=== PATIENT | female | born 1945 | race Caucasian/White ===

== ENCOUNTER → 2018-10-15 | Outpatient (CLI) | payer MEDICARE, OTHER ==
[~2018-10-15] MED LIST: ALBIPROI INH; ALBU90OI61 INH; ALLERGY RELIEF180 MG PO; ASPI81EC PO; BUDE10.22 INH; Bactrim Ds Tab1 EACH PO; FLUT44OIA IH; FURO20 PO; HYDR1TAB94 PO; IBUP800 PO; IMIP25 PO; Micro-K10 MEQ; POTASSIUM; POTCHL20ER PO; PRAM.5 PO; Percocet 5-3251 EACH PO; TORSE20 PO; VALSARTAN-HCTZ1 EAC4 PO; VERAPAMIL ER120 MG PO; Valium5 MG PO; Zithromax250 MG PO; [UNRECOGNIZED DRUG - OTHER]; [UNRECOGNIZED DRUG - REMARK] PO
== END | disposition home or self-care (01) ==
LOC: LAB SHORT 16:15 → LAB 16:15
DX: L08.9 Local infection of the skin and subcutaneous tissue, unspecified (principal)
CPT/HCPCS: 87070; 87075; 87147; 87205

== ENCOUNTER 2019-01-22 14:28 | Emergency (ER) | payer MEDICARE, OTHER ==
[~2019-01-22] VITALS: Ht 152.4 cm; Wt 133.8 kg
[2019-01-22 14:57] LABS: BASOPHILS ABSOLUTE AUTO 0.03 K/mm3 (0.00-0.23); BASOPHILS PERCENT AUTO 0 % (0-2); EOSINOPHILS ABSOLUTE AUTO 0.04 K/mm3 (0.00-0.68); EOSINOPHILS PERCENT AUTO 1 % (0-6); Hematocrit 42.3 % (33.0-51.0); Hemoglobin 12.1 g/dL (11.5-16.0); IMMATURE GRAN ABSOLUTE AUTO 0.02 K/mm3 (0.00-0.10); IMMATURE GRAN PERCENT AUTO 0 % (0-1); LYMPHOCYTES ABSOLUTE AUTO 0.81 K/mm3 (0.84-5.20); LYMPHOCYTES PERCENT AUTO 10 % (21-46); MONOCYTES ABSOLUTE AUTO 0.65 K/mm3 (0.16-1.47); MONOCYTES PERCENT AUTO 8 % (4-13); Mean Corpuscular HGB Conc 28.6 g/dL (31.5-36.5); Mean Corpuscular Volume 98 fL (80-100); Mean Platelet Volume 9.8 fL (9.1-12.4); NEUTROPHILS PERCENT AUTO 81 % (41-73); Platelet Count 207 K/mm3 (150-400); RDW Coefficient Variation 14.8 % (11.7-14.2); RDW Standard Deviation 53.4 fL (35.1-46.3); Red Blood Cell Count 4.32 M/mm3 (3.80-5.20); White Blood Cell Count 8.05 K/mm3 (4.00-11.30)
[2019-01-22 15:13] LABS: Albumin, Blood 2.9 g/dL (3.4-5.0); Albumin/Globulin Ratio 0.5 (0.8-1.8); Bilirubin, Total 0.3 mg/dL (0.1-1.0); Bun/Creatinine Ratio 32.7 (12.0-20.0); Calcium, Blood 8.9 mg/dL (8.5-10.1); Creatinine, Blood 1.13 mg/dL (0.40-1.00); Globulin, Blood 5.3 g/dL (2.2-4.0); Potassium, Blood 4.5 mmol/L (3.5-5.5); Total Protein, Blood 8.2 g/dL (6.4-8.2)
[2019-01-22 17:42] LABS: Source, Urine Catheter
[2019-01-22] MEDS ORDERED: CARV6.25 PO (17:44)
[2019-01-22] MEDS ORDERED: LOSARTAN-HCTZ1 EAC2 PO (17:45)
[2019-01-22 18:22] LABS: Bilirubin, Urine Neg (Neg); Blood, Urine 1+ (Neg); Glucose Qualitative, Urine Neg (Neg); Ketones, Urine 1+ (Neg); Leukocyte Esterase, Urine 1+ (Neg); Nitrite, Urine Neg (Neg); Protein, Urine 2+ (Neg); Urobilinogen, Urine 1+ (Normal)
[2019-01-22 18:32] LABS: Appearance, Urine Clear (Clear); Color, Urine Yellow (P-Yellow)
[2019-01-22 18:43] LABS: Amorphous Light (0-Heavy); Bacteria Mod /hpf; Red Blood Cells, Urine 0-2 /hpf (0-2)
[2019-01-22 18:44] LABS: Squamous Epithelial Cells Mod /hpf (Few)
[2019-01-22 18:59] LABS: Free Thyroxine 0.98 ng/dL (0.70-1.60)
[2019-01-22 19:01] LABS: Triiodothyronine, Free 2.09 pg/mL (2.18-3.98)
== END 2019-01-22 20:26 | disposition home or self-care (01) ==
LOC: ER 14:28
PROVIDERS: Emergency Medicine; Physician Assistant
DX: R53.1 Weakness (principal); J44.9 Chronic obstructive pulmonary disease, unspecified; I10 Essential (primary) hypertension; E66.01 Morbid (severe) obesity due to excess calories; Z79.899 Other long term (current) drug therapy; Z79.82 Long term (current) use of aspirin; Z68.43 Body mass index [BMI] 50.0-59.9, adult
CPT/HCPCS: 36415; 70450; 71046; 80053; 81001; 83880; 84439; 84443; 84481; 84484; 85025; 87086; 93005; 93010; 99284-25; P9612

== ENCOUNTER 2019-01-26 16:19 | Inpatient (IN) | payer MEDICARE, OTHER ==
[~2019-01-26] VITALS: Ht 180.3 cm; Wt 133.8 kg
[~2019-01-26 16:19] MED LIST changes: +CARV6.25 PO; +LOSARTAN-HCTZ1 EAC2 PO
[2019-01-26 17:30] LABS: BASOPHILS ABSOLUTE AUTO 0.03 K/mm3 (0.00-0.23); BASOPHILS PERCENT AUTO 0 % (0-2); EOSINOPHILS ABSOLUTE AUTO 0.04 K/mm3 (0.00-0.68); EOSINOPHILS PERCENT AUTO 0 % (0-6); IMMATURE GRAN ABSOLUTE AUTO 0.03 K/mm3 (0.00-0.10); IMMATURE GRAN PERCENT AUTO 0 % (0-1); LYMPHOCYTES ABSOLUTE AUTO 0.76 K/mm3 (0.84-5.20); LYMPHOCYTES PERCENT AUTO 8 % (21-46); MONOCYTES ABSOLUTE AUTO 0.65 K/mm3 (0.16-1.47); MONOCYTES PERCENT AUTO 7 % (4-13); Mean Corpuscular HGB 27.5 pg (26.0-34.0); Mean Corpuscular HGB Conc 28.6 g/dL (31.5-36.5); Mean Corpuscular Volume 96 fL (80-100); Mean Platelet Volume 9.7 fL (9.1-12.4); NEUTROPHILS PERCENT AUTO 84 % (41-73); Platelet Count 194 K/mm3 (150-400); RDW Coefficient Variation 14.9 % (11.7-14.2); RDW Standard Deviation 52.5 fL (35.1-46.3); Red Blood Cell Count 4.37 M/mm3 (3.80-5.20); White Blood Cell Count 9.11 K/mm3 (4.00-11.30)
[2019-01-26 17:50] LABS: Alanine Aminotransfer (ALT/SGP 18 U/L (12-78); Albumin, Blood 2.9 g/dL (3.4-5.0); Albumin/Globulin Ratio 0.5 (0.8-1.8); Alk Phos 107 U/L (50-136); Anion Gap 1 mmol/L (6-16); Aspartate Aminotrans (AST/SGOT 14 U/L (12-37); Bilirubin, Total 0.4 mg/dL (0.1-1.0); Blood Urea Nitrogen 22 mg/dL (8-24); Bun/Creatinine Ratio 30.9 (12.0-20.0); CO2, Blood 39 mmol/L (21-32); Calcium, Blood 9.3 mg/dL (8.5-10.1); Chloride, Blood 96 mmol/L (98-108); Creatinine, Blood 0.71 mg/dL (0.40-1.00); Globulin, Blood 5.5 g/dL (2.2-4.0); Glomerular Filtration Rate >60 (60-); Glucose, Blood 145 mg/dL (70-99); Potassium, Blood 4.4 mmol/L (3.5-5.5); Sodium, Blood 136 mmol/L (136-145); Total Protein, Blood 8.4 g/dL (6.4-8.2); Troponin I <0.015 ng/mL (0.000-0.040)
[2019-01-26] MEDS ORDERED: FURO40 PO (19:01)
[2019-01-26] MEDS ORDERED: PRAM.5 PO (19:04)
[2019-01-27 01:03] LABS: Adenovirus Not Detected (NOT DETECT); Coronavirus 229E Not Detected (NOT DETECT); Coronavirus HKU1 Not Detected (NOT DETECT); Coronavirus NL63 Not Detected (NOT DETECT); Coronavirus OC43 Not Detected (NOT DETECT); Human Metapneumovirus Not Detected (NOT DETECT); Human Rhinovirus/Enterovirus Not Detected (NOT DETECT); Influenza A Not Detected (NOT DETECT); Influenza A/H1 Not Detected (NOT DETECT); Influenza A/H3 Not Detected (NOT DETECT)
[2019-01-27 01:04] LABS: Bordetella pertussis Not Detected (NOT DETECT); Chlamydophila pneumoniae Not Detected (NOT DETECT); Influenza A/2009-H1 Not Detected (NOT DETECT); Influenza B Not Detected (NOT DETECT); Mycoplasma pneumoniae Not Detected (NOT DETECT); Parainfluenza Virus 1 Not Detected (NOT DETECT); Parainfluenza Virus 2 Not Detected (NOT DETECT); Parainfluenza Virus 3 Not Detected (NOT DETECT); Parainfluenza Virus 4 Not Detected (NOT DETECT); Respiratory Syncytial Virus Not Detected (NOT DETECT)
[2019-01-27 05:31] LABS: BASOPHILS ABSOLUTE AUTO 0.03 K/mm3 (0.00-0.23); BASOPHILS PERCENT AUTO 0 % (0-2); EOSINOPHILS ABSOLUTE AUTO 0.04 K/mm3 (0.00-0.68); EOSINOPHILS PERCENT AUTO 1 % (0-6); Hematocrit 39.3 % (33.0-51.0); Hemoglobin 11.1 g/dL (11.5-16.0); IMMATURE GRAN ABSOLUTE AUTO 0.02 K/mm3 (0.00-0.10); IMMATURE GRAN PERCENT AUTO 0 % (0-1); LYMPHOCYTES ABSOLUTE AUTO 0.74 K/mm3 (0.84-5.20); LYMPHOCYTES PERCENT AUTO 11 % (21-46); MONOCYTES ABSOLUTE AUTO 0.59 K/mm3 (0.16-1.47); MONOCYTES PERCENT AUTO 9 % (4-13); Mean Corpuscular HGB 27.5 pg (26.0-34.0); Mean Corpuscular HGB Conc 28.2 g/dL (31.5-36.5); Mean Corpuscular Volume 98 fL (80-100); Mean Platelet Volume 10.2 fL (9.1-12.4); NEUTROPHILS ABSOLUTE AUTO 5.41 K/mm3 (1.96-9.15); NEUTROPHILS PERCENT AUTO 79 % (41-73); Platelet Count 199 K/mm3 (150-400); RDW Coefficient Variation 15.2 % (11.7-14.2); RDW Standard Deviation 54.3 fL (35.1-46.3); Red Blood Cell Count 4.03 M/mm3 (3.80-5.20); White Blood Cell Count 6.83 K/mm3 (4.00-11.30)
--- NOTE | 2019-01-27 05:57 | NUR ---
SHIFT SUMMARY PT NEW ED ADMIT THIS EVENING. PT SOB, LUNG SOUNDS DIM THROUGHOUT WITH CRACKLES IN THE BASES. PT EDEMATOUS IN BLE'S WITH 3+ EDEMA. REDNESS IN PANNUS FOLDS. NYSTATIN POWDER ORDERED AND PLACED ON PT. PT HAS NOT VOIDED THIS EVENING, FAMILY SAYS THIS IS NOT UNUSUAL FOR HER TO GO STRETCHES WITHOUT VOIDING. PT VERY TIRED THIS EVENING. PT GETS WORKED UP EASILY REQUIRING 4-5 L O2 NC TO KEEP O2 SATS GREATER THAN 90%. PT ALSO WORE CPAP AT NIGHT WITH 4-5 L O2 BLEED IN. FAMILY TO BRING IN HOME CPAP TODAY. VERY SUPPORTIVE FAMILY. PT BECOMES SOB VERY EASILY WITH LITTLE TO NO EXERTION. CANNOT BE LAID DOWN FLAT. PT HAS POOR APPETITE AT THIS. DENIES PAIN WHILE IN BED. DOES REPORT SHE HAS PAIN IN HER KNEES WHEN SHE AMBULATES. PT HAS NOT BEEN OUT OF BED SINCE ADMISSION. GRANDDAUGHTER AT BEDSIDE THROUGHOUT THE NIGHT. PT CONTINUES TO BE VERY SLEEPY. RESTING AT THIS TIME. BLOOD PRESSURE ELEVATED THIS EVENING, [facility] OCCUPATIONAL THERAPIST NOTIFIED. NEW ORDER FOR PO APRESOLINE 25 MG X 1 AND APRESOLINE 10 MG IV Q 4 PRN. BLOOD PRESSURE IMPROVED BUT REMAINS SLIGHTLY ELEVATED. OTHERWISE VSS AND PT RESTING AT THIS TIME. WILL CONTINUE TO MONITOR AND REPORT TO DAY RN.
[2019-01-27 06:26] LABS: Anion Gap 0 mmol/L (6-16); Blood Urea Nitrogen 21 mg/dL (8-24); CO2, Blood 40 mmol/L (21-32); Calcium, Blood 8.9 mg/dL (8.5-10.1); Chloride, Blood 99 mmol/L (98-108); Creatinine, Blood 0.81 mg/dL (0.40-1.00); Glomerular Filtration Rate >60 (60-); Glucose, Blood 111 mg/dL (70-99); Potassium, Blood 4.8 mmol/L (3.5-5.5); Sodium, Blood 139 mmol/L (136-145)
--- NOTE | 2019-01-27 16:38 | NUR ---
SHIFT SUMMARY PATIENT A&O X4, 2PA TO BSC. DENIES ANY PAIN OR NAUSEA THIS SHIFT. SOB WITH ANY ACTIVITY. O2 @ 4L NC. PATIENT WEARS CPAP WHILE SLEEPING. VSS. SATS >90%. REPOSITIONED PATIENT NEEDED. FAMILY AT THE BEDSIDE. NO ACUTE CHANGES. BED IN LOWEST POSITION, CALL LIGHT WITHIN REACH. RN WILL CONTINUE TO MONITOR.
[2019-01-28 05:43] LABS: Albumin, Blood 2.7 g/dL (3.4-5.0); Anion Gap 1 mmol/L (6-16); Blood Urea Nitrogen 24 mg/dL (8-24); Bun/Creatinine Ratio 26.9 (12.0-20.0); CO2, Blood 39 mmol/L (21-32); Calcium, Blood 8.9 mg/dL (8.5-10.1); Chloride, Blood 98 mmol/L (98-108); Creatinine, Blood 0.89 mg/dL (0.40-1.00); Glomerular Filtration Rate >60 (60-); Glucose, Blood 128 mg/dL (70-99); Phosphorus, Blood 3.1 mg/dL (2.5-4.9); Potassium, Blood 4.7 mmol/L (3.5-5.5); Sodium, Blood 138 mmol/L (136-145)
--- NOTE | 2019-01-28 17:17 | NUR ---
SHIFT SUMMARY THE PATIENT PRESENTED THIS SHIFT WITH VITALS WNL, A&O X4 AND LUNG SOUNDS THAT WERE DIMINISHED AND COARSE IN THE BASES. THE PATIENT GOT TO HER CHAIR AT 1400 AND HAS BEEN THERE SINCE, VISITING WITH HER FAMILY. ALSO UP TO THE BEDSIDE COMMODE TWIVE. THE PATIENT'S FAMILY HAS BEEN WITH THE PATIENT ALL SHIFT. THE PATIENT IS VISITING WITH HER FAMILY, WILL CONTINUE TO MONITOR.
--- NOTE | 2019-01-29 02:28 | NUR ---
PT UNCOMFORTABLE PT REPORTING 10/10 DISCOMFORT DUE TO RESTLESS LEGS BOTHERING HER STATES IT IS A TINGLING SHARP PAIN THAT KEEPS COMING AND GOING. PT WAS MEDICATED W/MIRAPEX, TOFRANIL & TYLENOL PER ORDERS, NONE OF THESE MEDICATIONS SEEMED TO HELP DISCOMFORT. HEAT & ICE WERE BOTH ALSO TRIED WHICH SHOWED NO IMPROVEMENTS. PT STILL MOANING SITTING ON SIDE OF BED W/SPO2 DROPPING DUE TO DISCOMFORT, ENCOURAGED DEEP BREATHING THROUGH NOSE WHICH INCREASED SPO2. DR ESCOBEDO NOTIFIED OF PTS DISCOMFORT & 2.5 MG/10MG SYRINGE VALIUM GIVEN PER ORDERS, WASTED REST OF MEDICATION W/RUBY REBOLLEDO RN. PT NOW STATES DISCOMFORT IS 5/10 IN BILATERAL LEGS. WILL CONTINUE TO MONITOR PT.
[2019-01-29 06:00] LABS: Albumin, Blood 2.6 g/dL (3.4-5.0); Anion Gap 0 mmol/L (6-16); Blood Urea Nitrogen 19 mg/dL (8-24); Bun/Creatinine Ratio 25.9 (12.0-20.0); CO2, Blood 38 mmol/L (21-32); Calcium, Blood 8.9 mg/dL (8.5-10.1); Chloride, Blood 101 mmol/L (98-108); Creatinine, Blood 0.73 mg/dL (0.40-1.00); Glomerular Filtration Rate >60 (60-); Glucose, Blood 110 mg/dL (70-99); Phosphorus, Blood 3.2 mg/dL (2.5-4.9); Potassium, Blood 5.3 mmol/L (3.5-5.5); Sodium, Blood 139 mmol/L (136-145)
--- NOTE | 2019-01-29 06:21 | NUR ---
SHIFT SUMMARY PT AWAKE MOST OF NIGHT DUE TO BILATERAL LEG DISCOMFORT FROM RESTLESS LEGS, READ PREVIOUS NOTE. PT WAS MEDICATED PER ORDERS AFTER NOTIFYING HOSPITALIST THAN PT WAS ABLE TO GET A COUPLE HOURS OF SLEEP W/DISCOMFORT DROPPING TO A 3/10. DENIES NAUSEA, HAS SOB W/ANY EXERTION OR ACTIVITY. HAS DIFFICULTY BREATHING WHEN LAID FLAT, SPO2 DROPS W/ACTIVITY OR DISCOMFORT & PT IS REMINDED TO TAKE DEEP BREATHS IN THROUGH NASAL CANNULA WHICH THAN SLOWLY RAISES SPO2 >90%, ON 4L NC & WORE CPAP WHILE ASLEEP. 2 PERSON ASSIST W/GAITBELT & FWW TO BS. MARTA @BEDSIDE T/O NIGHT, CALL LIGHT IN REACH & I WILL CONTINUE TO MONITOR.
[2019-01-29 06:40] LABS: BASOPHILS ABSOLUTE AUTO 0.04 K/mm3 (0.00-0.23); BASOPHILS PERCENT AUTO 1 % (0-2); EOSINOPHILS ABSOLUTE AUTO 0.06 K/mm3 (0.00-0.68); EOSINOPHILS PERCENT AUTO 1 % (0-6); Hematocrit 39.4 % (33.0-51.0); Hemoglobin 11.1 g/dL (11.5-16.0); IMMATURE GRAN ABSOLUTE AUTO 0.02 K/mm3 (0.00-0.10); IMMATURE GRAN PERCENT AUTO 0 % (0-1); LYMPHOCYTES ABSOLUTE AUTO 0.96 K/mm3 (0.84-5.20); LYMPHOCYTES PERCENT AUTO 13 % (21-46); MONOCYTES ABSOLUTE AUTO 0.67 K/mm3 (0.16-1.47); MONOCYTES PERCENT AUTO 9 % (4-13); Mean Corpuscular HGB 27.4 pg (26.0-34.0); Mean Corpuscular HGB Conc 28.2 g/dL (31.5-36.5); Mean Corpuscular Volume 97 fL (80-100); Mean Platelet Volume 9.7 fL (9.1-12.4); NEUTROPHILS ABSOLUTE AUTO 5.53 K/mm3 (1.96-9.15); NEUTROPHILS PERCENT AUTO 76 % (41-73); Platelet Count 178 K/mm3 (150-400); RDW Standard Deviation 53.3 fL (35.1-46.3); Red Blood Cell Count 4.05 M/mm3 (3.80-5.20); White Blood Cell Count 7.28 K/mm3 (4.00-11.30)
--- NOTE | 2019-01-29 18:37 | NUR ---
SHIFT SUMMARY ANALILIA STRUGGLED WITH HTN TODAY. PRN HYDRALAZINE GIVEN. DR RAINES INFORMED. 3-4L OXYGEN NC WORKED WELL FOR HER. WORKED WITH PT. 1PA TO BSC/BATHROOM. R UPPER ABD SHOWED SM SKIN SORE, CHRONIC PER PT. RED RASH IN GROIN, NYSTATIN IN EMAR. WCTM
--- NOTE | 2019-01-29 22:35 | NUR ---
RESTLESS LEG SYNDROME REMAINS UNRESOLVED. PT AND FAMILY AT THE BEDSIDE ARE C/O SEVERE RESTLESS LEG SYNDROME. THEY REPORT THAT PT RECEIVED A ONE TIME ORDER OF VALIUM IN THE EARLY HOURS THIS MORNING. THEY ARE REQUESTING ANOTHER DOSE SO THAT THE PT CAN SLEEP. HOSPITALIST WAS CALLED AND A NICOLE WARNING ABOUT RESPIRATORY DEPRESSION WAS ADVISED. PT AND FAMILY WERE GENTLY EDUCATED ABOUT THE RISKS FOR RESPIRATORY DEPRESSION ASSOCIATED WITH THE USE OF VALIUM. PT WAS MADE AWARE THAT ANOTHER ONE TIME ORDER OF VALIUM WAS AVAILABLE BUT BOTH FAMILY AND PT REFUSED AT THIS TIME. PT REMAINS CHRISTIANSON, AND SOB IN BED. PT HAS RESOLVED TO "JUST GET THRU IT FOR TONIGHT" WILL CONTINUE TO MONITOR.
--- NOTE | 2019-01-30 05:22 | NUR ---
VSS, AFEBRILE, A/O, OBESE, CHRISTIANSON, LUNGS ARE WHEEZY/TIGHT, PT DESATS EASILY, CPAP AT HS, FAMILY AT THE BEDSIDE, PT HAS A ONE TIME ORDER FOR VALIUM BUT IS WORRIED ABOUT GOING TO THE ICU ON A VENT IF SHE TAKES TOO MUCH OF THAT. RESTLESS LEG SYNDROME WOKE HER OFTEN DURING THE NOC. WILL REPORT TO ON-COMING SHIFT
--- NOTE | 2019-01-30 07:14 | NUR ---
PATIENT PERMISSION PATIENT GAVE THIS STUDENT NURSE PERMISSION TO PROVIDE CARE ON 01/30/19 FROM [phone].
--- NOTE | 2019-01-30 18:35 | NUR ---
PATIENT ALERT AND ORIENTED. GETS WINDED WITH SMALL MOVEMENTS; SUCH , DANGLING. IS ONE PERSON ASSIST TO BSC OR BATHROOM, BUT NEEDS HELP IN CLEANING. NO REDNESS BACK OR BUTTOCK OBSERVED. SLIGHT REDNESS TO PANUS WITH NYSTATIN USED. COOPERATIVE. PLEASANT. RELATIVES VERY ATTENTIVE. WILL CONTINUE TO MONITOR.
--- NOTE | 2019-01-31 05:05 | NUR ---
VSS, AFEBRILE, A/O. PT SLEPT WELL OVERNOC WITH CPAP IN PLACE. NO COMPLAINTS OF RESTLESS LEGS OR DISCOMFORT NOTED. PT IS HOLDING HER 02 SATURATION BETTER TODAY THAN SHE HAS OVER THE PAST FEW DAYS. WILL REPORT TO ON-COMING SHIFT.
[2019-01-31 06:10] LABS: Albumin, Blood 2.7 g/dL (3.4-5.0); Anion Gap 1 mmol/L (6-16); Blood Urea Nitrogen 22 mg/dL (8-24); CO2, Blood 41 mmol/L (21-32); Chloride, Blood 96 mmol/L (98-108); Creatinine, Blood 0.79 mg/dL (0.40-1.00); Glomerular Filtration Rate >60 (60-); Glucose, Blood 95 mg/dL (70-99); Phosphorus, Blood 3.4 mg/dL (2.5-4.9); Potassium, Blood 5.2 mmol/L (3.5-5.5); Sodium, Blood 138 mmol/L (136-145)
--- NOTE | 2019-01-31 08:04 | NUR ---
Patient gave nursing aide permission to provide care [id number].
[2019-01-31] MEDS ORDERED: ACETAMINOPHEN500 MG PO (12:49)
[2019-01-31] MEDS ORDERED: ALBU2.5V5 NEB (12:50)
[2019-01-31] MEDS ORDERED: AZIT500 PO (12:51)
[2019-01-31] MEDS ORDERED: CEFU500T30 PO (12:51)
[2019-01-31] MEDS ORDERED: Senna Plus Tab1 EACH PO (12:53)
[2019-01-31] MEDS ORDERED: GUAI600T33 PO (12:53)
[2019-01-31] MEDS ORDERED: Nystop60 GM TOP (12:56)
--- NOTE | 2019-01-31 15:23 | NUR ---
PATIENT D/C'D TO [facility] VIA W/C VAN. PACKET GIVEN TO PALS NURSE. REPORT CALLED TO AMADOR RIVERA. PATIENT DENIES ANY QUESTIONS OR CONCERNS.IV D/C'D PRIOR TO D/C.
== END 2019-01-31 15:06 | DRG 193 ==
LOC: ER 16:19 → MEDS 18:26 → ENPENDDIS 01-31 11:00 → MEDS 01-31 15:06
PROVIDERS: Internal Medicine; Physician Assistant; ADMIT Internal Medicine
PROC: 5A09357 Assistance with Respiratory Ventilation, Less than 24 Consecutive Hours, Continuous Positive Airway Pressure (ICD-10-PCS; principal; 2019-01-26)
DX: J18.1 Lobar pneumonia, unspecified organism (principal); J96.21 Acute and chronic respiratory failure with hypoxia; J44.0 Chronic obstructive pulmonary disease with (acute) lower respiratory infection; Z68.41 Body mass index [BMI] 40.0-44.9, adult; E66.2 Morbid (severe) obesity with alveolar hypoventilation; Z79.82 Long term (current) use of aspirin; G25.81 Restless legs syndrome; I12.9 Hypertensive chronic kidney disease with stage 1 through stage 4 chronic kidney disease, or unspecified chronic kidney disease; N18.3 Chronic kidney disease, stage 3 (moderate); Z99.81 Dependence on supplemental oxygen
CPT/HCPCS: 36415; 71260; 80048; 80053; 80069; 83605; 83880; 84145; 84484; 85025; 87040; 87486; 87581; 87633; 87798; 90686; 94640; 94660; 94762; 96365-59; 97110; 97116; 97162; 97530; 99285-25; J0360; J0456; J0696; J1650; J3360; J7050; Q9967

== ENCOUNTER 2019-02-01 23:13 | Inpatient (IN) | payer MEDICARE, OTHER ==
[~2019-02-01] VITALS: Ht 152.4 cm; Wt 144.2 kg
[~2019-02-01 23:13] MED LIST changes: +ACETAMINOPHEN500 MG PO; +ALBU2.5V5 NEB; +AZIT500 PO; +CEFU500T30 PO; +FURO40 PO; +GUAI600T33 PO; +Nystop60 GM TOP; +Senna Plus Tab1 EACH PO
[2019-02-01 23:31] LABS: BASOPHILS ABSOLUTE AUTO 0.02 K/mm3 (0.00-0.23); BASOPHILS PERCENT AUTO 0 % (0-2); EOSINOPHILS ABSOLUTE AUTO 0.05 K/mm3 (0.00-0.68); EOSINOPHILS PERCENT AUTO 1 % (0-6); Hematocrit 39.3 % (33.0-51.0); Hemoglobin 10.9 g/dL (11.5-16.0); IMMATURE GRAN ABSOLUTE AUTO 0.02 K/mm3 (0.00-0.10); IMMATURE GRAN PERCENT AUTO 0 % (0-1); LYMPHOCYTES PERCENT AUTO 11 % (21-46); MONOCYTES ABSOLUTE AUTO 0.58 K/mm3 (0.16-1.47); MONOCYTES PERCENT AUTO 9 % (4-13); Mean Corpuscular HGB 28.2 pg (26.0-34.0); Mean Corpuscular HGB Conc 27.7 g/dL (31.5-36.5); Mean Corpuscular Volume 102 fL (80-100); NEUTROPHILS PERCENT AUTO 79 % (41-73); Platelet Count 170 K/mm3 (150-400); RDW Coefficient Variation 14.9 % (11.7-14.2); RDW Standard Deviation 56.3 fL (35.1-46.3); Red Blood Cell Count 3.86 M/mm3 (3.80-5.20); White Blood Cell Count 6.37 K/mm3 (4.00-11.30)
[2019-02-01 23:47] LABS: Alanine Aminotransfer (ALT/SGP 17 U/L (12-78); Albumin, Blood 2.6 g/dL (3.4-5.0); Albumin/Globulin Ratio 0.5 (0.8-1.8); Alk Phos 89 U/L (50-136); Anion Gap 0 mmol/L (6-16); Aspartate Aminotrans (AST/SGOT 17 U/L (12-37); Bilirubin, Total 0.2 mg/dL (0.1-1.0); Blood Urea Nitrogen 28 mg/dL (8-24); CO2, Blood 43 mmol/L (21-32); Calcium, Blood 8.9 mg/dL (8.5-10.1); Chloride, Blood 95 mmol/L (98-108); Globulin, Blood 5.1 g/dL (2.2-4.0); Glomerular Filtration Rate 58 (60-); Glucose, Blood 168 mg/dL (70-99); Potassium, Blood 5.5 mmol/L (3.5-5.5); Sodium, Blood 138 mmol/L (136-145); Total Protein, Blood 7.7 g/dL (6.4-8.2); Troponin I <0.015 ng/mL (0.000-0.040)
[2019-02-01 23:49] LABS: PO2 Arterial 79.4 mmHg (80-100); pH Blood Arterial 7.29 (7.35-7.45)
[2019-02-01 23:50] LABS: PCO2 Arterial 98 mmHg (35-45)
[2019-02-02 00:16] LABS: Source, Urine Catheter
[2019-02-02 00:19] LABS: Bilirubin, Urine Neg (Neg); Blood, Urine Neg (Neg); Glucose Qualitative, Urine Neg (Neg); Ketones, Urine 1+ (Neg); Leukocyte Esterase, Urine Neg (Neg); Nitrite, Urine Neg (Neg); Protein, Urine 1+ (Neg); Specific Gravity, Urine 1.025 (1.003-1.022); Urobilinogen, Urine NORM (Normal)
[2019-02-02 00:21] LABS: Appearance, Urine Clear (Clear); Color, Urine Yellow (P-Yellow)
--- NOTE | 2019-02-02 03:45 | NUR ---
Admission: Patient arrived to unit at 0330hr via stretcher, accompanied by ED nurse. ON 3L/NC, O2-94%, denies dyspnea/SOB with HOB elevated, c/o slight dyspnea lying flat. Placed back on BiPAP mask at 22/8/35%, until repeat ABG is drawn, tolerating mask without difficulty. Denies pain/discomfort. VSS, hearth rhythm shows NSR to sinus fercho, 50's-60's, with occasional PAC's. Periphearl IV to LAC patent and intact. Benitez cath patent and intact, draining yellow/blood tinged urine. Will continue to monitor urine consistency, appears only to be small amount of blood at this time, catheter newly placed in ED before admission. Several family members to room, at bedside. Will continue to monitor for pain, safety, comfort.
[2019-02-02 04:51] LABS: PCO2 Arterial 81.5 mmHg (35-45); PO2 Arterial 58.6 mmHg (80-100); pH Blood Arterial 7.37 (7.35-7.45)
--- NOTE | 2019-02-02 06:19 | NUR ---
Shift Summary: Patient slept well throughout remainder of shift. Continued on BiPAP mask at 22/8/35% without difficulty. ABD at 0500 showed improvement, but CO2 remained elevated (81.5), no changes made to BiPAP settings. Continues to deny pain/discomfort. Benitez cath remains patent and intact, amount of blood in urine decreasing, now only very scant amount, light pink tinged. New peripheral IV placed to rt forearm, both IV's remain patent and intact. VSS, O2-92-96%. Several family members remain in room, calm and cooperative with staff. Will continue to monitor until report to day shift RN.
[2019-02-02 06:21] LABS: BASOPHILS ABSOLUTE AUTO 0.02 K/mm3 (0.00-0.23); BASOPHILS PERCENT AUTO 0 % (0-2); EOSINOPHILS ABSOLUTE AUTO 0.03 K/mm3 (0.00-0.68); EOSINOPHILS PERCENT AUTO 0 % (0-6); Hematocrit 38.5 % (33.0-51.0); Hemoglobin 10.7 g/dL (11.5-16.0); IMMATURE GRAN ABSOLUTE AUTO 0.01 K/mm3 (0.00-0.10); IMMATURE GRAN PERCENT AUTO 0 % (0-1); LYMPHOCYTES PERCENT AUTO 7 % (21-46); MONOCYTES ABSOLUTE AUTO 0.26 K/mm3 (0.16-1.47); MONOCYTES PERCENT AUTO 4 % (4-13); Mean Corpuscular HGB Conc 27.8 g/dL (31.5-36.5); Mean Corpuscular Volume 101 fL (80-100); Mean Platelet Volume 9.9 fL (9.1-12.4); NEUTROPHILS ABSOLUTE AUTO 6.02 K/mm3 (1.96-9.15); NEUTROPHILS PERCENT AUTO 88 % (41-73); Platelet Count 165 K/mm3 (150-400); RDW Standard Deviation 56.1 fL (35.1-46.3); Red Blood Cell Count 3.82 M/mm3 (3.80-5.20); White Blood Cell Count 6.84 K/mm3 (4.00-11.30)
[2019-02-02 07:20] LABS: CO2, Blood 43 mmol/L (21-32)
[2019-02-02 07:21] LABS: Albumin, Blood 2.8 g/dL (3.4-5.0); Anion Gap Unable to Calculate mmol/L (6-16); Blood Urea Nitrogen 29 mg/dL (8-24); Bun/Creatinine Ratio 31.1 (12.0-20.0); Calcium, Blood 9.2 mg/dL (8.5-10.1); Chloride, Blood 96 mmol/L (98-108); Creatinine, Blood 0.93 mg/dL (0.40-1.00); Glomerular Filtration Rate >60 (60-); Glucose, Blood 102 mg/dL (70-99); Phosphorus, Blood 2.8 mg/dL (2.5-4.9); Potassium, Blood 5.9 mmol/L (3.5-5.5); Sodium, Blood 138 mmol/L (136-145)
--- NOTE | 2019-02-02 13:18 | NUR ---
REASSESSMENT: PT TOLERATED AN HOUR BREAK OFF THE BIPAP THIS MORNING AND THEN WAS ABLE TO EAT LUNCH AT NOON AND IS STILL ON A BREAK FROM THE BIPAP. LUNGS ARE DIM, FEW SCATTERED WHEEZES. SR, BP STABLE. PANG WITH BLOOD TINGED URINE. LOTS OF FAMILY IN THE ROOM AND HAVE BEEN FULLY UPDATED.
--- NOTE | 2019-02-02 14:00 | NUR ---
RECEIVED REPORT FROM AMADOR Hardy WILL ASSUME CARE WHEN PATIENT ARRIVES TO PCU.
--- NOTE | 2019-02-02 14:16 | NUR ---
TRANSFER: PT TRANSFERRED TO PCU 16. REPORT GIVEN TO AMADOR CHANG. PT TRANSPORTED VIA BED WITH RN. BIPAP MOVED TO ROOM AND RT IN ROOM TO SET IT UP TO PUT PT BACK ON IT. PT'S FAMILY WITH HER AT TIME OF TRANSFER AND ALL BELONGINGS TRANSFERRED WITH PT.
--- NOTE | 2019-02-02 17:53 | NUR ---
DR GREEN IN TO SEE PATIENT TO EDUCATE FAMILY AND HELP THEM TO UNDERSTAND PATIENT STATUS AND CONDITION AT THIS TIME. WILL CONTINUE TO BE AVALIABLE TO FAMILY AND MONITOR PATIENT.
--- NOTE | 2019-02-02 19:55 | NUR ---
PT RESTED THROUGHOUT THE AFTERNOON, FAMILY AT BEDSIDE FOR SUPPORT AND ENCOURAGEMENT. A LOT OF EDUCATION GIVEN TO FAMILY R/T CONDITION AND CURRENT ILLNESS. WILL CONTINUE TO MONITOR AND GIVE REPORT TO NOC RN.
[2019-02-03 04:06] LABS: BASOPHILS ABSOLUTE AUTO 0.03 K/mm3 (0.00-0.23); BASOPHILS PERCENT AUTO 0 % (0-2); EOSINOPHILS ABSOLUTE AUTO 0.05 K/mm3 (0.00-0.68); EOSINOPHILS PERCENT AUTO 1 % (0-6); Hematocrit 36.9 % (33.0-51.0); Hemoglobin 10.6 g/dL (11.5-16.0); IMMATURE GRAN ABSOLUTE AUTO 0.03 K/mm3 (0.00-0.10); IMMATURE GRAN PERCENT AUTO 0 % (0-1); LYMPHOCYTES ABSOLUTE AUTO 1.08 K/mm3 (0.84-5.20); LYMPHOCYTES PERCENT AUTO 13 % (21-46); MONOCYTES ABSOLUTE AUTO 0.68 K/mm3 (0.16-1.47); MONOCYTES PERCENT AUTO 8 % (4-13); Mean Corpuscular HGB Conc 28.7 g/dL (31.5-36.5); Mean Platelet Volume 10.4 fL (9.1-12.4); NEUTROPHILS ABSOLUTE AUTO 6.52 K/mm3 (1.96-9.15); NEUTROPHILS PERCENT AUTO 78 % (41-73); Platelet Count 179 K/mm3 (150-400); RDW Coefficient Variation 15.1 % (11.7-14.2); RDW Standard Deviation 54.2 fL (35.1-46.3); Red Blood Cell Count 3.79 M/mm3 (3.80-5.20); White Blood Cell Count 8.39 K/mm3 (4.00-11.30)
[2019-02-03 04:07] LABS: Mean Corpuscular Volume 97 fL (80-100)
[2019-02-03 04:23] LABS: Anion Gap -1 mmol/L (6-16); Blood Urea Nitrogen 31 mg/dL (8-24); Bun/Creatinine Ratio 34.4 (12.0-20.0); CO2, Blood 44 mmol/L (21-32); Calcium, Blood 9.3 mg/dL (8.5-10.1); Chloride, Blood 95 mmol/L (98-108); Glomerular Filtration Rate >60 (60-); Glucose, Blood 101 mg/dL (70-99); Potassium, Blood 5.1 mmol/L (3.5-5.5); Sodium, Blood 138 mmol/L (136-145)
[2019-02-03 05:24] LABS: PO2 Arterial 61.1 mmHg (80-100); pH Blood Arterial 7.38 (7.35-7.45)
[2019-02-03 05:25] LABS: PCO2 Arterial 84 mmHg (35-45)
--- NOTE | 2019-02-03 06:33 | NUR ---
SHIFT SUMMARY PATIENT PLEASENT AND COOPERATIVE THROUGHOUT THE NIGHT. PATIENT ALERT AND ORIENTED. PATIENT COMPLIENT WITH BIPAP USE THROUGHOUT MOST OF THE NIGHT WITH SHORT OCCATIONAL BREAKS. PATIENT HAD BEEN OFF BIPAP FOR APPROX 30 MINUTES WHEN ABG WAS DRAWN THIS AM PER RESPIRTORY THERAPY REPORT. DR STANLEY AWARE OF CRITICAL CO2 LEVELS THIS AM. PATIENT CURRENTLY ON THE BIPAP AND APPEARS TO BE RESTING WELL IN BED. CONTINUOUS BIOX IN PLACE. RON SPENT THE NIGHT AT THE BEDSIDE. WILL CONTINUE TO MONITOR PATIENT AND REPORT TO ON COMING RN.
--- NOTE | 2019-02-03 08:17 | NUR ---
PT SLEEPING WAKES TO VERBAL STIMULI ONCE AWAKE PT ORIENTED NC PLACED BIOX 93-94% PT STATED SHE IS BREATHING OK BUT HAS SOME SOB AT REST NO COUGH FAMILY AT BEDSIDE PT WANTING TO EAT WASHCLOTH GIVEN TO WASH HER FACE WANTING TO A BATH LATER
--- NOTE | 2019-02-03 11:22 | NUR ---
PT HAVING ECHO AT BEDSIDE
--- NOTE | 2019-02-03 11:49 | NUR ---
echocardiogram complete
--- NOTE | 2019-02-03 14:00 | NUR ---
FAMILY REQ TO SPEAK WITH DR GREEN WHEN HE MAKES ROUNDS IF THEY ARE NOT HERE WHEN HE COMES IF HE CAN CALL THEM NUMBER LEFT
--- NOTE | 2019-02-03 20:17 | NUR ---
shift summary: Pt has done well this shift. Resting with bipap on at 30% FIO2 with family at bedside. Pt has tolerated the Bipap well this shift with 1-1 1/2 hour breaks for meals and breaks. Pt has been A/O throughout shift. Benitez cath in place and draining. VSS this shift. Report given to night nurse and care transfered.
--- NOTE | 2019-02-03 23:35 | NUR ---
CONVERTED TO AFIB AT APPROX 2258 PATIENT CONVERTED INTO AFIB. PATIENT REPORTED TO RN THAT SHE FELT, "A LITTLE FUNNY." DR STANLEY NOTIFIED AND AN ORDER FOR A ONE TIME PUSH OF 10 MG OF IV CARDIZEM WAS ORERED. DR STANLEY WAS ALSO ASKED FOR AN ABG IN THE AM. DR STANLEY STATED SHE DID NOT FEEL IT WAS NEEDED AT THIS TIME.
--- NOTE | 2019-02-04 01:15 | NUR ---
UPDATE IV PUSH OF CARDIZEM BROUGHT PATIENT DOWN INTO THE 80'S-100'S. HOWEVER, PATIENT HAS BEEN TRENDING BACK UP AND IS NOW BACK IN THE 120'S-130'S. DR STANLEY NOTIFIED AND SHE ORDERED A CARDIZEM GTT.
--- NOTE | 2019-02-04 06:43 | NUR ---
SHIFT SUMMARY PATIENT PLEASENT AND COOPERATIVE THROUGHOUT THE NIGHT. PATIENT APPEARED TO SLEEP WELL ON AND OFF LAST NIGHT WITH NO COMPLAINTS OF PAIN OR DISCOMFORT. PATIENT OFF CARDIZEM GTT AT THIS TIME PATIENT JUST CONVERTED BACK TO NSR WITH A RATE IN THE 70'S PER FEED ADVISER. PATIENT USED HER BIPAP THROUGHOUT MOST OF THE NIGHT. CONTINUOUS BIOX IN PLACE. PATIENT'S GRANDDAUGHTER STAYED THE NIGHT IN THE ROOM. WILL CONTINUE TO MONITOR PATIENT AND REPORT TO ONCOMING RN.
[2019-02-04 07:48] LABS: Blood Urea Nitrogen 34 mg/dL (8-24); Bun/Creatinine Ratio 34.5 (12.0-20.0); Calcium, Blood 9.1 mg/dL (8.5-10.1); Chloride, Blood 94 mmol/L (98-108); Creatinine, Blood 0.99 mg/dL (0.40-1.00); Glomerular Filtration Rate 59 (60-); Glucose, Blood 118 mg/dL (70-99); Potassium, Blood 4.6 mmol/L (3.5-5.5); Sodium, Blood 139 mmol/L (136-145)
[2019-02-04 07:54] LABS: Anion Gap Unable to Calculate mmol/L (6-16)
[2019-02-04 07:56] LABS: CO2, Blood >45 mmol/L (21-32)
--- NOTE | 2019-02-04 08:16 | NUR ---
RECEIVED REPORT AND ASSUMED CARE OF PATIENT. SHE IS ALERT AND PLEASANT THIS MORNING.
[2019-02-04 14:16] LABS: International Normalized Ratio 1.05; Prothrombin Time Results 11.1 Sec (9.7-11.5)
--- NOTE | 2019-02-04 19:46 | NUR ---
PT HAD A GOOD DAY TODAY, SHE HAS HAD PLEASANT AFFECT AND ABLE TO EXPRESS HER NEEDS APPROPRIATELY THIS SHIFT. FAMILY HAS BEEN AT BEDSIDE MOST OF THE DAY. DR GREEN SAW THE PATIENT TODAY AND DISCUSSED THE AFIB EVENT DURING THE PRIOR SHIFT, HE STARTED THE PATIENT ON BLOOD THINNER AND GAVE A LOT OF EDUCATION TO THE FAMILY ABOUT THE REASONS AND RATIONALE FOR USING THE BLOOD THINNER TO PREVENT A STROKE. PT HAS BEEN OFF AND ON THE BIPAP, HER O2 SAT HAVE BEEN BETWEEN 95-100%, TURNED O2 DOWN TO 2 LPM AND WILL CONTINUE TO MONITOR CLOSELY. PANG REMOVED AND PT VOIDED WITHOUT INCIDENT. WILL CONTINUE TO MONITOR AND GIVE REPORT TO NOC RN.
[2019-02-05 04:01] LABS: BASOPHILS ABSOLUTE AUTO 0.02 K/mm3 (0.00-0.23); BASOPHILS PERCENT AUTO 0 % (0-2); EOSINOPHILS ABSOLUTE AUTO 0.06 K/mm3 (0.00-0.68); EOSINOPHILS PERCENT AUTO 1 % (0-6); Hematocrit 35.2 % (33.0-51.0); IMMATURE GRAN ABSOLUTE AUTO 0.01 K/mm3 (0.00-0.10); IMMATURE GRAN PERCENT AUTO 0 % (0-1); LYMPHOCYTES ABSOLUTE AUTO 1.06 K/mm3 (0.84-5.20); LYMPHOCYTES PERCENT AUTO 18 % (21-46); MONOCYTES ABSOLUTE AUTO 0.66 K/mm3 (0.16-1.47); MONOCYTES PERCENT AUTO 11 % (4-13); Mean Corpuscular HGB 27.7 pg (26.0-34.0); Mean Corpuscular HGB Conc 28.4 g/dL (31.5-36.5); Mean Corpuscular Volume 98 fL (80-100); Mean Platelet Volume 10.4 fL (9.1-12.4); NEUTROPHILS PERCENT AUTO 70 % (41-73); Platelet Count 144 K/mm3 (150-400); RDW Coefficient Variation 15.4 % (11.7-14.2); RDW Standard Deviation 54.9 fL (35.1-46.3); Red Blood Cell Count 3.61 M/mm3 (3.80-5.20); White Blood Cell Count 6.01 K/mm3 (4.00-11.30)
[2019-02-05 04:28] LABS: Albumin, Blood 2.6 g/dL (3.4-5.0); Blood Urea Nitrogen 34 mg/dL (8-24); Bun/Creatinine Ratio 34.1 (12.0-20.0); Chloride, Blood 95 mmol/L (98-108); Glomerular Filtration Rate 58 (60-); Glucose, Blood 105 mg/dL (70-99); Phosphorus, Blood 3.6 mg/dL (2.5-4.9); Potassium, Blood 4.5 mmol/L (3.5-5.5); Sodium, Blood 140 mmol/L (136-145)
[2019-02-05 04:43] LABS: Anion Gap Unable to Calculate mmol/L (6-16); CO2, Blood >45 mmol/L (21-32)
--- NOTE | 2019-02-05 07:35 | NUR ---
SHIFT SUMMARY PATIENT PLEASENT AND COOPERATIVE THROUGHOUT THE NIGHT. PATIENT APPEARED TO SLEEP WELL THROUGHOUT THE NIGHT WITH NO COMPLAINTS OF PAIN OR DISCOMFORT. PATIENT USED BIPAP FOR MOST OF THE NIGHT WHILE SHE WAS ASLEEP. PATIENT CURRENTL AWAKE IN ROOM AND ON BIPAP. GRANDSON STAYED THE NIGHT AT THE BEDSIDE. PATIENT UP TO THE BSC WITH ONE ASSIST SEVERAL TIMES THROUGHOUT THE NIGHT. VITAL SIGNS CHARTED. REPORT GIVEN TO ONCOMING RN.
--- NOTE | 2019-02-05 07:48 | NUR ---
RECEIVED REPORT AND ASSUMED CARE OF PATIENT. SHE IS RESTING AND USING BIPAP AT THIS TIME. THE MASK IS LEAKING, REQUESTED FULL FACE MASK FROM RT, LEAK IS GREATLY IMPROVED AND PATIENT EXPRESSED CONTENTMENT. O2 SAT >92%, FIO2 30%, RR 20. WILL CONTINUE TO MONITOR. BED IN LOW POSITION, CALL LIGHT WITHIN EASY REACH.
--- NOTE | 2019-02-05 13:35 | NUR ---
PERMISSION FOR CARE Patient gave student permission to provide care on 02/06/19 from [phone].
--- NOTE | 2019-02-05 17:29 | NUR ---
PT HAD EPISODE OF HYPOGLYCEMIA, CBG AT 58, GAVE 8 OZ ORANGE JUICE AND A PIECE OF CHEESE. WILL RECHECK BLOOD SUGAR AT 1800.
--- NOTE | 2019-02-05 19:14 | NUR ---
PT HAD A GOOD DAY, SHE WAS UP WITH PT AND OT DURING THIS SHIFT. SHE WAS ABLE TO AMBULATE WITH THE WALKER AND GAIT BELT. PT ENCOURAGED HER TO WALK ACROSS THE ROOM TO USE THE BSC AND GET UP TO THE CHAIR MUCH POSSIBLE. PT IS HAVING EPISODES OF BRADYCARDIA DURING THIS SHIFT; ADDITIONALLY, PT CBG WAS LOW THIS EVENING. DECREASE URINE OUTPUT DURING SHIFT. PT UP TO BSC ONE TIME DURING THIS SHIFT WITH PT. PT CONTINUES TO USE 3 LPM NC WHEN OFF BIPAP, USING BIPAP WHEN SLEEPING AT FIO2 OF 30%. WILL GIVE REPORT TO ROLANDO ENGLISH.
[2019-02-06 04:28] LABS: BASOPHILS ABSOLUTE AUTO 0.02 K/mm3 (0.00-0.23); BASOPHILS PERCENT AUTO 0 % (0-2); EOSINOPHILS ABSOLUTE AUTO 0.09 K/mm3 (0.00-0.68); EOSINOPHILS PERCENT AUTO 1 % (0-6); Hematocrit 36.2 % (33.0-51.0); IMMATURE GRAN ABSOLUTE AUTO 0.02 K/mm3 (0.00-0.10); IMMATURE GRAN PERCENT AUTO 0 % (0-1); LYMPHOCYTES ABSOLUTE AUTO 0.92 K/mm3 (0.84-5.20); LYMPHOCYTES PERCENT AUTO 15 % (21-46); MONOCYTES ABSOLUTE AUTO 0.59 K/mm3 (0.16-1.47); MONOCYTES PERCENT AUTO 9 % (4-13); Mean Corpuscular HGB 27.8 pg (26.0-34.0); Mean Corpuscular HGB Conc 27.6 g/dL (31.5-36.5); Mean Platelet Volume 10.4 fL (9.1-12.4); NEUTROPHILS ABSOLUTE AUTO 4.63 K/mm3 (1.96-9.15); NEUTROPHILS PERCENT AUTO 74 % (41-73); Platelet Count 137 K/mm3 (150-400); RDW Coefficient Variation 15.1 % (11.7-14.2); RDW Standard Deviation 55.5 fL (35.1-46.3); White Blood Cell Count 6.27 K/mm3 (4.00-11.30)
[2019-02-06 04:30] LABS: Mean Corpuscular Volume 101 fL (80-100)
[2019-02-06 04:48] LABS: Albumin, Blood 2.6 g/dL (3.4-5.0); Blood Urea Nitrogen 37 mg/dL (8-24); Bun/Creatinine Ratio 34.6 (12.0-20.0); Calcium, Blood 8.9 mg/dL (8.5-10.1); Chloride, Blood 94 mmol/L (98-108); Creatinine, Blood 1.07 mg/dL (0.40-1.00); Glomerular Filtration Rate 54 (60-); Glucose, Blood 113 mg/dL (70-99); Phosphorus, Blood 3.7 mg/dL (2.5-4.9); Potassium, Blood 4.6 mmol/L (3.5-5.5); Sodium, Blood 137 mmol/L (136-145)
[2019-02-06 04:50] LABS: Anion Gap Unable to Calculate mmol/L (6-16); CO2, Blood >45 mmol/L (21-32)
--- NOTE | 2019-02-06 06:47 | NUR ---
PCU NOC SHIFT SUMMARY PATIENT ALERT AND ORIENTED X4. PATIENT ON BIPAP WITH FIO2 35% OR 2 LPM NC T/O SHIFT - PATIENT CO2 RETAINER DUE TO MORBID OBSESIDY. L/S WHEEZE TO COARSE, SHALLOW BREATHS WITH DECREASED AIR MOVEMENT. HR NSR IN THE 80'S. ABD HAS LARGE HERNIA NOTED THAT PATIENT STATES SHE HAS HAD FOR YEARS WITH REPAIR ATTEMPTS. DIFFUSE YEAST T/O GROIN AND ABD FOLDS - NYSTATIN PER EMAR. PATIENT DIABETIC WITH CBGS. CO2 REMAIN ELEVATED. PATIENT RESTFUL AND ON BIPAP FOR THE MAJORITY OF THE NIGHT. NO ACUTE CHANGES NOTED. WILL CONTINUE TO MONITOR AND GIVE REPORT TO DAYSHIFT RN.
--- NOTE | 2019-02-06 07:30 | NUR ---
AM Assessment: Pt resting in bed, just removed from bipap and placed on 2L NC. Tolerating well. VSS. Pt denies pain at this time. BT positive. Pulses palp. HR braydicardic in the 50's. Pt has BLE edema at 3+. LS diminished, coarse in the bases. Pt denies other needs at this time. WIll continue to monitor.
[2019-02-06 08:05] LABS: PCO2 Arterial 87 mmHg (35-45); PO2 Arterial 74.7 mmHg (80-100); pH Blood Arterial 7.35 (7.35-7.45)
--- NOTE | 2019-02-06 11:10 | NUR ---
update: Pt States that physician was in room and that she was going to be discharged on a bipap back to [facility], and that she needed a trilogy machine. Pt upset and calling her family, primarily her son-in-law, to figure out what was going on. Pt states "He is going to be pissed". Assured Pt she would not be discharged on something that was not effective, and that we would look into what was going on.
--- NOTE | 2019-02-06 14:25 | NUR ---
trilogy vs bipap on discharge: Pt Son in law states that he spoke with [facility] yesterday and that they agreed to accept a trilogy machine. [facility] states they need to get approval from "corporate" prior to accepting the trilogy machine. Explained to family that Pt is doing ok on the bipap and that she would be ok to be discharged on a bipap with the settings she has, per pulmonology and Primary care. Pt family feel that she is not doing better since her CO2 is slightly higher, and has been going up about 3-4 points a day over the last 2 days. PH is still WNL. Again assured them physicians would not discharge on a machine that was not working. Son in law also concerned about Coreg medication side effects and Pt not voiding as much as she was the past few days. Told family I would talk to physician about these concerns and call was made to physicain. Pt denies other needs at this time. WIll monitor.
[2019-02-06] MEDS ORDERED: LO-DOSE ASPIRIN81 MG PO (15:07)
[2019-02-06] MEDS ORDERED: HYDCHL12.5 PO (15:08)
[2019-02-06] MEDS ORDERED: LEVSOD50 PO (15:10)
[2019-02-06] MEDS ORDERED: XARELTO20 MG PO (15:11)
--- NOTE | 2019-02-06 16:30 | NUR ---
Update: Pt resting in recliner chair after working with PT/OT. Pt back on Bipap at this time. FIO2 at 30%. Delta update from [facility] center, and they are unable to accept trilagy machine. Pt and Pt family discouraged and trying to decide if they want her to go home with homehealth on trilogy, or back to [facility] with Bipap. Pt and family denie other needs at this time. Will monitor.
--- NOTE | 2019-02-06 18:03 | NUR ---
SHIFT SUMMARY: Pt sitting up in chair finishing dinner at this time with multiple family members in room with her. They are very frusterated and concerned that [facility] is not going to accept her with a trilogy machine and are asking why. Informed them I was not sure. PCU Clinical coordinator Roxanna in room talking with Pt and family. Pt has been in the bed for most of the day on 2L NC. This was the case because the mask (bipap) was not fitting comfortably, and she had multiple visitors. She has been on the Bipap for only about 2 hours this afternoon. Will encourage Bipap tonight. Pt is tolerating it much better since mask was changed. Biox has remained between 90-94% on bipap and on 2l nc. The plan was for Pt to be discharged to [facility] center today with bipap, but after concerns from family and some confusion with the type of Machine she should have, discharge has been delayed and will hopefully occur tomorrow. HR has remained 50-60's, Sinus Rhythm. Medicaion adjustment to Coreg was made per orders. Pt has voided a small amount of urine. Will bladder scan post void once in bed. Will report to night RN. Stable at this time.
[2019-02-07 03:36] LABS: BASOPHILS ABSOLUTE AUTO 0.02 K/mm3 (0.00-0.23); BASOPHILS PERCENT AUTO 0 % (0-2); EOSINOPHILS ABSOLUTE AUTO 0.07 K/mm3 (0.00-0.68); EOSINOPHILS PERCENT AUTO 1 % (0-6); Hematocrit 36.1 % (33.0-51.0); Hemoglobin 10.6 g/dL (11.5-16.0); IMMATURE GRAN ABSOLUTE AUTO 0.02 K/mm3 (0.00-0.10); IMMATURE GRAN PERCENT AUTO 0 % (0-1); LYMPHOCYTES ABSOLUTE AUTO 0.93 K/mm3 (0.84-5.20); LYMPHOCYTES PERCENT AUTO 16 % (21-46); MONOCYTES ABSOLUTE AUTO 0.47 K/mm3 (0.16-1.47); MONOCYTES PERCENT AUTO 8 % (4-13); Mean Corpuscular HGB 28.4 pg (26.0-34.0); Mean Corpuscular HGB Conc 29.4 g/dL (31.5-36.5); Mean Platelet Volume 10.5 fL (9.1-12.4); NEUTROPHILS ABSOLUTE AUTO 4.33 K/mm3 (1.96-9.15); NEUTROPHILS PERCENT AUTO 74 % (41-73); Platelet Count 115 K/mm3 (150-400); RDW Coefficient Variation 14.9 % (11.7-14.2); Red Blood Cell Count 3.73 M/mm3 (3.80-5.20); White Blood Cell Count 5.84 K/mm3 (4.00-11.30)
[2019-02-07 03:39] LABS: Mean Corpuscular Volume 97 fL (80-100)
[2019-02-07 03:50] LABS: Albumin, Blood 2.6 g/dL (3.4-5.0); Anion Gap 2 mmol/L (6-16); Blood Urea Nitrogen 40 mg/dL (8-24); Bun/Creatinine Ratio 37.4 (12.0-20.0); CO2, Blood 40 mmol/L (21-32); Calcium, Blood 8.8 mg/dL (8.5-10.1); Chloride, Blood 95 mmol/L (98-108); Creatinine, Blood 1.07 mg/dL (0.40-1.00); Glomerular Filtration Rate 54 (60-); Glucose, Blood 108 mg/dL (70-99); Sodium, Blood 137 mmol/L (136-145)
--- NOTE | 2019-02-07 06:52 | NUR ---
SHIFT SUMMARY PT SLEPT WELL DURING THE NIGHT, SHE WAS PLEASANT AND COOPERATIVE WITH VITALS AND ASSESSMENTS. PT DENIED ANY COMPLAINTS OF PAIN, WAS ABLE TO MAKE NEEDS KNOWN AND DENIED ANY UNMET NEEDS. PT VITALS WERE STABLE T/O SHIFT AND SHE HAD NO ACUTE CHANGES TO LOC OR MENTATION. PT USED HER CALL LIGHT APPROPRIATELY AND IT WAS LEFT WITHIN EASY REACH. SHE HAS 2X SIDE RAILS IN PLACE, BED IN LOW POSITION AND BED ALARM ACTIVE. SHE WILL CONTINUE TO BE MONITORED UNTIL HANDOFF TO DAYSHIFT RN.
--- NOTE | 2019-02-07 08:20 | NUR ---
ASSESSMENT: Pt resting in bed on bipap. VSS. LS diminished with some wheezing and some coarsness. Pt was take off bipap and placed on 2l nc. States that she slept well and is feeling pretty good. Up to [facility] then Chair for breakfast with 1 person assist. HR reg/bradycardic. BT positive. PUlses faint but palp. Edema to BLE. Pt has call light in reach. Denies other needs.
--- NOTE | 2019-02-07 11:05 | NUR ---
update: Dr. Guaman in room talking to Pt and son in law. States that he would really like Pt to be discharged on Trilogy machine and that she sould go wherever that is accepted (either home or facility). Pt and son voice appriciation and understanding. Pt denies needs at this time. Will monitor.
--- NOTE | 2019-02-07 18:18 | NUR ---
shift summary: Pt sitting up at edge of bed at this time visiting with family in room. Pt has done well this shift. She sat up in recliner chair until after lunch then went back to bed and napped on bipap for a little bit. Was able to work with both PT and OT. Tolerated therapy well. When she went back on the BIpap at about 1530 RT changed the setting to AVAPS settings per order. Pt tolerated these settings well. Pt VSS throughout shift. She has remained A/O throughout the shift. Plan for discharge to SNF on Tuesday in [place]. Their is a facility there that accepts Trilogy. No other changes at this time. Stable at end of shift. Will report to night RN.
--- NOTE | 2019-02-07 19:48 | NUR ---
PM NOTE. ASSUMED CARE OF PT APROX 1900, PT IS A&Ox4 AND SBA W/FWW IN THE ROOM, PT WAS ADMITTED DUE TO AMS AND HYPERCAPNIA, THIS HAS RESOLVED, PT IS WAITING ON SNF THAT WILL ACCECPT HER NEED FOR TRILOGY BIPAP FOR D/C. TELE INTACT, NSR/SB 40'S-60'S PER PRODUCE INSPECTOR, PT'S HR DROPS TO THE HIGH 40'S-50'S DURING SLEEP. PT'S BP 135/66, 3+ PITTING EDEMA NOTED TO THE PT'S BLLE UP TO HER THIGHS. PEDAL PULSES ARE PRESENT BUT FAINT AND THREADY. L/S COARSE T/O W/WHEEZES IN THE UPPER LOBES AND DIM IN THE BASES, PT IS ON 2L NC WITH SATS AT 94%. PT IS ABLE TO AMBULATE TO THE BATHROOM TO VOID W/FWW AND SBA. PT HAS YEASTY RASH UNDER HER SKIN FOLDS THAT IS BEING TREATED WITH NYSTATIN POWDER PER EMAR. PT IS C/O SEVERE LEFT WRIST PAIN THAT STARTED SUDDENTLY, PT STATES THAT SHE HAS NOT HAD THIS BEFORE BUT IT IS 8/10 SHARP ACHE. WILL MONITOR. CALL LIGHT IN REACH, BED IS LOCKED AND LOW WILL CONTINUE TO MONITOR.
--- NOTE | 2019-02-08 06:30 | NUR ---
SHIFT SUMMARY. NO ACUTE CHANGES NOTED THIS SHIFT, PT'S VS HAVE BEEN STABLE, NO EVENTS ON TELE. PT HAS USED THE BIPAP MOST OF THIS SHIFT. PT HAS BEEN UP W/FWW TO THE BATHROOM x2. PT C/O OF SEVERE LEFT WRIST PAIN THAT RADIATED FROM HER WRIST TO HER UPPER LEFT ARM, ASSESSMENT OF THE PT'S LEFT ARM SHOWED NO NEW FINDINGS FROM PREVIOUS ASSESSMENT, CAP REFILL WAS <3 SECONDS, NO REDNESS OR SWELLING WAS NOTED. PROVIDER WAS CALLED AND ORDERS OBTAINED FOR 1 TIME DOSE OF NAPROXEN, PT RESPONDED WELL TO THIS. CALL LIGHT IN REACH, BED IS LOCKED AND LOW WILL CONTINUE TO MONITOR UNTIL REPORT IS GIVEN TO ONCOMING RN.
--- NOTE | 2019-02-08 08:48 | NUR ---
Assumed Care: Assumed care of pt at approx 0700. VSS. In no apparent sign of distress. Pt is A&Ox4. Calls appropriately. Assists with repositioning. Pt states that she is overall feeling much better and is looking forward to DC to SNF on this Tuesday. Pt currently on 2L O2 NC. See shift assessment for detailed assessment. Currently resting in bed eating breakfast. Denies any further questions, complaints or requests at this time. Will continue to montior.
--- NOTE | 2019-02-08 16:25 | NUR ---
Shift Summary No acute changes since initial shift assessment. VSS. In no apparent sign of distress. Pt did have episode where she dipped down to the 30's on her HR while she was sleeping which lasted for approx 10sec and then resumed a HR in the 50's-60's. Asymptomatic of bradycardia at this time. Pt did well working with PT/OT today. Showered and tolerated that activity well. Pt has remained on 2L O2 NC t/o the shift while awake and has been placed on BiPAP w/ AVAP while sleeping. Pt denies any acute complaints or events t/o the shift. Plan is to wait for home trelogy machine to be delivered tomorrow, and then pt can transfer to medical floor while pending placement to SNF in [facility]. Pt currently resting in bed with call light within reach. Denies any further questions, complaints or requests at this time. Report given to Erin ENGLISH.
--- NOTE | 2019-02-08 18:17 | NUR ---
SHIFT SUMMARY ASSUMED CARE OF PT AT APPROX 1700 FROM NICOLE BERMAN RN. PT VSS, RESTING COMFORTABLY IN BED. PT DENIES SOB, CHEST PAIN, CHEST PRESSURE. PT IN NO APPARENT SIGNS OF DISTRESS. ON 2 L NC WITH O2 SAT 91%. FAMILY AT BEDSIDE AT THIS TIME. WILL CONTINUE TO MONITOR
--- NOTE | 2019-02-08 19:48 | NUR ---
PM NOTE. ASSUMED CARE OF PT APROX 1900, PT IS A&Ox4, NO NEW CHANGES PER BEDSIDE REPORT FROM RN OR PT. PT IS WAITING FOR NEW TRILOGY BIPAP SO SHE CAN STATUS CHANGE TO MEDICAL FLOOR OR TRANSFER TO SNF IN [place] ON Tuesday, WHICH EVER HAPPENS FIRST. TELE INTACT, NSR IN THE 60 W/PACS PER BRIM MOLDER, PT'S BP 145/93, 3+ EDEMA NOTED TO THE PT'S BLLE. PT'S L/S HAVE GREATLY IMPROVED FROM PREVIOUS ASSESSMENT, L/S CLEAR T/O BUT DIM IN THE BASES, NO WHEEZES OR COARSENESS NOTED THIS SHIFT, PT IS ON 2L NC AT 94%, RR 18 EVEN AND UNLABORED. BT PRESENT AND HYPOACTIVE, ABD IS SOFT AND NONTENDER TO PALP, LARGE UMBILLICAL HERNIA PRESENT, PT STATES THIS BECOMES TENDER AT TIMES BUT IS OKAY NOW. CALL LIGHT IN REACH, BED IS LOCKED AND LOW WILL CONTINUE TO MONITOR.
--- NOTE | 2019-02-08 22:08 | NUR ---
PT UPDATE... FAMILY AT PT'S BEDSIDE THIS EVENING, PT AND FAMILY HAD SEVERAL QUESTIONS AND ABOUT PT'S UPCOMING D/C TO SNF IN [place]. PT'S FAMILY WANTED TO BE INVOLVED IN PT'S D/C ESPECIALLY THE MEDICATIONS PT WAS GOING TO D/C ON. PT AND FAMILY WERE ALSO WANTING TO KNOW ABOUT PT'S APPOINTMENTS THAT WERE ALREADY MADE FOR NEXT THURSDAY 02/15. PT'S FAMILY STATED THEY WERE TOLD THAT THESE APPOINTMENTS HAD BEEN MADE BY ENGINEERING DRAWINGS CHECKER/CARE MANAGMENT FOR THE PT.
[2019-02-09 04:33] LABS: PO2 Arterial 87.3 mmHg (80-100); pH Blood Arterial 7.35 (7.35-7.45)
--- NOTE | 2019-02-09 05:56 | NUR ---
SHIFT SUMMARY. NO ACUTE CHANGES NOTED THIS SHIFT. PT'S VS HAVE BEEN STABLE, PT DENIES ANY CHEST PAIN/PRESSURE, N/V OR ABNORMAL SOB. PT'S LEFT WRIST/ARM DID NOT HURT TONIGHT LIKE IT DID LAST NOC SHIFT. PT HAS SLEPT WELL MOST OF THIS SHIFT AND HAS USED THE BIPAP ALL NIGHT. CALL LIGHT IN REACH, BED IS LOCKED AND LOW WILL CONTINUE TO MONITOR UNTIL REPORT IS GIVEN TO ONCOMING RN.
--- NOTE | 2019-02-09 11:10 | NUR ---
SHIFT NOTE ASSUMED CARE OF PT AT APPROX 0700. PT VSS WITH NO SIGN OF APPARENT DISTRESS. PT BREATHING EASY AND UNLABORED AT 1.5 L NC. SON, MARY, WITH PT AT BEDSIDE THIS AM. BOTH DON AND PT REPORT FEELING VERY HAPPY WITH THE PROGRESS THAN PT HAS MADE. PT BASELINE O2 IS 3L AND PT AND SON VERY HAPPY THAT PT IS TOLERATING O2 AT 1.5 L. PT SITTING AT THE EDGE OF BED WITH NO SIGNS OF DIZZYNESS OR FATIGUE. PT ENCOURAGED TO PARTICIPATE MUCH POSSIBLE WITH MOVEMENT/TRANSFER/AMBULATION SO NOT TO DECONDITION WHILE AT THE HOSPITAL. PT CALLS APPROPRIATELY AND VERBALIZES UNDERSTANDING AND COMPLIANCE WITH FALL PREVENTION PROTOCOL. RT IN THIS AM AND PT CURRENTLY ON BIPAP. AWAITING TRILIGY TO ARRIVE TO ROOM THIS AFTERNOON. PLAN PER DR KWAN IS TO DC TUESDAY TO SNF IN [place]. PLEASE SEE SHIFT ASSESSMENT FOR DETAILED ASSESSMENT. WILL CONTINUE TO MONITOR.
--- NOTE | 2019-02-09 16:48 | NUR ---
SHIFT SUMMARY NO ACUTE CHANGES THIS SHIFT. PT RESTING COMFORTABLY WITH LOTS OF FAMILY AT BEDSIDE. VSS. PT DENIES SOB, CP, CHEST PRESSURE, CALF TENDERNESS. PT ON 1.5L NC AND MAINTING SATURATIONS ABOVE 90%. STILL AWAITING TRILIGY APPROVAL THROUGH [facility]. PT STABLE WITH NO COMPLAINTS OR CONCERNS AT THIS TIME. THIS RN RECEIVED A CALL FROM SON-IN-LAW, MARY, WHO EXPRESSED FRUSTRATION REGARDING [facility]. DON STATED TO THIS RN "WHO'S CAGE DO I NEED TO RATTLE TO GET ANYTHING DONE HERE". THIS RN EXPRESSED COMPASSION AND UNDERSTANDING OF FRUSTRATION TO DON. THIS RN EXPRESSED THERAPEUTIC COMMUNICATION TO DON AND DON EXPRESSED APPRECIATION TO THIS RN. MARY ALSO WANTED TO SPEAK WITH CHARGE NURSE, CARLINE, ABOUT HIS FRUSTRATIONS. THIS RN PASSED THE CALL ALONG TO CHARGE NURSE, CARLINE. THIS RN WILL CONTINUE TO MONITOR AND UPDATE APPROPRIATE
--- NOTE | 2019-02-10 03:10 | NUR ---
ASSUMED CARE OF PATIENT AT APPROXIMATELY 1900 FROM DALTON Dowling RN. PATIENT ALERT AND ORIENTED X4; PATIENT VISITING WITH MULTIPLE FAMILY MEMBERS DURING SHIFT CHANGE; SITTING IN RECLINER. PATIENT IS ONE ASSIST WITH FWW TO BATHROOM. TRILOGY BREATHING MACHINE ARRIVED BEFORE SHIFT CHANGE; RT SET UP. SR ON TELE; OXYGEN SATURATION ABOVE 90% ON 1.5LPM VIA NC OR TRILOGY W/ 2LPM BLEED IN. PATIENT'S OXYGEN SATURATION DROPS TO 85% WHEN SHE FALLS ASLEEP OCCASIONALLY; QUICKLY RECOVERS. PATIENT WEAK; REPORTS N/T IN FEET CHRONIC. PATIENT DENIES PAIN, DIZZINESS AND NAUSEA. PIV S/L. APPLIANCE SERVICE TECHNICIAN DEXTER ASSISTING IN CARE. ATTENDS IN PLACE FOR INCONTINENCE. PATIENT CURRENTLY SLEEPING IN BED; CALL LIGHT IN REACH; BED IN LOWEST POSISITION; BED ALARM ON; WILL CONTINUE TO MONITOR AND ASSESS UNTIL END OF SHIFT.
[2019-02-10 04:07] LABS: BASOPHILS ABSOLUTE AUTO 0.02 K/mm3 (0.00-0.23); BASOPHILS PERCENT AUTO 0 % (0-2); EOSINOPHILS ABSOLUTE AUTO 0.03 K/mm3 (0.00-0.68); EOSINOPHILS PERCENT AUTO 0 % (0-6); Hemoglobin 10.2 g/dL (11.5-16.0); IMMATURE GRAN ABSOLUTE AUTO 0.03 K/mm3 (0.00-0.10); IMMATURE GRAN PERCENT AUTO 0 % (0-1); LYMPHOCYTES ABSOLUTE AUTO 1.02 K/mm3 (0.84-5.20); LYMPHOCYTES PERCENT AUTO 15 % (21-46); MONOCYTES ABSOLUTE AUTO 0.58 K/mm3 (0.16-1.47); MONOCYTES PERCENT AUTO 9 % (4-13); Mean Corpuscular HGB 27.8 pg (26.0-34.0); Mean Corpuscular HGB Conc 29.1 g/dL (31.5-36.5); Mean Corpuscular Volume 95 fL (80-100); Mean Platelet Volume 11.1 fL (9.1-12.4); NEUTROPHILS ABSOLUTE AUTO 5.15 K/mm3 (1.96-9.15); NEUTROPHILS PERCENT AUTO 76 % (41-73); Platelet Count 152 K/mm3 (150-400); RDW Coefficient Variation 15.4 % (11.7-14.2); RDW Standard Deviation 53.8 fL (35.1-46.3); Red Blood Cell Count 3.67 M/mm3 (3.80-5.20); White Blood Cell Count 6.83 K/mm3 (4.00-11.30)
[2019-02-10 04:26] LABS: Albumin, Blood 2.8 g/dL (3.4-5.0); Albumin/Globulin Ratio 0.6 (0.8-1.8); Bilirubin, Total 0.3 mg/dL (0.1-1.0); Bun/Creatinine Ratio 35.5 (12.0-20.0); Calcium, Blood 9.1 mg/dL (8.5-10.1); Creatinine, Blood 1.1 mg/dL (0.40-1.00); Globulin, Blood 4.7 g/dL (2.2-4.0); Potassium, Blood 4.3 mmol/L (3.5-5.5); Total Protein, Blood 7.5 g/dL (6.4-8.2)
--- NOTE | 2019-02-10 06:43 | NUR ---
PATIENT WORE TRILOGY MASK ABOUT FIVE HOURS LAST NIGHT; PATIENT REPORT "NEEDS GETTING USED TO". PATIENT SLEPT ABOUT FIVE HOURS LAST NIHGT. WILL CONTINUE TO MONITOR AND ASSESS UNTIL END OF SHIFT.
--- NOTE | 2019-02-10 12:09 | NUR ---
SHIFT NOTE ASSUMED CARE OF PT AT APPROX 0700. PT VSS AND IN NO APPARENT SIGN OF DISTRESS. PT REPORT LITTLE SLEEP LAST NIGHT. PT REPORT COMPLIANCE ON TRILOGY LAST NIGHT. PT OXYGEN STABLE IN THE 90S WITH 1.5L NC. PT DENIES SOB, CHEST PAIN, CHEST PRESSURE, OR CHANGES IN MENTATION. PT DENIES PAIN AT THIS TIME. PT SHOWERED THIS AM AND IS NOW RESTING COMFORTABLY IN RECLINER. UNABLE TO OBTAIN PT BARCODE FOR MORNING MEDICATIONS. COMPLETED ALL MEDICATION VERIFICATION METHODS AND FOLLOWED POLICY AND PROTOCOL FOR MANUAL BARCODE ENTRY. EDUCATED PT ON MEDICATIONS, SPECIFICALLY ANSWERED QUESTIONS REGARDING PREDNISONE PT STATES SHE DOES NOT TAKE THIS MEDICATION AT HOME. LUNGS CLEAR THROUGHOUT. CONDUCTED SKIN ASSESSMENT AND NOTED IRRITATION UNDER SKIN FOLDS ON ABDOMEN AND UNDER R ARMPIT. NYSTATIN AND CREAM APPLIED AND PT VERBALIZED RELIEF. FAMILY TO BE IN AGAIN TODAY. WILL CONTINUE TO MONITOR AND UPDATE APPROPRIATE. SEE SHIFT ASSESSMENT FOR DETAILED ASSESSMENT.
--- NOTE | 2019-02-10 17:11 | NUR ---
SHIFT SUMMARY NO ACUTE CHANGES THIS SHIFT. VSS AND PT WITH COMPLAINTS OR CONCERNS AT THIS TIME. PT BREATHING EASY AND UNLABORED WO C/O SOB, CHEST PAIN, CHEST PRESSURE. PT STATES THAT SHE FEELS LESS CHRISTIANSON. PT WITH FAMILY ON AND OFF AT BEDSIDE VISITING THROUGHOUT THE DAY. PT RELAXED AND PLAN IS TO CONTINUE TO KEEP HER IN PCU UNTIL PROBABLE DISCHARGE ON 02/12/19 TO SNF IN [place] WITH TRILOGY FROM [facility]. CBG AND INSULIN DC D/T PT GLUCOSE STABLE AND BASELINE IS DM MANAGED BY DIET. PT COMPLIANT WITH ADA DIET AT HOME AND MANAGES DM WELL. PT NAPPED ON AN OFF THROUGHOUT THIS SHIFT. WILL CONTINUE TO MONITOR AND UPDATE APPROPRIATE.
--- NOTE | 2019-02-10 22:14 | NUR ---
ASSUMED CARE OF PATIENT AT APPROXIMATELY 1910 FROM DALTON Dowling RN. PATIENT ALERT AND ORIENTED X4; PATIENT VISITING WITH MULTIPLE FAMILY MEMBERS DURING SHIFT CHANGE; PATIENT SITTING IN RECLINER. PATIENT IS ONE ASSIST WITH FWW TO BATHROOM. SB ON TELE; OXYGEN SATURATION ABOVE 90% ON 1.5-2 LPM VIA NC (INCREASE W/ AMBULATION) OR TRILOGY W/ 2LPM BLEED IN. PATIENT WEAK; REPORTS N/T IN FEET CHRONIC. PATIENT DENIES PAIN, DIZZINESS AND NAUSEA. PIV S/L. QUALITY ASSURANCE MANAGER DEXTER ASSISTING IN CARE. ATTENDS IN PLACE FOR INCONTINENCE. PATIENT CURRENTLY RESTING IN RECLINER; CALL LIGHT IN REACH; BED IN LOWEST POSISITION; BED ALARM ON; WILL CONTINUE TO MONITOR AND ASSESS UNTIL END OF SHIFT.
--- NOTE | 2019-02-11 04:25 | NUR ---
PATIENT SLEPT ABOUT SEVEN HOURS LAST NIGHT; REPORTS SLEPT BETTER TONIGHT COMPARED TO LAST NIGHT; WORE TRILOGY ABOUT SIX HOURS LAST NIGHT. NO OTHER ACUTE CHANGES TO REPORT. WILL CONTINUE TO MONITOR AND ASSESS UNTIL END OF SHIFT.
[2019-02-11 04:30] LABS: Albumin, Blood 2.8 g/dL (3.4-5.0); Anion Gap 2 mmol/L (6-16); Blood Urea Nitrogen 37 mg/dL (8-24); Bun/Creatinine Ratio 37.5 (12.0-20.0); CO2, Blood 39 mmol/L (21-32); Chloride, Blood 96 mmol/L (98-108); Creatinine, Blood 0.99 mg/dL (0.40-1.00); Glomerular Filtration Rate 59 (60-); Glucose, Blood 121 mg/dL (70-99); Potassium, Blood 4.3 mmol/L (3.5-5.5); Sodium, Blood 137 mmol/L (136-145)
--- NOTE | 2019-02-11 07:36 | NUR ---
Assumed Care: Assumed care of pt at approx 0700. VSS. In no apparent sign of distress. Pt is A&Ox4 and denies any pain at this time. See shift assessment for detailed assessment. Switched from Trilogy to 2L O2 NC this AM. Denies any SOB at rest. Pt states that she is just excited to hold a small birthday libertarian today for her daughter in her room and is excited for potential DC tomorrow. Denies any acute complaints or events this AM. Currently resting in bed with call light within reach. Denies any further questions, complaints or requests at this time. Will continue to monitor.
--- NOTE | 2019-02-11 08:15 | NUR ---
Update: Dr. Panda at bedside this AM. Requesting that pt is set up with IS and flutter valve - done. Provided pt with both and educated on use. Pt currently demostrating proper use of both.
--- NOTE | 2019-02-11 16:14 | NUR ---
Shift Summary No acute changes since initial shift assessment. VSS. In no apparent sign of distress. Pt is A&Ox4. Pt has remained on 1.5-3L O2 NC t/o most of the shift and is currently on trilogy bipap while resting/sleeping. Pt denies any SOB t/o the shift. While pt was taking a nap recently, HR dropped to the mid 40's, but increased to the 60's once woken up. SBA. Repositions self. Denies any pain t/o the shift. Plan is to DC to SNF in [place] tomorrow. Pt denies any acute complaints/events t/o the shift. Pt has overall had an uneventful/unremarkable day. Currently resting in bed with call light within reach. Denies any further questions, complaints or requests at this time. Will continue to montior until report is given to immanuel ENGLISH.
--- NOTE | 2019-02-11 23:49 | NUR ---
ASSUMED CARE OF PATIENT AT APPROXIMATELY 1910 FROM NICOLE Cabrera RN. PATIENT ALERT AND ORIENTED X4; PATIENT VISITING WITH MULTIPLE FAMILY MEMBERS DURING SHIFT CHANGE; PATIENT SITTING AT BEDSIDE FINISHING DINNER. PATIENT REPORTED TO SEEDLING SORTER DEXTER Rollins THAT FAMILY MEMBERS WERE ARGUING ABOUT HER BEING DISCHARGED TOMORROW HOME W/ HOME HEALTH. PATIENT REPORTED SHE IS NO LONGER GOING TO THE SNF IN [place]; ONE OF THE FAMILY MEMBERS REPORTED THAT HE PERSONALLY NOTIFIED DISHCARGE PLANNERS. PATIENT IS ONE ASSIST WITH FWW TO BATHROOM. SB ON TELE; OXYGEN SATURATION ABOVE 90% ON 1.5-2 LPM VIA NC (INCREASE W/ AMBULATION) OR TRILOGY W/ 2LPM BLEED IN. PATIENT WEAK; REPORTS N/T IN FEET CHRONIC. PATIENT DENIES PAIN, DIZZINESS AND NAUSEA. PIV S/L. SEEDLING SORTER DEXTER ASSISTING IN CARE. ATTENDS IN PLACE FOR INCONTINENCE. PATIENT CURRENTLY RESTING IN RECLINER; CALL LIGHT IN REACH; BED IN LOWEST POSISITION; BED ALARM ON; WILL CONTINUE TO MONITOR AND ASSESS UNTIL END OF SHIFT.
--- NOTE | 2019-02-12 00:12 | NUR ---
WHILE GETTING MIDNIGHT VITALS PT STATED SHE WAS NOT SURPRISED HER BP WAS ELEVATED BECAUSE FAMILY WAS ARGUING ABOUT DISCHARGE DECISIONS; HOME HEALTH VS SNF. PT STATES SHE WANTS TO BE HOME AND FEELS SHE CAN MAKE THE NECESSARY ADJUSTMENTS TO IMPROVE. WHEN MAKING ADJUSTMENTS IN ROOM PT EXPRESSED FURTHER FEELINGS AND STATED SHE FELT BETTER ABOUT HER DECISION AND WAS READY TO GO TO SLEEP.
--- NOTE | 2019-02-12 06:45 | NUR ---
PATIENT SLEPT ABOUT SIX HOURS WITH TRILOGY; NO COMPLAINTS; PATIENT IS READY TO GO HOME. WILL CONTINUE TO MONITOR AND ASSESS UNTIL END OF SHIFT.
--- NOTE | 2019-02-12 08:15 | NUR ---
ASSUMED CARE OF PT AT 0700. PT SITTING IN BED. ALERT AND ORIENTED. SEEN BY PMD ABOUT DISCHARGE LATER TODAY. PT HAD NO FURTHER QUESTIONS BUT STATED FAMILY WOULD. PT REPORTED GOING HOME WITH FAMILY. PT NEEDS A NEBULIZER. PT HAD DIMINISHED BASES. ON TELE NORMAL SINUS RHYTHM RATE 83. REDNESS UNDER R BREAST. NYASTATIN POWDER APPLIED. PT DENIES ANY PAIN OR SOB. WILL CONTINUE TO MONITOR. CALL LIGHT WITHIN REACH.
--- NOTE | 2019-02-12 11:39 | NUR ---
DISCHARGE NOTE CALLED PMD TO CONFIRM DISCHARGE D/O. MEDICATIONS CALLED INTO [facility]. PT AND FAMILY WERE EDUCATED ON MEDICATION LIST AND GIVEN FOLLOW UP APPT DATES. HOME O2 ELAVUATION COMPLETE. D/C RIGHT PERIPHERAL IV. WILL MONITOR UNTIL DISCHARGE.
--- NOTE | 2019-02-12 13:54 | NUR ---
Pt son asking for assitance with advance care planning. Review of AD, ramirez and POA and plan. [id number] him with AD and copy of will from [facility] website. AND check sheet from [facility]
== END 2019-02-12 13:43 | disposition home or self-care (01) | DRG 205 ==
LOC: ER 23:13 → ICUW 02-02 00:45 → PCU 02-02 14:04
PROVIDERS: Emergency Medicine; Family Medicine; Hospitalist; Internal Medicine Critical Care Medicine; Internal Medicine Pulmonary Disease; ADMIT Family Medicine
PROC: 5A09557 Assistance with Respiratory Ventilation, Greater than 96 Consecutive Hours, Continuous Positive Airway Pressure (ICD-10-PCS; principal; 2019-02-02)
DX: E66.2 Morbid (severe) obesity with alveolar hypoventilation (principal); J96.21 Acute and chronic respiratory failure with hypoxia; I63.9 Cerebral infarction, unspecified; J96.22 Acute and chronic respiratory failure with hypercapnia; G93.40 Encephalopathy, unspecified; Z68.44 Body mass index [BMI] 60.0-69.9, adult; I48.0 Paroxysmal atrial fibrillation; Z79.01 Long term (current) use of anticoagulants; E03.9 Hypothyroidism, unspecified; G47.33 Obstructive sleep apnea (adult) (pediatric); E11.9 Type 2 diabetes mellitus without complications; Z79.4 Long term (current) use of insulin; Z99.81 Dependence on supplemental oxygen; I12.9 Hypertensive chronic kidney disease with stage 1 through stage 4 chronic kidney disease, or unspecified chronic kidney disease; E11.22 Type 2 diabetes mellitus with diabetic chronic kidney disease; N18.3 Chronic kidney disease, stage 3 (moderate); G25.81 Restless legs syndrome; F41.9 Anxiety disorder, unspecified; R00.1 Bradycardia, unspecified; I27.81 Cor pulmonale (chronic); J98.6 Disorders of diaphragm; I11.0 Hypertensive heart disease with heart failure; I50.9 Heart failure, unspecified; M10.9 Gout, unspecified
CPT/HCPCS: 36415; 36600; 51702; 70450; 71045; 80048; 80053; 80069; 82803; 82947; 83605; 83880; 84145; 84443; 84484; 84550; 85025; 85610; 87040; 93005; 93010; 93306; 94640; 94660; 94667; 94761; 94762; 96365-59; 96366-59; 97110; 97116; 97162; 97167; 97530; 97535; 98960; 99285-25; J0692; J1650; J1815; J1940; J2543; J2930; J3370; J7030; J7050; J7512

== ENCOUNTER 2019-03-13 17:18 | Inpatient (IN) | payer MEDICARE, OTHER ==
[~2019-03-13] VITALS: Ht 152.4 cm; Wt 149.6 kg
[~2019-03-13 17:18] MED LIST changes: +ALBU2.5V5 INH; -ALBU2.5V5 NEB; +HYDCHL12.5 PO; +LEVSOD50 PO; +LO-DOSE ASPIRIN81 MG PO; +Mirapex1 MG PO; +XARELTO20 MG PO
[2019-03-13 18:21] LABS: BASOPHILS ABSOLUTE AUTO 0.02 K/mm3 (0.00-0.23); BASOPHILS PERCENT AUTO 0 % (0-2); EOSINOPHILS ABSOLUTE AUTO 0.04 K/mm3 (0.00-0.68); EOSINOPHILS PERCENT AUTO 1 % (0-6); Hematocrit 36.2 % (33.0-51.0); Hemoglobin 10.4 g/dL (11.5-16.0); IMMATURE GRAN ABSOLUTE AUTO 0.03 K/mm3 (0.00-0.10); IMMATURE GRAN PERCENT AUTO 0 % (0-1); LYMPHOCYTES ABSOLUTE AUTO 0.85 K/mm3 (0.84-5.20); LYMPHOCYTES PERCENT AUTO 12 % (21-46); MONOCYTES ABSOLUTE AUTO 0.53 K/mm3 (0.16-1.47); MONOCYTES PERCENT AUTO 8 % (4-13); Mean Corpuscular HGB 28.7 pg (26.0-34.0); Mean Corpuscular HGB Conc 28.7 g/dL (31.5-36.5); Mean Corpuscular Volume 100 fL (80-100); Mean Platelet Volume 10.1 fL (9.1-12.4); NEUTROPHILS ABSOLUTE AUTO 5.54 K/mm3 (1.96-9.15); NEUTROPHILS PERCENT AUTO 79 % (41-73); Platelet Count 197 K/mm3 (150-400); RDW Standard Deviation 55.7 fL (35.1-46.3); Red Blood Cell Count 3.63 M/mm3 (3.80-5.20); White Blood Cell Count 7.01 K/mm3 (4.00-11.30)
[2019-03-13 18:51] LABS: Albumin, Blood 3.3 g/dL (3.4-5.0); Albumin/Globulin Ratio 0.7 (0.8-1.8); Bilirubin, Total 0.3 mg/dL (0.1-1.0); Bun/Creatinine Ratio 40.6 (12.0-20.0); Calcium, Blood 9.2 mg/dL (8.5-10.1); Creatinine, Blood 1.01 mg/dL (0.40-1.00); Globulin, Blood 4.8 g/dL (2.2-4.0); Potassium, Blood 4.8 mmol/L (3.5-5.5); Total Protein, Blood 8.1 g/dL (6.4-8.2)
[2019-03-13 18:57] LABS: PO2 Arterial 69.5 mmHg (80-100)
[2019-03-13 18:58] LABS: PCO2 Arterial 72.7 mmHg (35-45); pH Blood Arterial 7.28 (7.35-7.45)
[2019-03-13] MEDS ORDERED: XARELTO15 MG PO (20:36)
[2019-03-14 04:05] LABS: Adenovirus Not Detected (NOT DETECT); Bordetella pertussis Not Detected (NOT DETECT); Chlamydophila pneumoniae Not Detected (NOT DETECT); Coronavirus 229E Not Detected (NOT DETECT); Coronavirus HKU1 Not Detected (NOT DETECT); Coronavirus NL63 Not Detected (NOT DETECT); Coronavirus OC43 Not Detected (NOT DETECT); Human Metapneumovirus Not Detected (NOT DETECT); Human Rhinovirus/Enterovirus Not Detected (NOT DETECT); Influenza A Not Detected (NOT DETECT); Influenza A/2009-H1 Not Detected (NOT DETECT); Influenza A/H1 Not Detected (NOT DETECT); Influenza A/H3 Not Detected (NOT DETECT); Influenza B Not Detected (NOT DETECT); Mycoplasma pneumoniae Not Detected (NOT DETECT); Parainfluenza Virus 1 Not Detected (NOT DETECT); Parainfluenza Virus 2 Not Detected (NOT DETECT); Parainfluenza Virus 3 Not Detected (NOT DETECT); Parainfluenza Virus 4 Not Detected (NOT DETECT); Respiratory Syncytial Virus Not Detected (NOT DETECT)
[2019-03-14 04:31] LABS: Hematocrit 34.8 % (33.0-51.0); Hemoglobin 10.1 g/dL (11.5-16.0); Mean Corpuscular HGB 28.1 pg (26.0-34.0); Mean Platelet Volume 9.9 fL (9.1-12.4); Platelet Count 174 K/mm3 (150-400); RDW Standard Deviation 53.1 fL (35.1-46.3); White Blood Cell Count 5.88 K/mm3 (4.00-11.30)
[2019-03-14 04:33] LABS: Mean Corpuscular Volume 97 fL (80-100)
[2019-03-14 04:49] LABS: Albumin, Blood 2.9 g/dL (3.4-5.0); Albumin/Globulin Ratio 0.6 (0.8-1.8); Bilirubin, Total 0.2 mg/dL (0.1-1.0); Bun/Creatinine Ratio 39.9 (12.0-20.0); Calcium, Blood 9.1 mg/dL (8.5-10.1); Creatinine, Blood 0.98 mg/dL (0.40-1.00); Globulin, Blood 4.7 g/dL (2.2-4.0); Potassium, Blood 5.3 mmol/L (3.5-5.5); Total Protein, Blood 7.6 g/dL (6.4-8.2)
[2019-03-14 05:13] LABS: PO2 Arterial 79.1 mmHg (80-100); pH Blood Arterial 7.33 (7.35-7.45)
--- NOTE | 2019-03-14 05:31 | NUR ---
SHIFT SUMMARY PATIENT ADMITTED TO PCU AT 0045, ALERT AND ORIENTED. PATIENT REMAINED STABLE THROUGHOUT THE SHIFT, NSR WITH PAC HEART RATE AT 60'S, BIPAP 22/8 WITH FI02 AT 35%. BED LOCK, ON LOW POSITION, AND CALL LIF WITHIN REACH.
--- NOTE | 2019-03-14 07:55 | NUR ---
AM ASSESSMENT: Pt resting in bed. SOB with any activity. LS diminished. HR reg. BT positive. Pt denies pain. States that she does get SOB with any activity. Pt just removed from bipap, now on 4L N/C and is tolerating well. VSS. Call light in reach. Denies other needs at this time. Will continue to monitor.
--- NOTE | 2019-03-14 19:40 | NUR ---
shift summary: Pt has done well this shift. Was able to get up to recliner chair this am and has remained in the recliner throughout shift. States that she is very comfortable here. Pt was able to take a nap between breakfast and lunch with BIPAP in place and tolerated well. States that this helped her feel alittle better. Pt states that she does not think that she is back to baseline but feels better then she did when she came in. VSS throughout shift. BIox has remained at about 92%-94% on 4L NC when off of bipap. Pt has been off since about lunch time. No other changes. Pt stable at the end of shift. Report given to night RN and care transfered.
--- NOTE | 2019-03-15 05:05 | NUR ---
SHIFT SUMMARY: PATEINT USED BIPAP MOST OF SHIFT, NO ISSUES NOTED, CALL LIGHT WITHIN REACH, VSS, BED LOW AND LOCKED
--- NOTE | 2019-03-15 08:43 | NUR ---
INITIAL ASSESSMENT: PT SITTING UP ON THE EDGE OF THE BED, SHE JUST GOT DONE EATING BREAKFAST. PT IS ALERT AND OXE. PT DENIES PAIN. HRR. LS DIM IN THE BASES, BIOX WNL ON 4L VIA NC. OXYGEN TITRATED DOWN TO 3L VIA NC, WILL REASSESS. BT+. PT IS MORBIDLY OBESE, HAS LARGE HERNIA ON HER RIGHT ABD, PT STATES IS CHRONIC. PT DENIES TENDERNESS TO LIGHT ABD PALPATION. PPP. PT HAS CHRONIC LYMPH EDEMA TO BLE, EDEMA 3+ PITTING. PT ASSISTED TO [facility] WITH FWW. PT WAS ABLE TO VOID AND HAVE BM. PT IS BACK TO BED. AM MEDS GIVEN WHOLE WITH WATER WITHOUT DIFFICULTY. VSS. PT DENIES OTHER NEEDS AT THIS TIME. CALL LIGHT IN REACH, WILL CONTINUE TO MONITOR.
--- NOTE | 2019-03-15 09:30 | NUR ---
REPORT GIVEN TO JULIA ENGLISH TO ASSUME CARE.
--- NOTE | 2019-03-15 18:38 | NUR ---
NO ACUTE CHANGES NOTED. PATIENT DOING WELL. PATIENT TO WEAR HOME CPAP TONIGHT. NO COMPLAINTS OF PAIN OR DISCOMFORT NOTED. WILL CONTINUE TO MONITOR FOR CHANGES.
--- NOTE | 2019-03-15 20:33 | NUR ---
CONVERTED FROM NSR TO AFIB NOTIFIED CLIPPER MACHINE SARI AND PROVIDER SINPU - MEDICATION ORDERS GIVEN X2. ALSO RECIEVE ORDER FOR PATIENTS YEAST IN FOLDS. PATIENT STABLE AT THIS TIME AND DENIESA ANY NEEDS OR CONCERNS. FAMILY UPDATE PER PATIENT.
[2019-03-16 04:07] LABS: Hematocrit 34.8 % (33.0-51.0); Hemoglobin 10.1 g/dL (11.5-16.0); Mean Corpuscular HGB 27.5 pg (26.0-34.0); Mean Corpuscular Volume 95 fL (80-100); Mean Platelet Volume 9.9 fL (9.1-12.4); Platelet Count 227 K/mm3 (150-400); RDW Coefficient Variation 15.3 % (11.7-14.2); RDW Standard Deviation 53.5 fL (35.1-46.3); Red Blood Cell Count 3.67 M/mm3 (3.80-5.20); White Blood Cell Count 10.71 K/mm3 (4.00-11.30)
[2019-03-16 04:19] LABS: PO2 Arterial 60.9 mmHg (80-100); pH Blood Arterial 7.38 (7.35-7.45)
[2019-03-16 04:28] LABS: Bun/Creatinine Ratio 49.5 (12.0-20.0); Calcium, Blood 9.2 mg/dL (8.5-10.1); Creatinine, Blood 1.09 mg/dL (0.40-1.00); Potassium, Blood 4.7 mmol/L (3.5-5.5)
--- NOTE | 2019-03-16 05:59 | NUR ---
CONVERTED TO SINUS PILAR/NORMAL SINUS FROM AFIB CARDIEZEM STOPPED
--- NOTE | 2019-03-16 06:01 | NUR ---
PCU NOC SHIFT SUMMARY PATIENT ALERT AND ORIENTED X4 T/O SHIFT. PATIENT HAS CHRONIC COPD WITH HX OF RESPIRORY FAILURE AND FLUID OVERLOAD. PATIENT IS NONCOMPLINAT WITH DIET AND FLUID BALANCE. - PATIENT EDUCATED ON LIFESTYLE CHANGES TO REDUCE HER SOB AND OBESIDY. PATIENT HAS YEAST IN ABD AND BREAST FOLDS - NYSTATIN GIVEN PER EMAR. PATIENT USES CALL LIGHT APPROPRIATELY. PATIENT GIVEN BED BATH LAST NIGHT. NO ACUTE CHANGES T/O SHIFT. WILL CONTINUE TO MONITOR AND GIVE REPORT TO DAYSHIFT RN. CALL LIGHT W/I REACH.
--- NOTE | 2019-03-16 08:00 | NUR ---
PT SITTING UP ON SIDE OF BED EATING BREAKFAST, A/OX3, PLEASANT AND COOPERATIVE WITH CARE, FOLLOWS COMMANDS WELL, DENIES ANY PAIN, JUST ALWAYS SOB. SHE IS A HOME O2 DEPENDENT ON 2 LITERS, LUNGS ARE DIM IN BASES, OCC WHEEZING T/O, SATS IN THE LOW 90'S ON 3 LITERS, RESP EVEN AND UNLABORED, NO COUGH NOTED, HRR, TELE IN PLACE RUNNING SR PER MONITOR, SEE STRIP, 3+ EDEMA NOTED TO B/L LE, PPP FAINT, SHE REPORTS THAT THE EDEMA IS CHRONIC, IV SITE IS CLEAR AND PATENT, S.L, BTX4, REPORTS VOIDING AND MOVING HER BOWELS WITHOUT DIFF, HAS A YEAST RASH, AND A SMALL SORE TO ABDSTEFANIE, LUIS ALFREDO, UP TO BR WITHOUT DIFF, LUIS ALFREDO, CALL LIGHT IN REACH.
[2019-03-16] MEDS ORDERED: SPIR25 PO (11:31)
--- NOTE | 2019-03-16 12:40 | NUR ---
PT DECIDED SHE WOULD LIKE TO GO HOME TODAY, DR. PETTIT WROTE DISCHARGE ORDERS. STUDENT RN WENT OVER HER INSTRUCTIONS AND CALLED IN NEW MEDS FOR HER, SHE VERBALIZED UNDERSTANDING, IV REMOVED INTACT, HAS ALL HER PERSONAL BELONGINGS, LEFT VIA WHEELCHAIR WITH ARTIFICIAL BREEDING DISTRIBUTOR IN ATTENDENCE.
== END 2019-03-16 12:47 | disposition home or self-care (01) | DRG 189 ==
LOC: ER 17:18 → ERHOLD 17:19 → PCU 17:19
PROVIDERS: Emergency Medicine; Internal Medicine; Internal Medicine Critical Care Medicine; ADMIT Internal Medicine
PROC: 5A09457 Assistance with Respiratory Ventilation, 24-96 Consecutive Hours, Continuous Positive Airway Pressure (ICD-10-PCS; principal; 2019-03-14)
DX: J96.21 Acute and chronic respiratory failure with hypoxia (principal); E66.2 Morbid (severe) obesity with alveolar hypoventilation; J44.1 Chronic obstructive pulmonary disease with (acute) exacerbation; I13.0 Hypertensive heart and chronic kidney disease with heart failure and stage 1 through stage 4 chronic kidney disease, or unspecified chronic kidney disease; I50.32 Chronic diastolic (congestive) heart failure; Z68.43 Body mass index [BMI] 50.0-59.9, adult; E87.2 Acidosis; J96.22 Acute and chronic respiratory failure with hypercapnia; G47.33 Obstructive sleep apnea (adult) (pediatric); I27.81 Cor pulmonale (chronic); N18.3 Chronic kidney disease, stage 3 (moderate); E11.22 Type 2 diabetes mellitus with diabetic chronic kidney disease; G25.81 Restless legs syndrome; Z86.73 Personal history of transient ischemic attack (TIA), and cerebral infarction without residual deficits; I27.20 Pulmonary hypertension, unspecified; J98.6 Disorders of diaphragm; Z99.81 Dependence on supplemental oxygen; K46.9 Unspecified abdominal hernia without obstruction or gangrene; F41.9 Anxiety disorder, unspecified
CPT/HCPCS: 36415; 36600; 71046; 80048; 80053; 82803; 83880; 84484; 85025; 85027; 87486; 87581; 87633; 87798; 93005; 93010; 94640; 94660; 94762; 96374; 96375; 96376; 99285-25; G0378; J0360; J1940; J2930

== ENCOUNTER 2019-03-20 17:22 | Inpatient (IN) | payer MEDICARE, OTHER ==
[~2019-03-20] VITALS: Ht 157.5 cm; Wt 137.9 kg
[~2019-03-20 17:22] MED LIST changes: +SPIR25 PO; +XARELTO15 MG PO
[2019-03-20 17:56] LABS: BASOPHILS ABSOLUTE AUTO 0.03 K/mm3 (0.00-0.23); BASOPHILS PERCENT AUTO 0 % (0-2); EOSINOPHILS ABSOLUTE AUTO 0.07 K/mm3 (0.00-0.68); EOSINOPHILS PERCENT AUTO 1 % (0-6); Hematocrit 39.3 % (33.0-51.0); Hemoglobin 11.5 g/dL (11.5-16.0); IMMATURE GRAN ABSOLUTE AUTO 0.04 K/mm3 (0.00-0.10); IMMATURE GRAN PERCENT AUTO 0 % (0-1); LYMPHOCYTES ABSOLUTE AUTO 1.31 K/mm3 (0.84-5.20); LYMPHOCYTES PERCENT AUTO 13 % (21-46); MONOCYTES ABSOLUTE AUTO 0.68 K/mm3 (0.16-1.47); MONOCYTES PERCENT AUTO 7 % (4-13); Mean Corpuscular HGB 28.2 pg (26.0-34.0); Mean Corpuscular HGB Conc 29.3 g/dL (31.5-36.5); Mean Corpuscular Volume 96 fL (80-100); NEUTROPHILS ABSOLUTE AUTO 7.85 K/mm3 (1.96-9.15); NEUTROPHILS PERCENT AUTO 79 % (41-73); Platelet Count 227 K/mm3 (150-400); RDW Coefficient Variation 14.7 % (11.7-14.2); RDW Standard Deviation 52.2 fL (35.1-46.3); Red Blood Cell Count 4.08 M/mm3 (3.80-5.20); White Blood Cell Count 9.98 K/mm3 (4.00-11.30)
[2019-03-20 18:09] LABS: International Normalized Ratio 1.01; Prothrombin Time Results 10.7 Sec (9.7-11.5)
[2019-03-20 18:12] LABS: Alanine Aminotransfer (ALT/SGP 20 U/L (12-78); Albumin, Blood 3.2 g/dL (3.4-5.0); Albumin/Globulin Ratio 0.6 (0.8-1.8); Alk Phos 96 U/L (50-136); Anion Gap 3 mmol/L (6-16); Aspartate Aminotrans (AST/SGOT 14 U/L (12-37); Bilirubin, Total 0.4 mg/dL (0.1-1.0); Blood Urea Nitrogen 40 mg/dL (8-24); Bun/Creatinine Ratio 41.6 (12.0-20.0); CO2, Blood 37 mmol/L (21-32); Calcium, Blood 9.4 mg/dL (8.5-10.1); Chloride, Blood 97 mmol/L (98-108); Creatinine, Blood 0.96 mg/dL (0.40-1.00); Globulin, Blood 5.1 g/dL (2.2-4.0); Glomerular Filtration Rate >60 (60-); Glucose, Blood 113 mg/dL (70-99); Potassium, Blood 4.8 mmol/L (3.5-5.5); Sodium, Blood 137 mmol/L (136-145); Total Protein, Blood 8.3 g/dL (6.4-8.2); Troponin I <0.015 ng/mL (0.000-0.040)
--- NOTE | 2019-03-21 04:04 | NUR ---
ARRIVAL PT ARRIVE TO UNIT APPROX. 2214 VIA GURNERY FROM ED. PT ABLE TO TRANFER FROM GURNERY TO BED W/ SBA. PT DENIES ANY DIZZINESS OR FEELING LIGHTHEADED WITH THIS. ORIENTED PT TO ROOM, UNIT AND POLICIES. ADMISSION PROCESS COMPLETED. ASSESSMENT COMPLETED. PT ON 3L OXYGEN VIA N.C. WITH SATS IN 90'S. PT HEART RHYTHM A. FIB. AVERAGING 120'S AT THIS TIME. BLE +3 EDEMA. PT REPORT THIS TO HAVE INCREASED RECENTLY. FAMILY AT BEDSIDE. APPROX. 23:22. PT CONVERTED FROM A. FIB TO NSR WITH HEART RATE IN 60'S. BED IN LOW POSITION, CALL LIGHT IN REACH AND PT DENIES ANY NEEDS AT THIS TIME.
--- NOTE | 2019-03-21 06:50 | NUR ---
SHIFT SUMMARY PT PLEASANT, COOPERATIVE AND USES CALL LIGHT APPROPRIATELY. ASSESSMENT FINDINGS REMAIN UNCAHNGED. VITALS SIGNS STABLE. HEART RHTYHM HAS REMAINED NORMAL SINUS RHYTHM 60'S-70'S. PT WAS ABLE TO WEAR BIPAP AND REST FOR MOST OF SHIFT. NO S/SX OF ACUTE DISTRESS. DENIES ANY PAIN, CHEST PAIN, OR DIZZINESS. BED IN LOW POSITION, CALL LIGHT IN REACH, PT DENIES ANY NEEDS AT THIS TIME. WILL CONTINUE TO MONITOR UNTIL HANDOFF TO DAYSHIFT RN.
--- NOTE | 2019-03-21 14:54 | NUR ---
NOON ASSESSMENT AT 1215 NO ACUTE CHANGES SINCE TO REPORT SINCE AM ASSESSMENT. LUNG SOUNDS CLEAR BUT DIMINISHED IN THE BASES. PT SITTING UP EATING LUNCH. VSS. WILL CONTINUE TO MONITOR.
--- NOTE | 2019-03-21 15:54 | NUR ---
AFTERNOON ASSESSMENT BP LOWER THIS AFTERNOON, PT ASYMPTOMATIC. LUNG SOUNDS CLEAR BUT DIM IN THE BASES. PT HAS 3+BLE EDEMA. SMALL OPEN WOUND UNDER SKIN FOLD ON R SIDE OF ABD. NO OTHER ACUTE CHANGES FROM AM AND MID-DAY ASSESSMENTS.
--- NOTE | 2019-03-21 19:52 | NUR ---
SHIFT SUMMARY PT HAS DENIE SHORTNESS OF BREATH AND CHEST PAIN THIS SHIFT. PT HAS REMAINED IN NSR AND SINUS BRADYCARDIA T/O THE SHIFT. SHE IS A 1 ASSIST UP TO THE BSC. FAMILY HAS BEEN PRESENT FOR SUPPORT. VSS. REPORT GIVEN TO ROLANDO ENGLISH.
[2019-03-22 03:54] LABS: BASOPHILS ABSOLUTE AUTO 0.01 K/mm3 (0.00-0.23); BASOPHILS PERCENT AUTO 0 % (0-2); EOSINOPHILS ABSOLUTE AUTO 0.09 K/mm3 (0.00-0.68); EOSINOPHILS PERCENT AUTO 1 % (0-6); Hematocrit 33.6 % (33.0-51.0); Hemoglobin 9.6 g/dL (11.5-16.0); IMMATURE GRAN ABSOLUTE AUTO 0.02 K/mm3 (0.00-0.10); IMMATURE GRAN PERCENT AUTO 0 % (0-1); LYMPHOCYTES ABSOLUTE AUTO 1.21 K/mm3 (0.84-5.20); LYMPHOCYTES PERCENT AUTO 18 % (21-46); MONOCYTES ABSOLUTE AUTO 0.62 K/mm3 (0.16-1.47); MONOCYTES PERCENT AUTO 9 % (4-13); Mean Corpuscular HGB 28.4 pg (26.0-34.0); Mean Corpuscular HGB Conc 28.6 g/dL (31.5-36.5); NEUTROPHILS ABSOLUTE AUTO 4.95 K/mm3 (1.96-9.15); NEUTROPHILS PERCENT AUTO 72 % (41-73); Platelet Count 174 K/mm3 (150-400); RDW Standard Deviation 55.2 fL (35.1-46.3); Red Blood Cell Count 3.38 M/mm3 (3.80-5.20)
[2019-03-22 03:59] LABS: Mean Corpuscular Volume 99 fL (80-100)
[2019-03-22 04:17] LABS: Albumin, Blood 2.7 g/dL (3.4-5.0); Albumin/Globulin Ratio 0.6 (0.8-1.8); Bilirubin, Total 0.4 mg/dL (0.1-1.0); Calcium, Blood 8.9 mg/dL (8.5-10.1); Creatinine, Blood 1.29 mg/dL (0.40-1.00); Globulin, Blood 4.2 g/dL (2.2-4.0); Magnesium, Blood 2.3 mg/dL (1.6-2.4); Potassium, Blood 5.3 mmol/L (3.5-5.5); Total Protein, Blood 6.9 g/dL (6.4-8.2)
[2019-03-22 04:25] LABS: Thyroid Stimulating Hormone 3.02 uIU/mL (0.360-4.800); Triiodothyronine, Free 1.47 pg/mL (2.18-3.98)
--- NOTE | 2019-03-22 05:41 | NUR ---
END OF SHIFT SUMMARY ASSUMED CARE OF PT @1900. PT ALERT AND ORIENTED, FAMILY AT BEDSIDE. VSS T/O SHIFT. PT STARTED SHIFT ON 3.5L NC, SWITCHED TO CPAP. SPO2 >92% T/O SHIFT. PT HAS REQUIRED VERY LITTLE THIS SHIFT FROM STAFF. PT HAS RESTED T/O MAJORITY OF SHIFT POST ASSESMENT. PT'S BILAT LE'S PRESENT WITH +3 EDEMA. PT STATES THIS I A DECREASE FROM EARLIER IN THE SHIFT. PT HAS REMAINED IN SIUS RHYTHM THIS SHIFT. CALL LIGHT WITHIN REACH. BED IN LOWEST POSITION.
[2019-03-22 11:42] LABS: PO2 Arterial 80.1 mmHg (80-100); pH Blood Arterial 7.35 (7.35-7.45)
[2019-03-22 11:44] LABS: PCO2 Arterial 71.7 mmHg (35-45)
--- NOTE | 2019-03-22 19:17 | NUR ---
SHIFT SUMMARY PT ALERT AND ORIENTED. VS STABLE. 02 SATS HAVE REMAINED ABOVE 90% ON 3L NC. PT USES CPAP AT NIGHT PER BASELINE AND 2L NC. BP STABLE. LASIX GTT INFUSING PER ORDERS. PT WORKED WITH PHYSICAL THERAPY TODAY. PT AMBULATING WITH SBA AND FWW TO BATHROOM NEEDED. 2+ EDEMA IN BLE. FEET NOW HAVE WRINKLING TO THEM AND PER PT THEY HAVE IMPROVED SINCE ADMISSION. PT DENIES ANY PAIN. REPORT GIVEN TO ARTIFICIAL FOLIAGE ARRANGER RN.
[2019-03-23 04:31] LABS: Bun/Creatinine Ratio 43.9 (12.0-20.0); Calcium, Blood 9.1 mg/dL (8.5-10.1); Creatinine, Blood 1.14 mg/dL (0.40-1.00); Potassium, Blood 4.6 mmol/L (3.5-5.5)
--- NOTE | 2019-03-23 05:21 | NUR ---
END OF SHIFT SUMMARY PT HAS CONTINUED TO BE ALERT, ORIENTED, COOPERATIVE, AND VERY PLEASANT WITH STAFF. HAS BEEN UP IN SHOWER WITH FIELD CROP FARMWORKER THIS SHIFT. WOUND REDRESSED ON R SIDE. PT HAS CONTINUED TO HAVE LASIX INFUSING AT A RATE OF 5MLS/50MG PER SABAS. PT HAS VOIDED >2L THIS SHIFT. EDEMA HAS SHOWN IMPROVEMENT. PT HAS SLEPT FOR MAJORITY OF SHIFT WITH CPAP ON, TOLERATING WELL. WILL CONTINUE TO MONITOR PT UNTIL SHIFT CHANGE. CALL LIGHT PAT REACH, BED IN LOWEST POSITION.
--- NOTE | 2019-03-23 16:33 | NUR ---
HEART RATE SUSTAINING ABOVE [address] ROJAS CALLED AND NOTIFIED WITH NEW ORDERS PROVIDED. WILL MEDICATE ORDERED. BP STABLE.
--- NOTE | 2019-03-23 18:39 | NUR ---
SHIFT SUMMARY PT ALERT AND ORIENTED. BP STABLE. HR HAS BEEN ELEVATED IN THE 130'S. IV METOPROLOL HAS BEEN GIVEN. PT DENIES ANY PAIN. LASIX GTT INFUSING PER ORDERS. FAMILY AT BEDSIDE. WILL CONTINUE TO MONITOR AND REPORT TO ONCOMING RN. CALL LIGHT IN REACH.
--- NOTE | 2019-03-23 22:30 | NUR ---
CONVERT TO NSR PT CONVERTED FROM AFIB TO NSR @ APPROX 2155 THIS SHIFT.
[2019-03-24 04:06] LABS: BASOPHILS ABSOLUTE AUTO 0.05 K/mm3 (0.00-0.23); BASOPHILS PERCENT AUTO 1 % (0-2); EOSINOPHILS ABSOLUTE AUTO 0.11 K/mm3 (0.00-0.68); EOSINOPHILS PERCENT AUTO 1 % (0-6); Hematocrit 36.5 % (33.0-51.0); Hemoglobin 10.5 g/dL (11.5-16.0); IMMATURE GRAN ABSOLUTE AUTO 0.01 K/mm3 (0.00-0.10); IMMATURE GRAN PERCENT AUTO 0 % (0-1); LYMPHOCYTES PERCENT AUTO 15 % (21-46); MONOCYTES ABSOLUTE AUTO 0.63 K/mm3 (0.16-1.47); MONOCYTES PERCENT AUTO 7 % (4-13); Mean Corpuscular HGB 27.6 pg (26.0-34.0); Mean Corpuscular HGB Conc 28.8 g/dL (31.5-36.5); Mean Corpuscular Volume 96 fL (80-100); Mean Platelet Volume 10.2 fL (9.1-12.4); NEUTROPHILS ABSOLUTE AUTO 6.37 K/mm3 (1.96-9.15); NEUTROPHILS PERCENT AUTO 75 % (41-73); Platelet Count 198 K/mm3 (150-400); RDW Coefficient Variation 14.8 % (11.7-14.2); RDW Standard Deviation 51.8 fL (35.1-46.3); White Blood Cell Count 8.47 K/mm3 (4.00-11.30)
[2019-03-24 04:26] LABS: Bun/Creatinine Ratio 42.5 (12.0-20.0); Calcium, Blood 9.4 mg/dL (8.5-10.1); Creatinine, Blood 1.2 mg/dL (0.40-1.00); Magnesium, Blood 2.2 mg/dL (1.6-2.4); Potassium, Blood 4.4 mmol/L (3.5-5.5)
--- NOTE | 2019-03-24 05:45 | NUR ---
SHIFT SUMMARY PATIENT ALERT AND ORIENTED, REMAINED STABLE THROUGHOUT SHIFT, PATIENT DENIES PAIN, NUMBNESS AND TINGLING. LASIX INFUSINGF GTT PER ORDER. NORMAL SINUS RHYTHM HEART RATE AT 65, USED CPAP WHEN SLEEPING AND 3L NC WHEN AWAKE. BED LOCKED, BLAKE IN LOW POSITION AND CALL LIGHT WITHIN REACH.
--- NOTE | 2019-03-24 08:00 | NUR ---
pt laying in bed watching tv, a/ox3, pleasant and cooperative with care, follows commands well, deneis pain, lungs are clear in upper guerre[place], dim in bases, is currently on 3 liters 02 via n/c, resp even and unlabored, no cough noted, hrr, tele in place running sr per monitor, was reported that she converted at 2155 last night, is only on a lasix gtt at this time, 4+edema noted to b/l le, cap refill <3sec, vs stable, afebrile, iv site to rfa site is clear and patent, btx4, abd large soft nonteneder, voids without diff, skin c/w/d, meaw, shonda call light in reach.
--- NOTE | 2019-03-24 14:10 | NUR ---
pt states she is doing ok, no complaints or needs at this time. call light in reach.l
--- NOTE | 2019-03-24 18:24 | NUR ---
pt laying in bed eating dinner, family in room visiting. no complaints or acute changes this shift, continues on a lasix gtt, call light in reach.
--- NOTE | 2019-03-24 20:27 | NUR ---
BEGINNING SHIFT PATIENT A/O, CLEAR SPOKEN, COOPERATIVE, FAMILY VISITING. PATIENT IN SINUS BRADYCARDIA HEART RATE AT 59 PER COLLECTIVE BARGAINING SPECIALIST. BED LOCKED, LOW IN POSITION AND CALL LIGHT WITHIN REACH.
[2019-03-25 04:20] LABS: BASOPHILS ABSOLUTE AUTO 0.03 K/mm3 (0.00-0.23); BASOPHILS PERCENT AUTO 0 % (0-2); EOSINOPHILS ABSOLUTE AUTO 0.06 K/mm3 (0.00-0.68); EOSINOPHILS PERCENT AUTO 1 % (0-6); Hematocrit 33.7 % (33.0-51.0); Hemoglobin 10.1 g/dL (11.5-16.0); IMMATURE GRAN ABSOLUTE AUTO 0.02 K/mm3 (0.00-0.10); IMMATURE GRAN PERCENT AUTO 0 % (0-1); LYMPHOCYTES ABSOLUTE AUTO 1.28 K/mm3 (0.84-5.20); LYMPHOCYTES PERCENT AUTO 17 % (21-46); MONOCYTES ABSOLUTE AUTO 0.61 K/mm3 (0.16-1.47); MONOCYTES PERCENT AUTO 8 % (4-13); Mean Corpuscular HGB 28.7 pg (26.0-34.0); Mean Corpuscular Volume 96 fL (80-100); NEUTROPHILS ABSOLUTE AUTO 5.47 K/mm3 (1.96-9.15); NEUTROPHILS PERCENT AUTO 73 % (41-73); Platelet Count 158 K/mm3 (150-400); RDW Coefficient Variation 14.7 % (11.7-14.2); RDW Standard Deviation 52.1 fL (35.1-46.3); Red Blood Cell Count 3.52 M/mm3 (3.80-5.20); White Blood Cell Count 7.47 K/mm3 (4.00-11.30)
[2019-03-25 04:40] LABS: Albumin, Blood 3.1 g/dL (3.4-5.0); Albumin/Globulin Ratio 0.7 (0.8-1.8); Bilirubin, Total 0.4 mg/dL (0.1-1.0); Bun/Creatinine Ratio 43.6 (12.0-20.0); Calcium, Blood 9.3 mg/dL (8.5-10.1); Creatinine, Blood 1.17 mg/dL (0.40-1.00); Globulin, Blood 4.4 g/dL (2.2-4.0); Magnesium, Blood 2.3 mg/dL (1.6-2.4); Potassium, Blood 3.8 mmol/L (3.5-5.5); Total Protein, Blood 7.5 g/dL (6.4-8.2)
--- NOTE | 2019-03-25 05:17 | NUR ---
SHIFT SUMMARY PATIENT REMAINED STABLE THROUGHOUT THE SHIFT. PATIENT DENIES PAIN, NUMBNESS AND TINGLING. PATIENT IN SINUS BRADYCARDIA HEART RATE IN THE UPPER 50'S. PATIENT IN 2L NASAL CANNULA WHEN DURING DAYTIME AND CPAP BEDTIME. LASIX IS CONTINUOULSLY INFUSING PER ORDER. BED IS LOCKED, LOW IN POSTION AND CALL LIGHT WITHIN REACH.
--- NOTE | 2019-03-25 09:00 | NUR ---
PT RESTING IN BED, AWAKE, A/OX3, PLEASANT AND COOPERATIVE WITH CARE, FOLLOWS COMMANDS WELL, DENIES PAIN OR SOB. STATES SHE IS DOING GOOD AND FEELING A LOT BETTER, LUNGS ARE DIM T/O, CLEAR IN UPPER MARCIAL, IS CURRENTLY ON 2 LITERS 02 VIA N/C, RESP EVEN AND UNLABORED AT REST, HRR, TELE IN PLACE RUNNING SR PER MONITOR, SEE STRIP, 4+EDEMA NOTED TO B/L LE, IS GOING DOWN SKIN IS WRINKELING, SHE REPORTS HER B/L LE HAVE BEEN SWOLLEN LIKE THAT FOR YRS. IV SITE TO R WRIST, INFUSING LASIX GTT ORDERED, BTX4, ABD FLAT LARGE SOFT NONTENDER, HAS HERNIA TO MID ABD, SKIN HAS A WOUND TO RIGHT SIDE OF ABD WITH DRESSING IN PLACE, LIGHT YEAST RASH UNDER BREASTS, SHE IS RECIEVING NYSTATIN FOR THAT, STEFANIE, SHE IS ABLE TO GET TO BR USING A WALKER, LUIS ALFREDO, CALL LIGHT IN REACH.
--- NOTE | 2019-03-25 13:05 | NUR ---
PT LAYING ON HER SIDE WITH CPAP IN PLACE, SAT UP ON SIDE OF BED FOR LUNCH, NO COMPLAINTS, DID INCREASE THE LASIX GTT TO 7.5ML/HR, NO FURTHER CHANGES, OR NEEDS, CALL LIGHT IN REACH.
--- NOTE | 2019-03-25 14:58 | NUR ---
Full report from Vicky Armstrong, AMADOR. Patient is resting well in bed watching TV.
[2019-03-26 04:05] LABS: Bun/Creatinine Ratio 40.7 (12.0-20.0); Calcium, Blood 9.2 mg/dL (8.5-10.1); Creatinine, Blood 1.35 mg/dL (0.40-1.00); Potassium, Blood 3.5 mmol/L (3.5-5.5)
--- NOTE | 2019-03-26 04:55 | NUR ---
SHIFT SUMMARY PT A&O X4, CALM AND COOPERATIVE. VSS. LUNG SOUNDS CLEAR, DIM IN BASES. SPO2 > 92% ON 2L NC WHILE AWAKE, OR HOME TRILOGY WHILE SLEEPING. MONITOR SB/NSR, HR 50-70. +4 EDEMA TO BLE. BLE ELEVATED ON PILLOW. LASIX GTT INFUSING PER ORDERS. NYSTATIN POWDER APPLIED TO REDDENED AREAS UNDER PT'S SKIN FOLDS AND GROIN AREA. MEPILEX C/D/I TO OPEN SORE UNDER R LATERAL UPPER EXTREMITY SKIN FOLD. WILL CONTINUE TO MONITOR AND PROVIDE CARE UNTIL REPORT OFF TO DAY SHIFT RN.
--- NOTE | 2019-03-26 15:40 | NUR ---
AFTERNOON NOTE PT ALERT AND PLEASANT. SR. VSS. LASIX GTT INFUSING. PT FEET/TOES WITH WRINKLES. NO OPEN AREAS NOTED. SKIN LEATHERY AND DRY. LOTION ORDERED FOR BLE. TALKED WITH PT ABOUT LOW SODIUM DIET AT HOME. WEIGHT MONITORING DAILY AT HOME. PT DENIED PAIN OR DISCOMFORT. UP WITH 1 AIIST. PT HAS DIFFICULTY GETTING TO THE EDGE OF THE BED. ONCE SITTING UP SHE CAN WALK WITH FWW AND SBA. GAIT STEADY. SCD'S ON. GOOD APPETITE. CONTINUE POT.
--- NOTE | 2019-03-26 19:45 | NUR ---
ASSUMED CARE PT RESTING IN ROOM COMFORTABLY AT THIS TIME. PER DAY SHIFT PT HAD NO ACUTE CHANGES IN STATUS. PT IS ON LASIX GTT VIA PIV, AND IS ABLE TO STAND AND WALK TO RR W/ 4WW AND SBA. RESP EVEN UNLABORED AT REST ON 2L NC W/ SATS >92%. PT USES TRILOGY BIPAP AT [facility], TOLERATES WELL. PT DENIES MARYBEL AT THIS TIME REQUESTING SHOWER BEFORE BED. CALL LIGHT IN REACH.
[2019-03-27 04:21] LABS: Bun/Creatinine Ratio 42.1 (12.0-20.0); Calcium, Blood 9.1 mg/dL (8.5-10.1); Creatinine, Blood 1.33 mg/dL (0.40-1.00); Magnesium, Blood 2.4 mg/dL (1.6-2.4); Potassium, Blood 3.3 mmol/L (3.5-5.5)
--- NOTE | 2019-03-27 05:29 | NUR ---
SHIFT SUMMARY PT RESTING IN ROOM COMFORTABLY AT THIS TIME. NO ACUTE CHANGES IN STATUS T/O NIGHT. PT SLEPT WELL AND WORE BIPAP T/O NIGHT. RESP EVEN UNLBAORED W/ SATS >92%. PT HAS SHOWER BEFORE BED AND TOLERATED ACITIVTY WELL. DENIED PAIN /.O NIGHT. CALL LIGHT IN REACH. PT CALLS APPROPRIATELY.
--- NOTE | 2019-03-27 18:23 | NUR ---
SHIFT SUMMARY PT ALERT AND ORIENTED. VS STABLE. PT CONVERTED TO NSR AT 1400. RATE IS NOW IN THE 50-60'S. PT DENIES ANY PAIN. PT ABLE TO AMBULATE TO BATHROOM NEEDED WITH SBA AND FWW. NO OTHER CHANGES NOTED AT THIS TIME. WILL CONTINUE TO MONITOR AND REPORT TO ONCOMING RN. CALL LIGHT IN REACH.
[2019-03-28 03:52] LABS: BASOPHILS ABSOLUTE AUTO 0.03 K/mm3 (0.00-0.23); BASOPHILS PERCENT AUTO 0 % (0-2); EOSINOPHILS ABSOLUTE AUTO 0.07 K/mm3 (0.00-0.68); EOSINOPHILS PERCENT AUTO 1 % (0-6); Hematocrit 35.5 % (33.0-51.0); Hemoglobin 10.5 g/dL (11.5-16.0); IMMATURE GRAN ABSOLUTE AUTO 0.03 K/mm3 (0.00-0.10); IMMATURE GRAN PERCENT AUTO 0 % (0-1); LYMPHOCYTES PERCENT AUTO 16 % (21-46); MONOCYTES ABSOLUTE AUTO 0.68 K/mm3 (0.16-1.47); MONOCYTES PERCENT AUTO 9 % (4-13); Mean Corpuscular HGB 28.5 pg (26.0-34.0); Mean Corpuscular HGB Conc 29.6 g/dL (31.5-36.5); Mean Corpuscular Volume 97 fL (80-100); Mean Platelet Volume 10.6 fL (9.1-12.4); NEUTROPHILS ABSOLUTE AUTO 5.92 K/mm3 (1.96-9.15); NEUTROPHILS PERCENT AUTO 74 % (41-73); Platelet Count 166 K/mm3 (150-400); RDW Coefficient Variation 14.6 % (11.7-14.2); RDW Standard Deviation 51.8 fL (35.1-46.3); Red Blood Cell Count 3.68 M/mm3 (3.80-5.20); White Blood Cell Count 8.03 K/mm3 (4.00-11.30)
[2019-03-28 04:16] LABS: Albumin, Blood 3.2 g/dL (3.4-5.0); Albumin/Globulin Ratio 0.7 (0.8-1.8); Bilirubin, Total 0.5 mg/dL (0.1-1.0); Calcium, Blood 8.8 mg/dL (8.5-10.1); Creatinine, Blood 1.64 mg/dL (0.40-1.00); Free Thyroxine 0.87 ng/dL (0.70-1.60); Globulin, Blood 4.7 g/dL (2.2-4.0); Potassium, Blood 3.4 mmol/L (3.5-5.5); Total Protein, Blood 7.9 g/dL (6.4-8.2)
[2019-03-28 04:19] LABS: Triiodothyronine, Free 1.84 pg/mL (2.18-3.98)
--- NOTE | 2019-03-28 05:00 | NUR ---
SHIFT SUMMARY PT REMAINS ON FLOOR FOR CHF EXACERBATION LEADING TO A-FIB WITH RVR. SHE HAS REMAINED NSR TO SINUS PILAR OVERNIGHT, NO MORE EPISODES OF A-FIB. PT DENIES CP, PALPITATIONS, SWEATING. PT IS A&O, ABLE TO MAKE NEEDS KNOWN. SBA FOR AMBULATION W/ FWW. EDEMA IS MUCH IMPROVED W/ LASIX DRIP, PT REPORTS DECREASED SOB ON 2L VIA NC, INCREASED ACTIVITY TOLERANCE, DECREASED SWELLING IN BLE. BUN AND CREATININE INCREASED FURTHER THIS AM. WILL CTM UNTIL PASS TO NEXT SHIFT.
--- NOTE | 2019-03-28 10:40 | NUR ---
PATIENT TRANSFERRED FROM PCU 6 TO ROOM 341. PATIENT IS A/O X4, UP WITH FWW AND SBA. 2LO2 HERE AND AT BASELINE. PATIENT DENIES ANY PAIN OR DISCOMFORT. TELE HAS BEEN D/C'D. VSS THIS AM, COREG HELD DUE TO PULSE IN THE 50'S. PATIENT ORIENTED TO ROOM AND USE OF CALL LIGHT. INSTRUCTED TO CALL FOR ASSISTANCE. DENIES ANY NEEDS AT THIS TIME.
--- NOTE | 2019-03-28 10:45 | NUR ---
ASSUMED CARE OF PT AT APPROXIMATELY 0730, PT ALERT AND ORIENTED. VS STABLE. HR NSR TO SB WITH A RATE 50-60. BP STABLE. O2 SATS REMAIN ABOVE 90% ON 2L NC. DR. ROJAS IN THIS AM TO DC LASIX GTT AND TRANSFER TO MEDICAL FLOOR. REPORT CALLED TO MEDICAL FLOOR RN. PT TAKEN UP WITH ALL OF HER BELONGINGS.
--- NOTE | 2019-03-28 19:46 | NUR ---
Will update son on previous visit to see what his needs are and if he has completed advance directive
--- NOTE | 2019-03-29 03:55 | NUR ---
SHIFT SUMMARY PT AWAKE, LYING HF, WATCHING TV DURING SHIFT REPORT. NO C/O. PT ADMITTED FOR A-FIB W/RVR D/T FLUID OVERLOAD, TX FROM PCU EARLIER IN THE AM. PER SHIFT REPORT, PT HAS HAD A 30LB WT LOSS SINCE ADMIT. PT MORBIDLY OBESE, WITH BLE EDEMA. SBA WITH FWW TO BTHRM. USING HOME CPAP WITH 2L O2 WHILE SLEEPING. POSSIBLE D/C TODAY. CALL LT IN REACH.
[2019-03-29 06:09] LABS: Bun/Creatinine Ratio 45.5 (12.0-20.0); Creatinine, Blood 1.45 mg/dL (0.40-1.00); Potassium, Blood 3.2 mmol/L (3.5-5.5)
[2019-03-29] MEDS ORDERED: SKIN TREATMENT225 GM TOP (11:40)
[2019-03-29] MEDS ORDERED: LIOT5 PO (11:41)
[2019-03-29] MEDS ORDERED: MIRALAX17 GM PO (11:42)
--- NOTE | 2019-03-29 14:33 | NUR ---
PATIENT D/C'D TO HOME. [facility] D/C INSTRUCTIONS AND EDUCATION DISCUSSED WITH PATIENT AND COPY PROVIDED. FOLLOW UP APPT MADE WITH PCP FOR NEXT TUESDAY. PATIENT DENIES ANY FURTHER QUESTIONS OR CONCERNS.
== END 2019-03-29 14:44 | disposition home health service (06) | DRG 308 ==
LOC: ER 17:22 → PCU 17:23 → MEDS 03-28 10:34 → ENPENDDIS 03-29 11:24 → MEDS 03-29 14:44
PROVIDERS: Emergency Medicine; Internal Medicine; ADMIT Hospitalist
DX: I48.91 Unspecified atrial fibrillation (principal); J96.21 Acute and chronic respiratory failure with hypoxia; I13.0 Hypertensive heart and chronic kidney disease with heart failure and stage 1 through stage 4 chronic kidney disease, or unspecified chronic kidney disease; I50.32 Chronic diastolic (congestive) heart failure; E66.2 Morbid (severe) obesity with alveolar hypoventilation; Z68.43 Body mass index [BMI] 50.0-59.9, adult; N18.3 Chronic kidney disease, stage 3 (moderate); J44.9 Chronic obstructive pulmonary disease, unspecified; E03.9 Hypothyroidism, unspecified; G47.33 Obstructive sleep apnea (adult) (pediatric); G83.9 Paralytic syndrome, unspecified; I27.20 Pulmonary hypertension, unspecified; Z99.81 Dependence on supplemental oxygen; Z87.891 Personal history of nicotine dependence
CPT/HCPCS: 36415; 36600; 71045; 80048; 80053; 82803; 82947; 83690; 83735; 83880; 84439; 84443; 84481; 84484; 85025; 85610; 93005; 93010; 94640; 94660; 94762; 96374; 96375; 96376; 97116; 97162; 97530; 99285-25; G0378; J1120; J1940

== ENCOUNTER 2019-05-07 16:31 | Inpatient (IN) | payer MEDICARE, OTHER ==
[~2019-05-07] VITALS: Ht 152.4 cm; Wt 131.3 kg
[~2019-05-07 16:31] MED LIST changes: +CARV25 PO; -CARV6.25 PO; +LACT5TL TOP; +LIOT5 PO; +MIRALAX17 GM PO; -XARELTO15 MG PO
[2019-05-07 16:58] LABS: BASOPHILS ABSOLUTE AUTO 0.02 K/mm3 (0.00-0.23); BASOPHILS PERCENT AUTO 0 % (0-2); EOSINOPHILS ABSOLUTE AUTO 0.07 K/mm3 (0.00-0.68); EOSINOPHILS PERCENT AUTO 1 % (0-6); Hematocrit 37.3 % (33.0-51.0); Hemoglobin 10.8 g/dL (11.5-16.0); IMMATURE GRAN ABSOLUTE AUTO 0.02 K/mm3 (0.00-0.10); IMMATURE GRAN PERCENT AUTO 0 % (0-1); LYMPHOCYTES ABSOLUTE AUTO 0.83 K/mm3 (0.84-5.20); LYMPHOCYTES PERCENT AUTO 11 % (21-46); MONOCYTES ABSOLUTE AUTO 0.52 K/mm3 (0.16-1.47); MONOCYTES PERCENT AUTO 7 % (4-13); Mean Corpuscular HGB 28.6 pg (26.0-34.0); Mean Corpuscular Volume 99 fL (80-100); Mean Platelet Volume 9.9 fL (9.1-12.4); NEUTROPHILS ABSOLUTE AUTO 6.28 K/mm3 (1.96-9.15); NEUTROPHILS PERCENT AUTO 81 % (41-73); Platelet Count 174 K/mm3 (150-400); RDW Coefficient Variation 14.2 % (11.7-14.2); RDW Standard Deviation 51.4 fL (35.1-46.3); Red Blood Cell Count 3.77 M/mm3 (3.80-5.20); White Blood Cell Count 7.74 K/mm3 (4.00-11.30)
[2019-05-07 17:29] LABS: Troponin I <0.015 ng/mL (0.000-0.040)
[2019-05-07 17:54] LABS: Alanine Aminotransfer (ALT/SGP 19 U/L (12-78); Albumin, Blood 3.4 g/dL (3.4-5.0); Albumin/Globulin Ratio 0.7 (0.8-1.8); Alk Phos 98 U/L (50-136); Anion Gap 3 mmol/L (6-16); Aspartate Aminotrans (AST/SGOT 13 U/L (12-37); Bilirubin, Total 0.3 mg/dL (0.1-1.0); Blood Urea Nitrogen 31 mg/dL (8-24); Bun/Creatinine Ratio 29.2 (12.0-20.0); CO2, Blood 37 mmol/L (21-32); Calcium, Blood 9.4 mg/dL (8.5-10.1); Chloride, Blood 99 mmol/L (98-108); Creatinine, Blood 1.06 mg/dL (0.40-1.00); Globulin, Blood 4.7 g/dL (2.2-4.0); Glomerular Filtration Rate 54 (60-); Glucose, Blood 168 mg/dL (70-99); Potassium, Blood 4.6 mmol/L (3.5-5.5); Sodium, Blood 139 mmol/L (136-145); Total Protein, Blood 8.1 g/dL (6.4-8.2)
--- NOTE | 2019-05-08 04:56 | NUR ---
SHIFT SUMMARY PT ADMITTED WITH ACUTE ON CHRONIC RESPIRATORY FAILURE WITH HYPOXIA. PT ALERT AND ORIENTED X4, UP TO BSC WITH FWW PER SELF. PT WEARS TRILOGY MASK AT NIGHT, HOME MACHINE BROUGHT IN PER DAUGHTER. PT DYSPNEIC WITH LITTLE ACTIVITY. GIVEN A TOTAL OF 80 MG IV LASIX AND HAS PUT OUT 1500 ML'S YELLOW URINE, STATES SHE HAS GAINED 20 POUNDS IN THE LAST WEEK. PT DOES NEED ASSISTANCE GETTING LEGS INTO BED. DENIES PAIN. HAS SLEPT FAIR DURING THE NIGHT, WILL CONTINUE TO MONITOR.
[2019-05-08 05:13] LABS: Bun/Creatinine Ratio 31.5 (12.0-20.0); Calcium, Blood 8.9 mg/dL (8.5-10.1); Creatinine, Blood 1.08 mg/dL (0.40-1.00); Magnesium, Blood 2.1 mg/dL (1.6-2.4); Potassium, Blood 4.6 mmol/L (3.5-5.5)
--- NOTE | 2019-05-08 17:10 | NUR ---
SUMMARY- PT ALERT AND ORIENTED- INDEPENDANT IN ROOM WITH WALKER. TOLERATING FOOD AND FLUIDS. CONT DIURESING FOR LIKELY FLUID OVERLOAD. LUNGS ABSENT RLL WITH PL EFFUSION PRESENT. DIM IN LLL. CT GUIDED THOROCENTESIS NOT PERFORMED UNABLE TO FIND ENOUGH FREE FLUID TO DRAW OFF. CONT TELE SB 60. O2 ON 3-5L, SOB WITH ACTIVITY INCREASING O2 NEEDED. WILL START XERALTO AT 1800 DOSE, MISSED DOSE 7/8. FAMILY AT BEDSIDE MOST OF THE DAY. PT SITTING AT THE EDGE OF THE BED A LOT OF THE DAY.
--- NOTE | 2019-05-09 06:22 | NUR ---
NOC SHIFT SUMMARY PT IS PLEASANT AND COOPERATIVE WITH CARE THIS NIGHT. RECIEVED CALL AT APPROX 0230 FROM HEALTH AND WELLNESS MANAGER THAT PT'S HEART RHYTHIM HAD CHANGED TO AFIB GETTING MARY THE 150'S. I SPOKE WITH PT AND SHE RELATED FEELING A FLUTTERING IN HER CHEST AND SOME PAIN IN HER NECK. SHE STATES THAT SHE HAS HAD AFIB NUMEROUS TIMES IN THE PAST AND EACH TIME SHE DEVELOPES THE PAIN IN HER NECK. I CALLED TO HOSSPITALIST AND RECIEVED ORDER FOR LOPRESSOR 5MG IV. THIS WAS GIVEN. PT STATES SOME IMPROVEMENT IN THE FLUTTERING FEELING. HR HAS DECREASED AND VS HAVE REMAINED STABLE. LAST HR PER MONITOR TECHWAS 118 AND WAS AFIB. PT PRESENTLY SITTING UP IN THE BED AND SPPEARS IN NO ACUTE DISTRESS. WILL CONTINUE TO MONITOR.
--- NOTE | 2019-05-09 19:51 | NUR ---
SUMMARY- PT CONT TO FEEL "BREATHLESS" INTERMITTENTLY THROUGHOUT THE DAY. HAS BEEN IN A FIB 100-120'S, SATS 92-97%, O2 3-5L, INCREASED DEMAND WITH ACTIVITY. HAS BEEN ABLE TO AMBULATE SBA TO BATHROOM, HAD A SHOWER THIS AM. USES TRILOGY INTERMITTENT FOR SHORT PERIODS OF TIME TODAY, BUT WAS NOT ABLE TO TOLERATE FOR TOO LONG. PT CONT ABSENT BS IN R BASE AND DIM R MID LOBE, R SIDE HEARD FAINT CX. POSITIONING WITH HOB UPRIGHT AND ARMS ON PILLOWS AIDED IN BREATHING AT TIMES. WEITHT DOWN FROM 317-303LB, DIURESING. CONT WITH SEVERE LE EDEMA AND LEG CRAMPS. RLE WEAPING. REPORT TO RAVI MOSLEY.
--- NOTE | 2019-05-10 04:40 | NUR ---
SHIFT SUMMARY: PT IS ALERT AND ORIENTED. PT IS CALM AND COOPERATIVE WITH CARE. PT CALLS APPROPRIATELY. PT IS A ONE PERSON ASSIST WITH FWW. PT REPORTS INTERMITTENT SOB, 02 3-5 L VIA NC KEEPING SATS > 90%. PT DENIES PAIN, NAUSEA, AND VOMITING. FAMILY IN TO VISIT EARLY IN SHIFT. PT SLEPT MUCH OF THE NIGHT. NO ACUTE CHANGES OR COMPLICATIONS OVERNIGHT. BED IN LOW POSITION, CALL LIGHT WITHIN REACH. WILL CONTINUE TO MONITOR.
[2019-05-10 05:18] LABS: BASOPHILS ABSOLUTE AUTO 0.02 K/mm3 (0.00-0.23); BASOPHILS PERCENT AUTO 0 % (0-2); EOSINOPHILS ABSOLUTE AUTO 0.06 K/mm3 (0.00-0.68); EOSINOPHILS PERCENT AUTO 1 % (0-6); Hemoglobin 9.9 g/dL (11.5-16.0); IMMATURE GRAN ABSOLUTE AUTO 0.02 K/mm3 (0.00-0.10); IMMATURE GRAN PERCENT AUTO 0 % (0-1); LYMPHOCYTES ABSOLUTE AUTO 0.93 K/mm3 (0.84-5.20); LYMPHOCYTES PERCENT AUTO 14 % (21-46); MONOCYTES ABSOLUTE AUTO 0.55 K/mm3 (0.16-1.47); MONOCYTES PERCENT AUTO 8 % (4-13); Mean Corpuscular HGB 28.1 pg (26.0-34.0); Mean Corpuscular HGB Conc 28.3 g/dL (31.5-36.5); Mean Corpuscular Volume 99 fL (80-100); Mean Platelet Volume 10.3 fL (9.1-12.4); NEUTROPHILS ABSOLUTE AUTO 5.23 K/mm3 (1.96-9.15); NEUTROPHILS PERCENT AUTO 77 % (41-73); Platelet Count 150 K/mm3 (150-400); RDW Coefficient Variation 13.9 % (11.7-14.2); RDW Standard Deviation 50.5 fL (35.1-46.3); Red Blood Cell Count 3.52 M/mm3 (3.80-5.20); White Blood Cell Count 6.81 K/mm3 (4.00-11.30)
[2019-05-10 05:36] LABS: Bun/Creatinine Ratio 32.7 (12.0-20.0); Creatinine, Blood 1.01 mg/dL (0.40-1.00); Potassium, Blood 4.5 mmol/L (3.5-5.5)
[2019-05-10 12:08] LABS: Bicarbonate Venous 38.9 mmol/L (24.0-30.0); PCO2 Venous 76.2 mmHg (38-42); PO2 Venous 67.3 mmHg (38-42); pH Blood Venous 7.36 (7.34-7.37)
[2019-05-10 12:09] LABS: Base Excess Venous 18 mmol/L
--- NOTE | 2019-05-10 17:29 | NUR ---
PATIENT IS ALERT AND ORIENTED AND COOPERATIVE WITH CARE. COMPLAINED OF ANXIETY THIS MORNING BEFORE CT SCAN. COMPLAINED OF RESTLESS LEGS THIS AFTERNOON. SOB WITH EXERTION. SBA TO THE BATHROOM. PATIENT NEEDS HELP GETTING BACK INTO BED. TELEMETRY IN PLACE, RATE AND RHYTHM RANGES FROM AFIB IN 120'S BPM TO SINUS BRADYCARDIA IN THE 50'S. WILL CONTINUE TO MONITOR.
--- NOTE | 2019-05-11 04:03 | NUR ---
SHIFT SUMMARY: PT IS ALERT AND ORIENTED. PT IS CALM AND COOPERATIVE WITH CARE. PT IS A ONE ASSIST WITH FWW. PT CALLS APPROPRIATELY. FAMILY IN VISITING AT START OF SHIFT. PT DESATTING SEVERAL TIMES, CALLED RT SEVERAL TIMES FOR TRILOGY MACHINE ADJUSTMENTS, SATS CURRENTLY > 90% FOR SOME TIME NOW. PT REPORTS PAIN WITH HER RESTLESS LEGS, GAVE PRN TYLENOL. PT REPORTS NAUSEA ON ONE OCCASION, CALLED DR. ANTONY AND RECEIVED A ONE TIME ORDER FOR ZOFRAN. PT DENIES VOMITING. BED IN LOW POSITION, CALL LIGHT WITHIN REACH. WILL CONTINUE TO MONITOR.
[2019-05-11 11:32] LABS: PCO2 Arterial > 105 mmHg (35-45); PO2 Arterial 51.3 mmHg (80-100); pH Blood Arterial 7.23 (7.35-7.45)
[2019-05-11 12:26] LABS: Source, Urine Catheter
[2019-05-11 12:29] LABS: Appearance, Urine Clear (Clear); Bilirubin, Urine Neg (Neg); Blood, Urine Neg (Neg); Color, Urine Yellow (P-Yellow); Glucose Qualitative, Urine Neg (Neg); Ketones, Urine Neg (Neg); Leukocyte Esterase, Urine 1+ (Neg); Nitrite, Urine Neg (Neg); Protein, Urine 1+ (Neg); Urobilinogen, Urine NORM (Normal)
--- NOTE | 2019-05-11 12:31 | NUR ---
THE PATIENT'S FAMILY HAS BEEN AT THE BEDSIDE THROUGHOUT THE MORNING. THE DAUGHTER MENTIONED TO THE RN THAT THE PATIENT IS MORE SLEEPY THAN USUAL AND SHARED HER CONCERNS OF CO2 TOXICITY. RN PASSED THIS INFORMATION ON TO THE SAP SOLUTIONS ARCHITECT. RT WAS ASKED TO COME SEE THE PATIENT. AN ABG WAS ORDERED AND RECIEVED. CRITICAL HIGH VALUE OF PCO2- >105 AND ABG pH- 7.[address] PETTIT ASKED FOR THE PATIENT TO BE TRANSFERRED TO PCU. THE FAMILY MENTIONED THAT THE PATIENT OFTEN RETAINS URINE BECAUSE SHE DOESNT WANT TO GET UP TO USE THE RESTROOM. THE PATIENT HAD NOT BEEN OUT OF BED AT THIS POINT IN THE DAY, A BLADDER SCAN WAS ORDERED AND PERFORMED. 640 ML OF URINE. A PANG CATHETER WAS ORDERED AND INSERTED. PATIENT IS SLEEPY/AROUSABLE. WILL CONTINUE TO MONITOR. REPORT WILL BE GIVEN TO RN IN PCU WHO IS TAKING OVER THIS PATIENT.
[2019-05-11 12:39] LABS: Hematocrit 38.8 % (33.0-51.0); Hemoglobin 10.7 g/dL (11.5-16.0); Mean Corpuscular HGB 27.8 pg (26.0-34.0); Mean Corpuscular HGB Conc 27.6 g/dL (31.5-36.5); Mean Corpuscular Volume 101 fL (80-100); Mean Platelet Volume 10.1 fL (9.1-12.4); Platelet Count 159 K/mm3 (150-400); RDW Standard Deviation 51.5 fL (35.1-46.3); Red Blood Cell Count 3.85 M/mm3 (3.80-5.20); White Blood Cell Count 7.59 K/mm3 (4.00-11.30)
[2019-05-11 12:43] LABS: Red Blood Cells, Urine 0-2 /hpf (0-2); White Blood Cells, Urine 0-2 /hpf (0-5)
[2019-05-11 12:44] LABS: Bacteria Rare /hpf; Granular Casts 0-2 /lpf (0); Squamous Epithelial Cells Few /hpf (Few)
[2019-05-11 13:03] LABS: PCO2 Arterial 104 mmHg (35-45); PO2 Arterial 82.2 mmHg (80-100); pH Blood Arterial 7.24 (7.35-7.45)
[2019-05-11 13:29] LABS: Bun/Creatinine Ratio 32.5 (12.0-20.0); Calcium, Blood 9.2 mg/dL (8.5-10.1); Creatinine, Blood 1.26 mg/dL (0.40-1.00); Potassium, Blood 5.4 mmol/L (3.5-5.5)
--- NOTE | 2019-05-11 13:34 | NUR ---
PT TO PCU ROOM 16, BIPAP PLACED BY RT, 10/07, RATE 16. SPO2 98% AT THIS TIME, LS DIMINISHED T/O WITH CRACKLES IN BASES, 3+ EDEMA TO BLE'S, LEGS REDDENED AND BLISTERED, SMALL AMOUNT OF WEEPING NOTED. EKG DONE, VSS.
--- NOTE | 2019-05-11 14:50 | NUR ---
PT DROWSY AT THIS TIME, REMAINS ORIENTED WHEN AWAKE. SPO2 96%, BIPAP SETTINGS 22/8, RATE 16, FIO2 40%. ABG'S DRAWN AT THIS TIME BY RT. FAMILY AT BEDSIDE.
[2019-05-11 15:01] LABS: PCO2 Arterial 102 mmHg (35-45); PO2 Arterial 68.6 mmHg (80-100); pH Blood Arterial 7.26 (7.35-7.45)
[2019-05-11 16:57] LABS: PO2 Arterial 70.8 mmHg (80-100)
[2019-05-11 16:58] LABS: PCO2 Arterial 103 mmHg (35-45); pH Blood Arterial 7.25 (7.35-7.45)
--- NOTE | 2019-05-11 17:29 | NUR ---
Initial Visit: Palliative Care Visit for Cardiac, Medically Fragile, and Readmission. Pt is sleeping and on BIPAP. Pt's sister Lavinia, Meleody's boyfriend, and Pt's son present during visit. Engaged in discussion regarding goals of care. Family reports Pt lives at home alone and has her grandchildren spend the night with her often. Family report Pt uses a walker for ambulation and is independent of her ADL's. Family reports Pt does require assistance with house cleaning and shoping. Up until 6 months ago Pt was driving. Son lives next door and Pt calls to inform him when she is getting in the shower then calls to let him know she is out of the shower. Encouraged Family to express concerns and fears. Family reports Pt is compliant with her medications but not compliant with her food and fluid intake. Pt eats a lot of salty processed foods and drinks a lot of diet soda and water. Family reports Pt is not compliant with her fluid restriction. Suggested to family the importance of having a conversation with Pt regarding her health and learning Pt's priority's. Respiratory therapy enters to obtain ABG and family is educated on Pt's CO2 retention. Family's expresses main goal for Pt is to receive rehabilitation. Suggested high risk program and family reports Pt received this prior to current hospital stay and is agreeable to continue. Family distracted with the possibility of Pt transfering to ICU and this RN ended visit. Instructed family palliative care will F/U at a later time when Pt is able to communicate. Palliative Care will remain available.
--- NOTE | 2019-05-11 17:29 | NUR ---
Echocardiogram completed.
--- NOTE | 2019-05-11 18:38 | NUR ---
1700: ABG DRAWN. PT AWAKE ON AND OFF, CONFUSED. SPO2 > 95%, ABG'S NOT IMPROVING. 1840: AWARE OF ABG RESULTS, NEW ORDER. PT RESTING IN BED, VSS, REMAINS CONRFUSED. BIPAP SETTINGS CHANGED BY RT, CURRENTLY 25/10, RATE 16, FIO2 40%, SPO2 >90%. FAMILY MEMBERS REMAIN AT BEDSIDE, PO MEDICATIONS HELD FOR BIPAP, LASIX ADMINSITERED PER ORDERS. REPORT TO ONCOMING SHIFT.
[2019-05-11 20:08] LABS: PCO2 Arterial 96.4 mmHg (35-45); pH Blood Arterial 7.27 (7.35-7.45)
[2019-05-12 04:59] LABS: PO2 Arterial 73.5 mmHg (80-100); pH Blood Arterial 7.35 (7.35-7.45)
--- NOTE | 2019-05-12 05:11 | NUR ---
PCU NOC SHIFT SUMMARY PATIENT ALERT AND ORIENTED T/O THE SHIFT. PATIENT REMAINED ON THE BIPAP T/O SHIFT WITH VERY SHORT BREAKS ONLY FOR SIPS OF WATER. CO2 IMPROVED MODERATELY PER ABG'S T/O SHIFT. PATIENT STATES SHE IS FEELING BETTER. HR REMAIN SR IN THE 60'S T/O SHIFT. NO ACUTE CHANGES NOTED. VSS. REPORTED OFF TO MILTON ENGLISH.
[2019-05-12 06:01] LABS: BASOPHILS ABSOLUTE AUTO 0.03 K/mm3 (0.00-0.23); BASOPHILS PERCENT AUTO 0 % (0-2); EOSINOPHILS ABSOLUTE AUTO 0.07 K/mm3 (0.00-0.68); EOSINOPHILS PERCENT AUTO 1 % (0-6); Hemoglobin 9.6 g/dL (11.5-16.0); IMMATURE GRAN ABSOLUTE AUTO 0.02 K/mm3 (0.00-0.10); IMMATURE GRAN PERCENT AUTO 0 % (0-1); LYMPHOCYTES ABSOLUTE AUTO 0.88 K/mm3 (0.84-5.20); LYMPHOCYTES PERCENT AUTO 12 % (21-46); MONOCYTES ABSOLUTE AUTO 0.66 K/mm3 (0.16-1.47); MONOCYTES PERCENT AUTO 9 % (4-13); Mean Corpuscular HGB 28.3 pg (26.0-34.0); Mean Corpuscular HGB Conc 28.2 g/dL (31.5-36.5); Mean Corpuscular Volume 100 fL (80-100); Mean Platelet Volume 9.9 fL (9.1-12.4); NEUTROPHILS ABSOLUTE AUTO 5.65 K/mm3 (1.96-9.15); NEUTROPHILS PERCENT AUTO 77 % (41-73); Platelet Count 157 K/mm3 (150-400); RDW Coefficient Variation 13.8 % (11.7-14.2); Red Blood Cell Count 3.39 M/mm3 (3.80-5.20); White Blood Cell Count 7.31 K/mm3 (4.00-11.30)
--- NOTE | 2019-05-12 06:13 | NUR ---
After wearing the bipap all night, the pt requested a break this morning from it. She is currently wearing oxygen delivery [per nasal cannula at 3 l/min and maintaining spo2 of 90%, while sipping some coffee and carrying on conversation with her granddaughter. She is pleasantly conversant and cheerful, and appears without any dyspnea or anxiety.
[2019-05-12 06:18] LABS: Bun/Creatinine Ratio 36.3 (12.0-20.0); Calcium, Blood 8.7 mg/dL (8.5-10.1); Creatinine, Blood 1.24 mg/dL (0.40-1.00); Magnesium, Blood 2.1 mg/dL (1.6-2.4); Phosphorus, Blood 3.5 mg/dL (2.5-4.9)
--- NOTE | 2019-05-12 06:46 | NUR ---
the pt is back on the bipap at this time. Corey Marr, RT, assisted the pt to put the bipap back on.
[2019-05-12 13:05] LABS: Source, Urine Catheter
[2019-05-12 13:08] LABS: Bilirubin, Urine Neg (Neg); Blood, Urine 4+ (Neg); Glucose Qualitative, Urine Neg (Neg); Ketones, Urine Neg (Neg); Leukocyte Esterase, Urine 3+ (Neg); Nitrite, Urine Neg (Neg); Protein, Urine Neg (Neg); Urobilinogen, Urine NORM (Normal)
[2019-05-12 13:22] LABS: Appearance, Urine Hazy (Clear); Color, Urine Yellow (P-Yellow)
[2019-05-12 13:24] LABS: Squamous Epithelial Cells Rare /hpf (Few)
[2019-05-12 13:25] LABS: Bacteria Few /hpf
[2019-05-12 16:30] LABS: Base Excess Venous 18.8 mmol/L; Bicarbonate Venous 40.1 mmol/L (24.0-30.0); PCO2 Venous 65.3 mmHg (38-42); pH Blood Venous 7.43 (7.34-7.37)
--- NOTE | 2019-05-12 17:50 | NUR ---
END OF SHIFT SUMMARY; PT VENOUS BLOOD GAS THIS AFTERNOON IS MUCH IMPROVED FROM PREVIOUS. PER PT TO REMAIN ON BIPAP ONLY OFF FOR MEALS AND SMALL BREAKS FOR FLUIDS. PT HAS PANG CATHETER FOR INCREASES SOB WITH EXERTION AND IS ON DIURETICS. SHE IS COOPERATIVE WITH CARE AND HAS PLEASANT AFFECT. HEART RHYTHM CONVERTS TO AFIB THIS AFTERNOON. SHE IS ASYMPTOMATIC AT THIS TIME BUT DOES EXPRESS SHE FELT HERSELF GO INTO AFIB. WILL CONTINUE TO MONITOR THIS PATEINT UNTIL REPORT AND HAND OFF TO NOC SHIFT RN.
[2019-05-13 00:47] LABS: Adenovirus Not Detected (NOT DETECT); Bordetella pertussis Not Detected (NOT DETECT); Chlamydophila pneumoniae Not Detected (NOT DETECT); Coronavirus 229E Not Detected (NOT DETECT); Coronavirus HKU1 Not Detected (NOT DETECT); Coronavirus NL63 Not Detected (NOT DETECT); Coronavirus OC43 Not Detected (NOT DETECT); Human Metapneumovirus Not Detected (NOT DETECT); Human Rhinovirus/Enterovirus Not Detected (NOT DETECT); Influenza A Not Detected (NOT DETECT); Influenza A/2009-H1 Not Detected (NOT DETECT); Influenza A/H1 Not Detected (NOT DETECT); Influenza A/H3 Not Detected (NOT DETECT); Influenza B Not Detected (NOT DETECT); Mycoplasma pneumoniae Not Detected (NOT DETECT); Parainfluenza Virus 1 Not Detected (NOT DETECT); Parainfluenza Virus 2 Not Detected (NOT DETECT); Parainfluenza Virus 3 Not Detected (NOT DETECT); Parainfluenza Virus 4 Not Detected (NOT DETECT); Respiratory Syncytial Virus Not Detected (NOT DETECT)
[2019-05-13 03:58] LABS: Hematocrit 33.9 % (33.0-51.0); Hemoglobin 9.8 g/dL (11.5-16.0); Mean Corpuscular HGB 27.5 pg (26.0-34.0); Mean Corpuscular HGB Conc 28.9 g/dL (31.5-36.5); Mean Platelet Volume 10.2 fL (9.1-12.4); Platelet Count 156 K/mm3 (150-400); RDW Standard Deviation 48.9 fL (35.1-46.3); Red Blood Cell Count 3.56 M/mm3 (3.80-5.20); White Blood Cell Count 7.07 K/mm3 (4.00-11.30)
[2019-05-13 04:01] LABS: Mean Corpuscular Volume 95 fL (80-100)
[2019-05-13 04:18] LABS: Albumin, Blood 2.8 g/dL (3.4-5.0); Anion Gap 3 mmol/L (6-16); Blood Urea Nitrogen 42 mg/dL (8-24); Bun/Creatinine Ratio 39.6 (12.0-20.0); CO2, Blood 42 mmol/L (21-32); Calcium, Blood 8.6 mg/dL (8.5-10.1); Chloride, Blood 93 mmol/L (98-108); Creatinine, Blood 1.06 mg/dL (0.40-1.00); Glomerular Filtration Rate 54 (60-); Glucose, Blood 106 mg/dL (70-99); Phosphorus, Blood 2.5 mg/dL (2.5-4.9); Potassium, Blood 4.3 mmol/L (3.5-5.5); Sodium, Blood 138 mmol/L (136-145)
[2019-05-13 04:52] LABS: PCO2 Arterial 67.2 mmHg (35-45); PO2 Arterial 86.9 mmHg (80-100); pH Blood Arterial 7.44 (7.35-7.45)
--- NOTE | 2019-05-13 05:13 | NUR ---
END OF SHIFT SUMMARY PT AXO TALKING APPROPRIATELY. FAMILY AT BEDSIDE T/O NIGHT. PT HAS BEEN ON BIPAQP, / 35%, BESIDES SOME MASK READJUSTMENTS, PT HAS TOLERATED THESE SETTINGS. PT HAS BEEN ABLE TO TOLERATE WITHOUT MASK FOR BRIEF BREAKS TO DRINK/EAT. PT IN AFIB, THIS IS CHRONIC. VSS T/O SHIFT. PANG PATENT AND DRAINING, CLEANED. PT USES DARRIUS LIGHT APPROPRIATELY. HAS BEEN AT SIDE OF BED MULTIPLE TIMES THIS SHIFT. WILL CONTIN UE TO MONITOR PT UNTIL SHIFT CHANGE. CALL LIGHT WITHIN REACH.
--- NOTE | 2019-05-13 18:54 | NUR ---
END OF SHIFT; CONSULTS WITH PATIENT TODAY AND PER VERBAL ORDERS SHE SAID THAT PT WILL BE STARTING BACK ON HER TRILOGY TOMORROW AND REMAIN IN HOSPITAL ONE MORE DAY AFTER SO SHE CAN BE MONITORED AND LABS DRAWN TO REFLECT IF SHE IS ABLE TO KEEP HER CO2 LEVELS DOWN WHILE USING IT. FOR TONIGHT SHE IS TO USE HER BIPAP WHEN AT REST AND DURING NAPS. SHE CAN USE HER NASAL CANNULA ALL OTHER TIMES. FAMILY IS PRESENT AT BEDSIDE FOR MOST OF DAY AND PT'S NEEDS ARE MET BY THEM. SHE USES CALL LIGHT APPROPRIATELY AND IS ABLE TO MAKE HER NEEDS KNOWN. WILL CONTINUE TO MONITOR THIS PATIENT UNTIL REPORT AND HAND OFF TO NOC SHIFT RN.
--- NOTE | 2019-05-14 00:31 | NUR ---
PCU NOC SHIFT NOTE PATIENT ALERT AND ORIENTED X4; PATIENT IS ON HOME DOSE OF OXYGEN AT 3 LPM NC SITTING UP IN CHAIR AT BEGINNING HALF OF SHIFT - PATIENT TOLERATED SITTING UP WELL WITH NO RESPIRTORY OR OTHERWISE DISTRESS NOTED. PATIENTS HEART RATE REMAINS IN AFIB 80-110 WITH NO EVENTS PER MANGANESE HEATER AT THIS TIME. PATIENT HAS SUPERIOR MORBID OBESIDY - PATIENT HAS BEEN EDUCATED TO DIET AND EXERCISE VERSE DISEASE PROCESS AND HER WELL FAMILY HAVE VERBALIZED UNDERSTAND (LAST ADMIT WELL THIS ADMIT) AND PATIENT REMAINS NONCOMPLIANT WITH DIET AND EXERCISE WILL CONTINUE TO REINFORCE. PATIENT IS PLEASANT AND COOPERATIVE WITH CARE. PATIENT GIVEN BEDBATH IN CHAIR AND WITH STAND AT BEDSIDE, PATIENT WAS ABLE TO MINIMALLY HELP WITH CLEANING HERSELF. PATIENT TRANSFERED BACK TO UNIT BED AND PLACED ON BIPAP AT THIS TIME WITH FIO2 AT 35%. PATIENT IS RESTING COMFORTABLY AND THIS TIME AND DENIES ANY NEEDS. WILL CONTINUE TO MONITOR.
[2019-05-14 03:58] LABS: Base Excess Venous 22.7 mmol/L; Bicarbonate Venous 44.3 mmol/L (24.0-30.0); PCO2 Venous 59.5 mmHg (38-42)
--- NOTE | 2019-05-14 06:31 | NUR ---
PCU NOC SHIFT SUMMARY PATIENT REMAINS ALERT AND ORIENED X4 T/O SHIFT. PATIENT WORE BIPAP T/O SHIFT DURING SLEEP AND TOLERATED WELLL ABG CONITUNES TO GET BETTER - PATIENT ON 3 LPM NC HOME DOSE OXYGEN WHEN NOT ON BIPAP. PATIENT DENIES ANY PAIN T/O SHIFT. PATIENT HAS PANG CATH IN PLACE THAT COULD BE REMOVED PATENT IS NOT PIVOT TRANSFERING FROM UNIT BET TO RECLINER. ABG CONTINUES TO IMPROVE. NO ACUTE EVENTS OVER NIGHT - PATIENT DID CONVERT TO NSR AT APPROX 0545 FROM AFIB AT 110.
--- NOTE | 2019-05-14 18:36 | NUR ---
SHIFT SUMMARY PT RESTING IN THE RECLINER THE MAJORITY OF THE DAY. VSS. ALERT AND ORIENTED X3. LUNG SOUNDS DIMINISHED THROUGHOUT. NSR WITH PACs RATE 62 ON TELEMETRY. NYSTATIN TO PANNUS AREA X1. REFUSED AFTERNOON ADMINISTRATION. 2+ PITTING EDEMA TO BLE. REDNESS NOTED TO BLE. FAMILY AT BEDSIDE THROUGHOUT THE DAY. WILL CONTINUE TO MONITOR.
[2019-05-15 04:04] LABS: Hematocrit 33.7 % (33.0-51.0); Mean Corpuscular HGB 28.6 pg (26.0-34.0); Mean Corpuscular HGB Conc 29.7 g/dL (31.5-36.5); Mean Corpuscular Volume 96 fL (80-100); Mean Platelet Volume 10.3 fL (9.1-12.4); Platelet Count 145 K/mm3 (150-400); RDW Coefficient Variation 14.3 % (11.7-14.2); RDW Standard Deviation 50.4 fL (35.1-46.3); White Blood Cell Count 6.27 K/mm3 (4.00-11.30)
[2019-05-15 04:23] LABS: Bun/Creatinine Ratio 34.5 (12.0-20.0); Calcium, Blood 8.8 mg/dL (8.5-10.1); Creatinine, Blood 1.1 mg/dL (0.40-1.00); Potassium, Blood 4.4 mmol/L (3.5-5.5)
--- NOTE | 2019-05-15 04:56 | NUR ---
PCU NO SHIFT SUMMARY PATIENT REMAINED ALERT AND ORIENTED X4 T/O SHIFT. PATIENT ABLE TO STAND AND 'SHUFFLE' FROM CHAIR TO BED WITH STEADY MOVEMENTS. PATIENT ON 2-3 LPM NC WHEN AWAKE AND WORE HER HOME VENT WITH FACEMASK WHILE SLEEPING T/O SHIFT (CONTINUES TO BE IN PLACE AT THIS TIME). PATIENT HAS SEVERE YEAST/MOISTURE IN BREAST/ABD/PANIS/GROIN FOLDS - PATIENT GIVEN BATH AND DRIED WELL FINISHING WITH NYSTATIN APPLICATION THIS SHIFT. PATIENT DENIES ANY PAIN T/O SHIFT. BLE SWOLLEN AND WITH RASH/CELLULITIS SKIN TO SHINS/CALFS. PATIENT EDUCATED MULTIPLE TIME WITH FAMILY PRESENT ON DIET, FLUID BALANCE AND CHF - PATIENT VERBALIZED UNDERSTANDING. VSS T/O SHIFT. PATIENT REMAINS IN NSR T/O SHIFT WITH NO EVENTS NOTED PER SOUND EFFECTS MANAGER. WILL CONTINUE TO MONITOR AND REPORT TO DAYSHIFT RN - CALL LIGHT W/I REACH.
[2019-05-15 05:36] LABS: PCO2 Arterial 66.1 mmHg (35-45); PO2 Arterial 62.3 mmHg (80-100); pH Blood Arterial 7.46 (7.35-7.45)
--- NOTE | 2019-05-15 17:48 | NUR ---
SHIFT SUMMARY PT RESTING IN BED AND RECLINER THROUGHOUT THE DAY. UP TO BATHROOM FOR SHOWER IN SHOWER CHAIR THIS AFTERNOON. DENIES PAIN THROUGHOUT THE DAY. VSS. ALERT AND ORIENTED X3. SINUS PILAR TO NSR RATE 50-62 TODAY, EVENING DOSE OF COREG HELD D/T BRADYCARDIA. 2+ PITTING EDEMA TO BLE, REDNESS NOTED TO BLE, LOTION APPLIED. NYSTATIN POWDER APPLIED AFTER SHOWER TO FOLDS AND UNDER PANNUS. WILL CONTINUE TO MONITOR.
[2019-05-16 03:49] LABS: Bun/Creatinine Ratio 31.7 (12.0-20.0); Calcium, Blood 8.7 mg/dL (8.5-10.1); Creatinine, Blood 1.01 mg/dL (0.40-1.00); Potassium, Blood 4.5 mmol/L (3.5-5.5)
--- NOTE | 2019-05-16 04:50 | NUR ---
SHIFT SUMMARY: PATIENT FELT COMFORTABLE ON THE TRILOGY THIS SHIFT, WORE IT WHILE SLEEPING, MAINTAINED O2 SATURATION >90%. VSS, CALL LIGHT WITHIN REACH, BED LOW AND LOCKED.
--- NOTE | 2019-05-16 07:20 | NUR ---
NURSING PCU DAYSHIFT: Assumed care of pt at approx 0700. Very pleasant, cooperative w/care. Denies any pain/discomfort. General weakness present and requires some assistance w/repositioning, chronic numbness of b/l feet. Skin is fragile, redness noted to folds, BLE red/warm. Tele in place SB w/HR 50's, no c/o CP/pressure, SBP 120's, BLE edema. L/S with EW t/o, dyspnea w/exertion, respirations shallow O2 sat low 90's on 2L NC, uses home triology during sleep, continuous bedside O2 monitoring, occ dry/SALES EXPERT cough. Abd distended which pt states is normal, BT+, voiding w/o difficulty per pt. Pt denies any current needs or questions regarding plan of care. Hopeful for discharge home today. Awaiting rounding from PMD. Currently sitting on edge of bed, call light in reach, cont to monitor for any changes.
--- NOTE | 2019-05-16 09:03 | NUR ---
NURSING PCU DISCHARGE SUMMARY: No acute changes noted t/o the a.m. Seen by PMD, discharge home d/o received. Rx's to be called to [facility] pharmacy per pt request. No s/s of acute distress, pt denies any questions regarding discharge plan. Will escort from unit via w/c when transportation arrives, continue to monitor until discharge is completed.
[2019-05-16] MEDS ORDERED: ALBU2.5V5 INH ×2 (10:40→10:42)
[2019-05-16] MEDS ORDERED: TORSEMIDE PO (11:06)
== END 2019-05-16 12:59 | disposition home or self-care (01) | DRG 291 ==
LOC: ER 16:31 → MEDS 20:00 → PCU 05-11 13:37
PROVIDERS: Hospitalist; Internal Medicine; Internal Medicine Critical Care Medicine; Physician Assistant; ADMIT Internal Medicine
PROC: 5A09357 Assistance with Respiratory Ventilation, Less than 24 Consecutive Hours, Continuous Positive Airway Pressure (ICD-10-PCS; principal; 2019-05-09)
DX: I13.0 Hypertensive heart and chronic kidney disease with heart failure and stage 1 through stage 4 chronic kidney disease, or unspecified chronic kidney disease (principal); I50.33 Acute on chronic diastolic (congestive) heart failure; J96.21 Acute and chronic respiratory failure with hypoxia; J96.22 Acute and chronic respiratory failure with hypercapnia; E66.2 Morbid (severe) obesity with alveolar hypoventilation; Z68.44 Body mass index [BMI] 60.0-69.9, adult; N18.3 Chronic kidney disease, stage 3 (moderate); G83.9 Paralytic syndrome, unspecified; I27.20 Pulmonary hypertension, unspecified; I48.0 Paroxysmal atrial fibrillation; J44.9 Chronic obstructive pulmonary disease, unspecified; E03.9 Hypothyroidism, unspecified; E11.22 Type 2 diabetes mellitus with diabetic chronic kidney disease; D63.1 Anemia in chronic kidney disease; G25.81 Restless legs syndrome; Z99.81 Dependence on supplemental oxygen
CPT/HCPCS: 0099U; 36415; 36600; 71046; 71250; 76604; 80048; 80053; 80069; 81001; 82803; 83036; 83735; 83880; 84100; 84145; 84484; 85025; 85027; 87086; 93005; 93010; 93308; 93321; 94640; 94660; 94760; 94762; 96374; 99285-25; A9270; J1940; J2405

== ENCOUNTER → 2019-12-05 | Outpatient (CLI) | payer MEDICARE, OTHER ==
[~2019-12-05] MED LIST changes: +TORSEMIDE PO
[2019-12-05 12:59] LABS: Source, Urine Clean Catch
[2019-12-05 13:45] LABS: Appearance, Urine Clear (Clear); Bilirubin, Urine Neg (Neg); Blood, Urine Neg (Neg); Color, Urine Yellow (P-Yellow); Glucose Qualitative, Urine Neg (Neg); Ketones, Urine Neg (Neg); Leukocyte Esterase, Urine Neg (Neg); Nitrite, Urine Neg (Neg); Protein, Urine Neg (Neg); Specific Gravity, Urine 1.015 (1.003-1.022); Urobilinogen, Urine NORM (Normal)
[2019-12-05 17:28] LABS: Creatinine, Urine Random 28.3 mg/dL (27.00-270.00); Protein, Urine Random 5.3 mg/dL (0.0-11.9)
== END | disposition home or self-care (01) ==
LOC: LAB SHORT 12:56 → OLS 12:56
PROVIDERS: Internal Medicine
DX: Z00.01 Encounter for general adult medical examination with abnormal findings (principal); N18.3 Chronic kidney disease, stage 3 (moderate)
CPT/HCPCS: 81003; 81050; 82570; 84156

== ENCOUNTER → 2020-01-15 | Outpatient (CLI) | payer MEDICARE, OTHER | LOC: LAB SHORT 18:22 → LAB 18:22 | DX: L08.9 Local infection of the skin and subcutaneous tissue, unspecified (principal) | CPT/HCPCS: 87070; 87147; 87205 ==

== ENCOUNTER 2020-09-09 16:28 | Inpatient (IN) | payer MEDICARE, OTHER ==
[~2020-09-09] VITALS: Ht 165.1 cm; Wt 144.1 kg
[~2020-09-09 16:28] MED LIST changes: -CARV25 PO; -LIOT5 PO; -Mirapex1 MG PO; -POTCHL20ER PO; -SPIR25 PO; -TORSEMIDE PO
[2020-09-09 16:45] LABS: BASOPHILS ABSOLUTE AUTO 0.03 K/mm3 (0.00-0.23); BASOPHILS PERCENT AUTO 0 % (0-2); EOSINOPHILS ABSOLUTE AUTO 0.05 K/mm3 (0.00-0.68); EOSINOPHILS PERCENT AUTO 1 % (0-6); Hematocrit 40.7 % (33.0-51.0); Hemoglobin 11.1 g/dL (11.5-16.0); IMMATURE GRAN ABSOLUTE AUTO 0.22 K/mm3 (0.00-0.10); IMMATURE GRAN PERCENT AUTO 3 % (0-1); LYMPHOCYTES ABSOLUTE AUTO 0.63 K/mm3 (0.84-5.20); LYMPHOCYTES PERCENT AUTO 8 % (21-46); MONOCYTES ABSOLUTE AUTO 0.29 K/mm3 (0.16-1.47); MONOCYTES PERCENT AUTO 4 % (4-13); Mean Corpuscular HGB 28.1 pg (26.0-34.0); Mean Corpuscular HGB Conc 27.3 g/dL (31.5-36.5); Mean Corpuscular Volume 103 fL (80-100); Mean Platelet Volume 10.3 fL (9.1-12.4); NEUTROPHILS ABSOLUTE AUTO 7.05 K/mm3 (1.96-9.15); NEUTROPHILS PERCENT AUTO 85 % (41-73); Platelet Count 121 K/mm3 (150-400); RDW Coefficient Variation 14.2 % (11.7-14.2); RDW Standard Deviation 53.7 fL (35.1-46.3); Red Blood Cell Count 3.95 M/mm3 (3.80-5.20); White Blood Cell Count 8.27 K/mm3 (4.00-11.30)
[2020-09-09 16:45] LABS: PO2 Arterial 100 mmHg (80-100); pH Blood Arterial 7.13 (7.35-7.45)
[2020-09-09 16:46] LABS: PCO2 Arterial > 105 mmHg (35-45)
[2020-09-09 17:06] LABS: Troponin I <0.015 ng/mL (0.000-0.040)
[2020-09-09 17:13] LABS: Alanine Aminotransfer (ALT/SGP 22 U/L (12-78); Albumin, Blood 3.3 g/dL (3.4-5.0); Albumin/Globulin Ratio 0.6 (0.8-1.8); Alk Phos 131 U/L (50-136); Anion Gap -1 mmol/L (6-16); Aspartate Aminotrans (AST/SGOT 20 U/L (12-37); Bilirubin, Total 0.3 mg/dL (0.1-1.0); Blood Urea Nitrogen 72 mg/dL (8-24); Bun/Creatinine Ratio 57.1 (12.0-20.0); CO2, Blood 39 mmol/L (21-32); Calcium, Blood 9.1 mg/dL (8.5-10.1); Chloride, Blood 99 mmol/L (98-108); Creatinine, Blood 1.26 mg/dL (0.40-1.00); Globulin, Blood 5.8 g/dL (2.2-4.0); Glomerular Filtration Rate 44 (60-); Glucose, Blood 173 mg/dL (70-99); Sodium, Blood 137 mmol/L (136-145); Total Protein, Blood 9.1 g/dL (6.4-8.2)
[2020-09-09 18:09] LABS: PCO2 Arterial 101 mmHg (35-45); PO2 Arterial 71.6 mmHg (80-100); pH Blood Arterial 7.22 (7.35-7.45)
[2020-09-09] MEDS ORDERED: Mirapex1 MG PO (18:15)
[2020-09-09] MEDS ORDERED: CARV25 PO (18:15)
[2020-09-09] MEDS ORDERED: POTCHL20ER PO (18:15)
[2020-09-09] MEDS ORDERED: TORSE20 PO (18:16)
[2020-09-09] MEDS ORDERED: LIOT5 PO (18:16)
[2020-09-09] MEDS ORDERED: SPIR25 PO (18:16)
[2020-09-09] MEDS ORDERED: XARELTO15 MG PO (18:16)
[2020-09-09] MEDS ORDERED: METO5 PO (18:16)
[2020-09-09 20:35] LABS: PO2 Arterial 79.2 mmHg (80-100); pH Blood Arterial 7.31 (7.35-7.45)
[2020-09-09 20:35] LABS: Adenovirus Not Detected (NOT DETECT); Bordetella pertussis Not Detected (NOT DETECT); Chlamydophila pneumoniae Not Detected (NOT DETECT); Coronavirus 229E Not Detected (NOT DETECT); Coronavirus HKU1 Not Detected (NOT DETECT); Coronavirus NL63 Not Detected (NOT DETECT); Coronavirus OC43 Not Detected (NOT DETECT); Human Metapneumovirus Not Detected (NOT DETECT); Human Rhinovirus/Enterovirus Not Detected (NOT DETECT); Influenza A/2009-H1 Not Detected (NOT DETECT); Influenza A/H1 Not Detected (NOT DETECT); Influenza A/H3 Not Detected (NOT DETECT); Influenza B Not Detected (NOT DETECT); Mycoplasma pneumoniae Not Detected (NOT DETECT); Parainfluenza Virus 1 Not Detected (NOT DETECT); Parainfluenza Virus 2 Not Detected (NOT DETECT); Parainfluenza Virus 3 Not Detected (NOT DETECT); Parainfluenza Virus 4 Not Detected (NOT DETECT); Respiratory Syncytial Virus Not Detected (NOT DETECT); SARS-Cov-2 (COVID-19), BioFire Not Detected (NOT DETECT)
[2020-09-09 20:47] LABS: Source, Urine Catheter
[2020-09-09 20:50] LABS: Appearance, Urine Clear (Clear); Bilirubin, Urine Neg (Neg); Blood, Urine Neg (Neg); Color, Urine Yellow (P-Yellow); Glucose Qualitative, Urine Neg (Neg); Ketones, Urine Neg (Neg); Leukocyte Esterase, Urine Neg (Neg); Nitrite, Urine Neg (Neg); Protein, Urine Neg (Neg); Urobilinogen, Urine NORM (Normal)
--- NOTE | 2020-09-09 21:00 | NUR ---
ASSUMED PT CARE PT ARRIVES TO ICU ROOM 7 FROM ED AT 2004. MULT STAFF AT BEDSIDE FOR TRANSFER TO ICU BED, RT AT BEDSIDE FOR BIPAP. SETTINGS 21/08/, PT TOLERATING WELL, SATS >92%, LUNG SOUNDS WHEEZY AND CRACKLES NOTED. PT TACHYPNEAIC. PT ABLE TO COME OFF BIPAP TO TAKE PO MEDS, PT DESATS TO LOW 80S. PT RECOVERS WELL. PT HR SINUS PILAR PER MONITOR. BP WNL. SKIN OVERALL C/D/I. SOME REDNESS WITH NO BREAKDOWN TO BUTTOCKS. PT ARRIVES SATURATED IN URINE. PT CLEANED, SOILED LINENS REMOVED, TEMP PROBE PANG PLACED, IMMEDIATE URINE RETURN. PT GIVES VERBAL CONSENT FOR RELEASE OF INFORMATION TO FAMILY AND TO RECEIVE BLOOD SHOULD SHE NEED IT. PT HAS 20G TO LEFT AC, 20G TO RIGHT FA, NEW 20G PLACED TO LEFT WRIST. DRESSINGS C/D/I. SITES WNL. PT ABLE TO MOVE ARMS WNL, DECREASED ROM TO LEGS. 2+ EDEMA TO BLE. ABD SOFT, LARGE ABD HERNIA NOTED. BOWEL TONES WNL. PT ALERT AND ORIENTED. FOLLOWS DIRECTIONS. ORIENTED TO CALL LIGHT AND ROOM. SEE FULL ADMIT ASSESSMENTS.
[2020-09-09 21:44] LABS: Bun/Creatinine Ratio 56.2 (12.0-20.0); Calcium, Blood 9.6 mg/dL (8.5-10.1); Creatinine, Blood 1.28 mg/dL (0.40-1.00); Free Thyroxine 0.79 ng/dL (0.70-1.60); Magnesium, Blood 2.5 mg/dL (1.6-2.4); Phosphorus, Blood 4.3 mg/dL (2.5-4.9); Potassium, Blood 6.6 mmol/L (3.5-5.5); Thyroid Stimulating Hormone 6.94 uIU/mL (0.360-4.800)
[2020-09-10 01:47] LABS: Bun/Creatinine Ratio 60.9 (12.0-20.0); Calcium, Blood 9.6 mg/dL (8.5-10.1); Creatinine, Blood 1.15 mg/dL (0.40-1.00); Potassium, Blood 6.7 mmol/L (3.5-5.5)
[2020-09-10 03:45] LABS: PCO2 Arterial 64.3 mmHg (35-45); PO2 Arterial 67.9 mmHg (80-100); pH Blood Arterial 7.41 (7.35-7.45)
[2020-09-10 05:05] LABS: BASOPHILS ABSOLUTE AUTO 0.01 K/mm3 (0.00-0.23); BASOPHILS PERCENT AUTO 0 % (0-2); EOSINOPHILS PERCENT AUTO 0 % (0-6); Hemoglobin 9.9 g/dL (11.5-16.0); IMMATURE GRAN ABSOLUTE AUTO 0.07 K/mm3 (0.00-0.10); IMMATURE GRAN PERCENT AUTO 1 % (0-1); LYMPHOCYTES PERCENT AUTO 5 % (21-46); MONOCYTES ABSOLUTE AUTO 0.06 K/mm3 (0.16-1.47); MONOCYTES PERCENT AUTO 1 % (4-13); Mean Corpuscular HGB 28.3 pg (26.0-34.0); Mean Corpuscular HGB Conc 29.1 g/dL (31.5-36.5); Mean Platelet Volume 10.5 fL (9.1-12.4); NEUTROPHILS PERCENT AUTO 93 % (41-73); Platelet Count 134 K/mm3 (150-400); RDW Coefficient Variation 14.4 % (11.7-14.2); RDW Standard Deviation 50.4 fL (35.1-46.3); White Blood Cell Count 7.94 K/mm3 (4.00-11.30)
[2020-09-10 05:35] LABS: Magnesium, Blood 2.3 mg/dL (1.6-2.4); Phosphorus, Blood 3.6 mg/dL (2.5-4.9)
[2020-09-10 05:56] LABS: Mean Corpuscular Volume 97 fL (80-100)
[2020-09-10 06:13] LABS: Calcium, Blood 9.6 mg/dL (8.5-10.1); Creatinine, Blood 1.19 mg/dL (0.40-1.00)
[2020-09-10 06:15] LABS: Potassium, Blood 6.5 mmol/L (3.5-5.5)
--- NOTE | 2020-09-10 07:00 | NUR ---
SHIFT SUMMARY PT REMAINS ALERT TO SELF ONLY. PT NOW CONFUSED TO SITUATION AND PLACE. LESS RESPONSIVE TO STIMULI. PT HAS 20G TO LEFT AC, 20G TO RIGHT FA, 20G TO LEFT WRIST. SITES WNL. DRESSINGS C/D/I. TEMP PROBE PANG DRAINING CLEAR YELLOW URINE. PT TEMP IMPROVED THROUGH SHIFT (INITIAL TEMP 91, GRADUALLY WARMED PT TO CURRENT TEMP OF 96.8 WITH USE OF BEAR HUGGER). BEAR HUGGER ON STANDBY. PT BP REMAINS STABLE, HR SB IN THE 50S. PT LUNG SOUNDS CONTINUE TO BE WHEEZY AND COARSE. POTASSIUM CONTINUES TO BE ELEVATED, DR MCKEON MANAGING TREATMENTS AT THIS TIME. PLAN FOR RENAL U/S TODAY, MULT LABS, ADDITIONAL DOSING OF INSULING AND D50. PT C/O SEVERE LEG PAIN R/T RLS. PER DR GUY HE DOESNT WANT FENTANYL TO BE CONTINUED (NO ORDERS TO D/C MEDICATION HOWEVER). BIPAP SETTINGS 21/08/, SATS >92%. PT NPO AND ALSO DR MCKEON WANTS TO MAKE SURE PO FLUID RESTRICTION OF 1000ML ENFORCED. WILL REPORT TO ONCOMING RN.
[2020-09-10 10:01] LABS: Base Excess Venous 17.9 mmol/L; Bicarbonate Venous 39.5 mmol/L (24.0-30.0); PCO2 Venous 59.3 mmHg (38-42); PO2 Venous 58.7 mmHg (38-42); pH Blood Venous 7.46 (7.34-7.37)
[2020-09-10 10:35] LABS: Bun/Creatinine Ratio 55.8 (12.0-20.0); Calcium, Blood 9.6 mg/dL (8.5-10.1); Creatinine, Blood 1.29 mg/dL (0.40-1.00)
--- NOTE | 2020-09-10 10:35 | NUR ---
ASSUMED CARE AT 0700 PT LAYING IN BED WITH BIPAP MASK ON WITH SETTINGS 22/10, RR 14, FIO2 30%. PT IS CONFUSED ABOUT WHERE SHE IS BUT IS EASILY REDIRECTED. PANG PATENT AND DRAINING TO GRAVITY. HR 52. BP 124/48. TEMP 98.9. SEE SHIFT ASSESSMENT FOR FULL ASSESSMENT.
[2020-09-10 10:39] LABS: Potassium, Blood 6.2 mmol/L (3.5-5.5)
[2020-09-10 16:51] LABS: Base Excess Venous 19.4 mmol/L; Bicarbonate Venous 41.3 mmol/L (24.0-30.0); PCO2 Venous 55.4 mmHg (38-42); PO2 Venous 129 mmHg (38-42)
--- NOTE | 2020-09-10 18:06 | NUR ---
END OF SHIFT SUMMARY PT IS CONFUSED AND IS ALERT TO SELF AND FAMILY AND ONLY SOMETIMES TO LOCATION. PT HAD SOME VISUAL HALLUCINATIONS DURING SHIFT BUT WAS ABLE TO BE REDIRECTED BY DAUGHTER AND RN. PT SWICHED BETWEEN BIPAP AND 3L NC WITH O2 SAT >90%. HR 45-67. SBP 104-160. PANG IN PLACE AND DRAINING TO GRAVITY. 24HR URINE COLLECTION STARTED AT 0825 TODAY. WILL REPORT TO PM RN WHEN AVAIALABLE.
--- NOTE | 2020-09-10 19:45 | NUR ---
ASSUMED PT CARE BEDSIDE REPORT WITH CEE RN AND VICKIE RN. PT ALERT AND ORIENTED TO SELF. CONFUSED TO SITUATION AND PLACE. DAUGHTER AT BEDSIDE (TERE) LEAVING FOR THE NIGHT. PT PLEASANT AND COOPERATIVE. EATING A SNACK. PT ON 3L NC, SATS >92%. PT LUNG SOUNDS WHEEZY AND DIMINISHED. DR GUY SET UP PTS HOME TRILOGY UNIT FOR HOSP USE. PT HAS 20G TO LEFT WRIST, SL, AND 20G TO LEFT AC, SL. BOTH FLUSH WELL, DRESSINGS C/D/I. SITES WNL. PT HAS TEMP PROBE PANG DRAINING CLEAR YELLOW URINE. SPECIMEN/BAG ON ICE FOR 24HR URINE COLLECTION. PT AFEBRILE. PT BP STABLE, HR 50S SB. PT DENIES CP. PT TOLERATING PO. CALL LIGHT IN REACH. SEE FULL SHIFT ASSESSMENT.
[2020-09-10 20:51] LABS: Bun/Creatinine Ratio 51.4 (12.0-20.0); Calcium, Blood 9.5 mg/dL (8.5-10.1); Creatinine, Blood 1.44 mg/dL (0.40-1.00); Potassium, Blood 5.1 mmol/L (3.5-5.5)
[2020-09-11 03:31] LABS: Base Excess Venous 21.4 mmol/L; Bicarbonate Venous 43.4 mmol/L (24.0-30.0); PCO2 Venous 54.5 mmHg (38-42); PO2 Venous 105 mmHg (38-42); pH Blood Venous 7.52 (7.34-7.37)
[2020-09-11 03:35] LABS: BASOPHILS ABSOLUTE AUTO 0.01 K/mm3 (0.00-0.23); BASOPHILS PERCENT AUTO 0 % (0-2); EOSINOPHILS ABSOLUTE AUTO 0.03 K/mm3 (0.00-0.68); EOSINOPHILS PERCENT AUTO 0 % (0-6); Hematocrit 30.6 % (33.0-51.0); Hemoglobin 9.4 g/dL (11.5-16.0); IMMATURE GRAN ABSOLUTE AUTO 0.03 K/mm3 (0.00-0.10); IMMATURE GRAN PERCENT AUTO 0 % (0-1); LYMPHOCYTES ABSOLUTE AUTO 1.26 K/mm3 (0.84-5.20); LYMPHOCYTES PERCENT AUTO 14 % (21-46); MONOCYTES ABSOLUTE AUTO 0.64 K/mm3 (0.16-1.47); MONOCYTES PERCENT AUTO 7 % (4-13); Mean Corpuscular HGB 28.8 pg (26.0-34.0); Mean Corpuscular HGB Conc 30.7 g/dL (31.5-36.5); Mean Corpuscular Volume 94 fL (80-100); Mean Platelet Volume 10.5 fL (9.1-12.4); NEUTROPHILS ABSOLUTE AUTO 7.23 K/mm3 (1.96-9.15); NEUTROPHILS PERCENT AUTO 79 % (41-73); Platelet Count 120 K/mm3 (150-400); RDW Coefficient Variation 14.7 % (11.7-14.2); RDW Standard Deviation 50.5 fL (35.1-46.3); Red Blood Cell Count 3.26 M/mm3 (3.80-5.20)
[2020-09-11 04:00] LABS: Albumin, Blood 2.6 g/dL (3.4-5.0); Albumin/Globulin Ratio 0.6 (0.8-1.8); Bilirubin, Total 0.4 mg/dL (0.1-1.0); Bun/Creatinine Ratio 50.7 (12.0-20.0); Calcium, Blood 9.5 mg/dL (8.5-10.1); Creatinine, Blood 1.46 mg/dL (0.40-1.00); Globulin, Blood 4.6 g/dL (2.2-4.0); Magnesium, Blood 2.1 mg/dL (1.6-2.4); Phosphorus, Blood 3.1 mg/dL (2.5-4.9); Potassium, Blood 4.7 mmol/L (3.5-5.5); Total Protein, Blood 7.2 g/dL (6.4-8.2)
--- NOTE | 2020-09-11 06:00 | NUR ---
SHIFT SUMMARY PT HAD GOOD EVENING, SLEPT WELL. TOLERATING NC AND AVAPS. SATS >90% ON 3L. PT LUNG SOUNDS WHEEZY AND DIMINISHED. PT BP WNL, HR SB TO SR. PT HAS TEMP PROBE PANG DRAINING CLEAR YELLOW URINE (24HR URINE COLLECTION IN PROCESS). SKIN INTACT. 20G TO LEFT AC SL AND 20G TO LEFT WRIST SL, BOTH SITES WNL, DRESSING C/D/I. PT TOLERATING PO. ON PO FLUID RESTRICTION OF 1000ML. ABD SOFT, NONTENDER. BOWEL TONES WNL. BED LOW, CALL LIGHT IN REACH. WILL REPORT TO ONCOMING SHIFT.
--- NOTE | 2020-09-11 06:39 | NUR ---
DR MCKEON TO ROOM FOR EVAL.
--- NOTE | 2020-09-11 07:30 | NUR ---
PT OREINTED TO PERSON, PLACE, SURROUNDINGS, AND SITUATION. RE-ORIENTED TO DATE AND TIME WITH VERBAL PROMPTS. PT DENIES PAIN. DAVIS, BUT VERY DECONDITIONED AND SOB WITH EXERTION. ECG SHOWS SB WITH RATE 50-60'S. BP WNL. LUNGS DIMINISHED AND TIGHT THROUGH OUT.WZ AND SOB WITH EXERTION. OCCASIONAL, MOIST, NONPRODUCTIVE COUGH NOTED. SATS>92% ON 3 LITERS NASAL CANULA. CBG 97. TOLERATING ADA DIET WELL. NYSTATIN APPLIED TO REDDENED AREAS-SKIN FOLDS/SANDRA AREA. PANG TO BEDSIDE DRAINAGE WITH MODERATE AMOUNT OF DARK, YELLOW URINE WITH SEDIMENT. LOWER EXTREMITIES WITH DEPENDENT EDEMA AND APPEARS DRY AND FLAKY. ANTICIPATE PT/OT EVAL AND STATUS CHANGE LATER TODAY.
--- NOTE | 2020-09-11 09:31 | NUR ---
PT NOW MED TELE STATUS. OT HERE TO EVALUATE PT. 24 HOUR URINE RE-STARTED @0900. DR. MCKEON AWARE.
--- NOTE | 2020-09-11 11:04 | NUR ---
PT SITTING UP IN CHAIR WATCHING TV WITHOUT NOTED DISTRESS. REPORT PHONED TO AMADOR ROMANO IN PREP TO TRANSFER PT TO ROOM 331.
--- NOTE | 2020-09-11 19:07 | NUR ---
SHIFT SUMMARY PT IS AOX4. PT DENIES PAIN, N/V. PT C/O DYSPNEA ON EXERTION AND AT TIMES WHILE IN BED. PT IS 2 PERSON MAX ASSIST FOR TRANSFERS WITH POSSIBLE LIFT WHILE IN BED FOR REPOSITIONING. PT WORKED WITH PT TODAY WHO STATES SHE IS 2 PERSON ASSIST WITH FWW AND GAIT BELT. PT FAMILY IN ROOM THIS VALERIE. PT IS IN BED, CALL LIGHT IN REACH, BED IN LOW POSITION.
--- NOTE | 2020-09-11 20:05 | NUR ---
ASSUMED CARE. AOX3, COOPERATIVE, USES CALL LIGHT APPROPRIATLY. DENIES PAIN OR DISCOMFORT. LUNG SOUNDS TIGHT AND DIMINISHED, SATS ON CONTINUOUS BIOX 92% BUT SHE DOES DROP OCCATIONALLY TO 88% ON 3 LITERS. GETS REAL SOB WHEN SHE MOVES EVEN A LITTLE. LARGE ABDOMINAL HERNIA PROTRUDING AND PRESSING UP. LARGE ABDOMIN, ROUND SOFT. NO PAIN NOTED. BLE EDEMA. MOVES VERY LITTLE. REDNESS IN PANUS AND GROIN. IV'S TO LEFT FA AND HAND. CALL LIGHT IN REACH.
--- NOTE | 2020-09-12 02:17 | NUR ---
ROUNDED ON PATIENT, NOTICED HER CATHETER BAG WAS MORE RED IN COLOR INSTEAD OF ORANGE. CHECKED AND THERE IS A MIXTURE OF BLOOD AND URINE IN THE BAG. CHECKED TO MAKE SURE IT WAS NOT PULLED ON, IT WAS SECURE TO HER LEG. WILL MONITOR TO SEE IF IT WILL CLEAR UP, IF NOT WILL CALL MD.
[2020-09-12 05:03] LABS: Hematocrit 35.3 % (33.0-51.0); Hemoglobin 10.2 g/dL (11.5-16.0)
--- NOTE | 2020-09-12 05:08 | NUR ---
SHIFT SUMMARY: ANALILIA AOX3, LUNG SOUNDS DIMINISHED T/O, SEVERE SOB WITH EVEN THE SLIGHT MOVMENT, UNABLE TO LAY DOWN, SATS REMAINED 89-92% ON 3 LITERS. ON HER TRILOGY WE HAD TO INCREASE HER OXYGEN TO 4 LITERS DUE TO DESATING DOWN TO 80%. BLE EDEMA 3+, KEPT LEGS ELEVATED MUCH WE COULD. CATHETER DRAINED ORANGE URINE AT START OF SHIFT, LATER IN THE NIGHT SHE STARTED TO HAVE BLOOD IN HER URINE. CALLED RED HAT ENGINEER, DR. BARRETT WHO ORDERED TO HOLD XARELTO THIS AM. 24 HOUR URINE IS BEING COLLECTED PER ORDERS. REDNESS IN PERIAREA. VS WNL. AFEBRILE. CALL LIGHT IN REACH.
[2020-09-12 05:23] LABS: Albumin, Blood 2.8 g/dL (3.4-5.0); Anion Gap 3 mmol/L (6-16); Blood Urea Nitrogen 71 mg/dL (8-24); CO2, Blood 41 mmol/L (21-32); Calcium, Blood 9.4 mg/dL (8.5-10.1); Chloride, Blood 96 mmol/L (98-108); Creatinine, Blood 1.65 mg/dL (0.40-1.00); Glomerular Filtration Rate 32 (60-); Glucose, Blood 106 mg/dL (70-99); Magnesium, Blood 2.1 mg/dL (1.6-2.4); Phosphorus, Blood 3.3 mg/dL (2.5-4.9); Potassium, Blood 4.1 mmol/L (3.5-5.5); Sodium, Blood 140 mmol/L (136-145)
[2020-09-12 13:24] LABS: Protein, Urine Quantitative 75.1 mg/dL (0.0-11.9)
--- NOTE | 2020-09-12 17:24 | NUR ---
PATIENT HAS BEEN PLEASANT AND COOPERATIVE WITH STAFF. DENIES PAIN AND DISCOMFORT THIS SHIFT. VITALS HAVE BEEN STABLE WITH THE EXCEPTION OF SOME INSTABILITY WITH HER HR AND GOING TACHY AT TIMES. TWO PERSON MAX ASSIST WITH FWW AND GAIT BELT FOR TRANSFERS TO THE [facility] [place]. PANG CONTINUES TO DRAIN TO GRAVITY AND IS DARK RED/BLOOD. 24HR URINE SENT TO LAB. BLOOD SUGARS HAVE BEEN IN THE MID-100's WITH NO NEED FOR INSULIN. PATIENT IS SLEEPING IN RECLINER AT BEDSIDE AT THIS TIME. WILL CONTINUE TO MONITOR AND PROVIDE CARE NEEDED.
--- NOTE | 2020-09-12 19:40 | NUR ---
ASSUMED CARE. ANALILIA IS UP TO THE CHAIR, RT IS IN THE ROOM FOR BREATHING TREATMENT. LUNG SOUNDS ARE VERY DIMINISHED AND HARD TO HEAR AIR EXCHANGE. STATES SHE FEELS HER SOB HAS IMPROVED A LITTLE BUT SHE STILL DESATS WITH MOVEMENT. CURRENTLY RUNNING 90% ON 3 LITERS. DISCUSSED TRILOGY MACHINE AND NEED TO INCREASE O2 LAST NIGHT WITH ROSITA RT, HE SAID TO LET HIM KNOW AND HE WILL TAKE A LOOK AT IT. EDEMA BLE 2-3. CATHETER HAS TEA COLOR URINE TO REDISH BROWN COLOR. REDNESS UNDER PANUS, POWDER WAS APPLIED. DENIES PAIN. CALL LIGHT IN REACH.
[2020-09-13 05:30] LABS: Hematocrit 33.1 % (33.0-51.0); Hemoglobin 9.7 g/dL (11.5-16.0)
[2020-09-13 06:09] LABS: Albumin, Blood 2.8 g/dL (3.4-5.0); Anion Gap 3 mmol/L (6-16); Blood Urea Nitrogen 66 mg/dL (8-24); Bun/Creatinine Ratio 40.7 (12.0-20.0); CO2, Blood 42 mmol/L (21-32); Calcium, Blood 9.5 mg/dL (8.5-10.1); Chloride, Blood 95 mmol/L (98-108); Creatinine, Blood 1.62 mg/dL (0.40-1.00); Glomerular Filtration Rate 33 (60-); Glucose, Blood 123 mg/dL (70-99); Magnesium, Blood 2.1 mg/dL (1.6-2.4); Phosphorus, Blood 3.2 mg/dL (2.5-4.9); Sodium, Blood 140 mmol/L (136-145)
--- NOTE | 2020-09-13 06:22 | NUR ---
SHIFT SUMMARY: ANALILIA HAD A BETTER NIGHT, WAS UP TO CHAIR FOR WHILE THEN TRANSFERRED TO BED. 2-3 PERSON MAX TRANSFER SHE WAS WEAK SITTING UP. LUNGS STILL REMAIN DIMINISHED AND TIGHT AT TIMES. SLEPT WITH HER TRILOGY MACHINE ON WITH 4 LITERS BLEED IN, DUE TO DESATING TO MID 80'S. SOB WITH EXERTION OF THE MINIMAL MOVEMENT. CATHETER STILL PATENT AND DRAINING BROWNISH RED URINE. EDEMA IN BLE HAS DECREASED. VS WNL, AFEBRILE. FLUID RESTRICTION DONE. NO OTHER CHANGES TO REPORT THIS SHIFT.
--- NOTE | 2020-09-13 19:53 | NUR ---
SHIFT SUMMARY: NO ACUTE EVENTS THIS SHIFT. C/O PAIN IN BLE; MEDICATED WITH TYLENOL WITH SOME RELIEF, BUT REPOSITIONING WORKS BETTER. HEMATURIA EARLIER THIS MORNING, NOW RESOLVED TO CLEAR TEA COLOR. COMPLIANT WITH 1 LITER FLUID RESTRICTION. ON 4 L/MIN NC WITH O2 SAT 89-91%, WITH CONTINUOUS OXIMETRY. APPETITE OK.
[2020-09-14 05:11] LABS: Hematocrit 31.8 % (33.0-51.0); Hemoglobin 9.2 g/dL (11.5-16.0)
[2020-09-14 05:30] LABS: Albumin, Blood 2.3 g/dL (3.4-5.0); Anion Gap 3 mmol/L (6-16); Blood Urea Nitrogen 60 mg/dL (8-24); Bun/Creatinine Ratio 38.5 (12.0-20.0); CO2, Blood 40 mmol/L (21-32); Chloride, Blood 95 mmol/L (98-108); Creatinine, Blood 1.56 mg/dL (0.40-1.00); Glomerular Filtration Rate 35 (60-); Glucose, Blood 95 mg/dL (70-99); Phosphorus, Blood 2.9 mg/dL (2.5-4.9); Potassium, Blood 3.3 mmol/L (3.5-5.5); Sodium, Blood 138 mmol/L (136-145)
--- NOTE | 2020-09-14 07:11 | NUR ---
09/14/20 0530 PT SLEEPING WITH TRILOGY BIPAP IN PLACE. AWAKENED FOR AM MEDS. DENIES ANY S/S OR DISCOMFORT. FLUID RESTRICTION IN EFFECT. PANG CATH DRAINING WELL. BLE WITH EDEMA. PT ASSISTS WITH TURNING.VITALS STABLE.
--- NOTE | 2020-09-14 16:53 | NUR ---
SHIFT SUMMARY PT AWAKE THIS AM, BEFORE START OF SHIFT. PT RESTING QUIETLY ON BIPAP; DENIED NEEDS. MORBIDLY OBESE, ADMITTED FOR RESPIRATORY DISTRESS; IMPROVING WITH DIURETICS. PT CURRENTLY ON 2.5L O2, WHICH SHE REPORTED HER HOME BASELING O2. TYLENOL GIVEN PER EMAR FOR C/O LEG AND FEET PAIN. PAS ON, PT REPORTING "THEY FEEL GOOD". PANG TO GRAVITY; PATENT. PLACED FOR HEMATURIA AND DIFFICULTLY VOIDING, PER REPORT. NEW ORDERS TO D/C PANG. PT TO GET UP TO CHAIR FOR MEALS. PT AGREEABLE TO TRY. NYSTATIN PLACED TO SANDRA AREA AND PANUS FOLDS. CBG'S WNL'S TODAY; SEE CHART. LUNGS T/O WITH SCATTERED EXP WHEEZES IN R LOBES. VISITOR TO TODAY. PLEASANT AND GRATEFUL FOR CARE. CALL LT IN REACH.
--- NOTE | 2020-09-14 19:46 | NUR ---
DR HAMILTON HERE TO SEE PT. NEW ORDERS PLACED. MIRALAX GIVEN PER EMAR. PANG CATH D/C'D PER ORDERS. PT LATER UP TO BSC TO VOID. PT ATTEMPTED TO GET TO CHAIR FOR DINNER. PT VERY WEAK AND SOB WITH EXERTION. PT ABLE TO GET OOB AND STAND AT BS BUT UNABLE TO GET INTO CHAIR TONIGHT. PT DID SIT AT EOB TO EAT DINNER THOUGH; BIG IMPROVEMENT FROM YESTERDAY. PT WILL TRY TO GET TO CHAIR FOR MEALS TOMORROW. PT ON 1L FR, WHICH PT STATES IS VERY DIFFICULT FOR HER TO MAINTAIN. PT IS VERY PLEASANT AND CO-OP WITH CARE. RESTING QUIETLY AT THIS TIME. REPORT GIVEN TO TESS ENGLISH.
--- NOTE | 2020-09-15 04:13 | NUR ---
09/15/20 1615 PT WANTING TO VOID. UP TO BSC WITH WALKER AND 2 STAFF. VOIDED 625 ML JULIA URINE. NO BLOOD NOTED. ASSISTED BACK TO BED AND TRILOGY BIPAP REAPPLIED. PT WANTING TO SLEEP AGAIN. LIGHTS OUT.
[2020-09-15 05:59] LABS: Hematocrit 33.9 % (33.0-51.0); Hemoglobin 9.9 g/dL (11.5-16.0)
[2020-09-15 06:22] LABS: Albumin, Blood 2.3 g/dL (3.4-5.0); Anion Gap 4 mmol/L (6-16); Blood Urea Nitrogen 59 mg/dL (8-24); Bun/Creatinine Ratio 37.3 (12.0-20.0); CO2, Blood 41 mmol/L (21-32); Calcium, Blood 8.9 mg/dL (8.5-10.1); Chloride, Blood 93 mmol/L (98-108); Creatinine, Blood 1.58 mg/dL (0.40-1.00); Glomerular Filtration Rate 34 (60-); Glucose, Blood 87 mg/dL (70-99); Phosphorus, Blood 2.4 mg/dL (2.5-4.9); Potassium, Blood 3.3 mmol/L (3.5-5.5); Sodium, Blood 138 mmol/L (136-145)
--- NOTE | 2020-09-15 15:56 | NUR ---
SUMMARY PT IS A/O X4, PLEASANT/COOPERATIVE AFFECT. SHE STATE CONTINUING CHR SOB @ REST STATE IMPROVING HOWEVER NOT QUITE BASELINE. O2 @ HOME DOSE 2.5L, BIOX HIGH 90'S, LUNGS DECREASED. SHE IS EXTREMELY OBESE, 1-2 ASSIST UP TO CHAIR. SHE PREFERS IN RECLINER T/O DAY. HRR THIS AM, BLE EDEMA APPROX 2+, LEGS SCALY, SHE STATE HX NEUROPATHY. GFR 34. K+ 3.3, DR MCKEON ORDER IV KPHOS THIS AM. SHE IS COMPLIANT w FR 1L/DAY. URINE CONTINUES PINK, BLOOD TINGED, DR AWARE, WILL MX. VSS.
--- NOTE | 2020-09-15 18:33 | NUR ---
Spiritual care note: Met with pt and dtr at bedside. they have a strong relationship and dtr appears very supportive. Mrs. Blanchard says she is feeling better and ishopeful for full recovery. No concerns presented. Prayer provided at bedside. I tito remain available.
[2020-09-16 05:31] LABS: Hematocrit 34.6 % (33.0-51.0)
--- NOTE | 2020-09-16 05:41 | NUR ---
09/16/20 0530 UP TO [facility] [place] [facility] FOR BM AND VOIDING. VITALS STABLE. UNEVENTFUL NIGHT. O2 AT 2.5LPM.
[2020-09-16 06:00] LABS: Albumin, Blood 2.4 g/dL (3.4-5.0); Anion Gap 2 mmol/L (6-16); Blood Urea Nitrogen 61 mg/dL (8-24); Bun/Creatinine Ratio 38.1 (12.0-20.0); CO2, Blood 43 mmol/L (21-32); Calcium, Blood 9.2 mg/dL (8.5-10.1); Chloride, Blood 92 mmol/L (98-108); Glomerular Filtration Rate 34 (60-); Glucose, Blood 100 mg/dL (70-99); Phosphorus, Blood 3.5 mg/dL (2.5-4.9); Potassium, Blood 3.5 mmol/L (3.5-5.5); Sodium, Blood 137 mmol/L (136-145)
[2020-09-16 16:10] LABS: PCO2 Arterial 73.9 mmHg (35-45); PO2 Arterial 82 mmHg (80-100); pH Blood Arterial 7.38 (7.35-7.45)
--- NOTE | 2020-09-16 17:36 | NUR ---
SUMMARY THIS AM NOC RN REPORT PT FORGOT TO WEAR HER TRILOGY MOST OF NOC. PT STATE HOPEFUL TO GO HOME HOWEVER STATE NOT FEELING WELL PREVIOUS DAY. DR HAMILTON STATE POSSIBLE D/C HOME AFTER PHYTHER EVAL HOWEVER THIS AFTERNOON PT STATE STILL NOT FEELING WELL, ORDER ABG, CO2 CH 73.9, DR STATE NO D/C TODAY. PT HAS BEEN UP IN RECLINER ALL DAY w O2 @ 2.5L HOME DOSE, BIOX 95% SHE IS VERY PLEASANT/COOPERATIVE. SHE IS ABLE TO STAND w ASSIST, FWW, SM STEPS TO BSC/CHAIR, EASILY FATIGUED/SOB. SOFTWARE ASSET MANAGER PROVIDE BEDBATH TODAY. DR VALENCIA INCREASE IV BUMEX 4MG. GFR @ 34. BLE CONTINUE EDEMATOUS, APPROX 2+. DAUGHTER IN TO VISIT THIS AFTERNOON, PROVIDED UPDATE.
--- NOTE | 2020-09-17 04:21 | NUR ---
SHIFT SUMMARY NO ACUTE CHANGES THIS SHIFT. PT SLEPT WELL T/O NIGHT WITH TRIOLOGY IN PLACE. NO COMPLAINTS OF ANY KIND. PT IS LAYING IN BED WITH EYES CLOSED, EVEN AND UNLABORED RESPIRATIONS. BED IS IN LOWERED POSITION WITH ALARM IN PLACE. CALL LIGHT AND PERSONAL ITEMS WITHIN REACH. NO APPARENT NEEDS OR DISTRESS AT THIS TIME, WILL CONTINUE TO MONITOR UNTIL REPORT GIVEN TO DAY RN.
[2020-09-17 05:42] LABS: Hematocrit 35.5 % (33.0-51.0); Hemoglobin 10.4 g/dL (11.5-16.0)
[2020-09-17 06:03] LABS: Albumin, Blood 2.5 g/dL (3.4-5.0); Anion Gap 4 mmol/L (6-16); Blood Urea Nitrogen 61 mg/dL (8-24); Bun/Creatinine Ratio 41.2 (12.0-20.0); CO2, Blood 40 mmol/L (21-32); Calcium, Blood 9.3 mg/dL (8.5-10.1); Chloride, Blood 92 mmol/L (98-108); Creatinine, Blood 1.48 mg/dL (0.40-1.00); Glomerular Filtration Rate 37 (60-); Glucose, Blood 107 mg/dL (70-99); Magnesium, Blood 2.1 mg/dL (1.6-2.4); Phosphorus, Blood 2.7 mg/dL (2.5-4.9); Potassium, Blood 3.7 mmol/L (3.5-5.5); Sodium, Blood 136 mmol/L (136-145)
[2020-09-17] MEDS ORDERED: ALBU2.5V5 INH (12:58)
[2020-09-17] MEDS ORDERED: Nystop60 GM TOP (12:58)
[2020-09-17] MEDS ORDERED: SENN187 PO (12:58)
[2020-09-17] MEDS ORDERED: IPRAT-ALBUT 0.5-3 ML INH (13:00)
--- NOTE | 2020-09-17 14:52 | NUR ---
SUMMARY/DISCHARGE PT DISCHARGED TO HOME, WITH HOME HEALTH, PT VERBALIZED UNDERSTANDING OF DISCHARGE INSTRUCTIONS REGARDING MEDS AND FOLLOW UP, TRANSPORT ARRANGED WITH [facility], PT TAKEN OUT SAFELY VIA WHEELCHAIR
== END 2020-09-17 14:43 | disposition home health service (06) | DRG 291 ==
LOC: ER 16:28 → ICUW 16:29 → ICUE 16:29 → MEDS 09-11 11:29
PROVIDERS: Emergency Medicine; Internal Medicine; Internal Medicine Critical Care Medicine; Internal Medicine Nephrology; Nurse Practitioner Acute Care; ADMIT Internal Medicine
PROC: 5A09457 Assistance with Respiratory Ventilation, 24-96 Consecutive Hours, Continuous Positive Airway Pressure (ICD-10-PCS; principal; 2020-09-09)
DX: I13.0 Hypertensive heart and chronic kidney disease with heart failure and stage 1 through stage 4 chronic kidney disease, or unspecified chronic kidney disease (principal); I50.33 Acute on chronic diastolic (congestive) heart failure; J96.21 Acute and chronic respiratory failure with hypoxia; J96.22 Acute and chronic respiratory failure with hypercapnia; G92 Toxic encephalopathy; E66.2 Morbid (severe) obesity with alveolar hypoventilation; E87.2 Acidosis; I48.20 Chronic atrial fibrillation, unspecified; N17.9 Acute kidney failure, unspecified; N25.81 Secondary hyperparathyroidism of renal origin; Z68.42 Body mass index [BMI] 45.0-49.9, adult; Z11.59 Encounter for screening for other viral diseases; N18.30 Chronic kidney disease, stage 3 unspecified; E11.22 Type 2 diabetes mellitus with diabetic chronic kidney disease; D64.9 Anemia, unspecified; E03.9 Hypothyroidism, unspecified; E83.39 Other disorders of phosphorus metabolism; E87.5 Hyperkalemia; E87.6 Hypokalemia; I27.20 Pulmonary hypertension, unspecified; J44.9 Chronic obstructive pulmonary disease, unspecified; K21.9 Gastro-esophageal reflux disease without esophagitis; Z86.73 Personal history of transient ischemic attack (TIA), and cerebral infarction without residual deficits; B97.89 Other viral agents as the cause of diseases classified elsewhere; G47.33 Obstructive sleep apnea (adult) (pediatric); Z99.81 Dependence on supplemental oxygen; Z79.01 Long term (current) use of anticoagulants; R31.0 Gross hematuria; G25.81 Restless legs syndrome
CPT/HCPCS: 0202U; 36415; 36600; 51702; 71045; 76770; 80048; 80053; 80069; 81003; 81050; 82550; 82803; 82947; 83735; 83880; 84100; 84132; 84156; 84439; 84443; 84484; 85014; 85018; 85025; 87040; 93005; 93010; 94640; 94644; 94660; 94664; 94667; 94668; 94760; 94762; 96374; 96375; 97110; 97116; 97162; 97166; 97530; 97535; 98960; 99285-25; A9270; A9270-GY; J0461; J0610; J0881; J1815; J1940; J2930; J3010; J7040; J7060; J7799

== ENCOUNTER → 2020-09-18 | Outpatient (CLI) | payer MEDICARE, OTHER ==
[~2020-09-18] MED LIST changes: +ACET325 PO; +ANTIFUNGAL POWD71 GM TOP; +CARV25 PO; +CRANBERRY500 M1 PO; +DOCU100 PO; +IPRAT-ALBUT 0.5-3 ML INH; +LIOT5 PO; +METO5 PO; +Mirapex1 MG PO; +ONDA4 PO; +POTCHL20ER PO; +SENN187 PO; +SPIR25 PO
[2020-09-18 19:21] LABS: Appearance, Urine Hazy (Clear); Bilirubin, Urine Neg (Neg); Blood, Urine 5+ (Neg); Color, Urine Yellow (P-Yellow); Glucose Qualitative, Urine Neg (Neg); Ketones, Urine Neg (Neg); Leukocyte Esterase, Urine 2+ (Neg); Nitrite, Urine Neg (Neg); Protein, Urine 1+ (Neg); Specific Gravity, Urine 1.005 (1.003-1.022); Urobilinogen, Urine 1+ (Normal)
[2020-09-18 19:35] LABS: Bacteria Few /hpf; Red Blood Cells, Urine 25-50 /hpf (0-2); Squamous Epithelial Cells Few /hpf (Few)
== END | disposition home or self-care (01) ==
LOC: LAB SHORT 17:56 → LAB 17:56
PROVIDERS: Internal Medicine
DX: N39.0 Urinary tract infection, site not specified (principal)
CPT/HCPCS: 81001; 87077; 87086; 87186

== ENCOUNTER 2020-09-30 11:14 | Inpatient (IN) | payer MEDICARE, OTHER ==
[~2020-09-30] VITALS: Ht 152.4 cm; Wt 147.9 kg
[~2020-09-30 11:14] MED LIST changes: -ACET325 PO; -ANTIFUNGAL POWD71 GM TOP; -CRANBERRY500 M1 PO; -DOCU100 PO; -ONDA4 PO
[2020-09-30 12:03] LABS: BASOPHILS ABSOLUTE AUTO 0.02 K/mm3 (0.00-0.23); BASOPHILS PERCENT AUTO 0 % (0-2); EOSINOPHILS ABSOLUTE AUTO 0.03 K/mm3 (0.00-0.68); EOSINOPHILS PERCENT AUTO 0 % (0-6); Hematocrit 34.6 % (33.0-51.0); IMMATURE GRAN ABSOLUTE AUTO 0.06 K/mm3 (0.00-0.10); IMMATURE GRAN PERCENT AUTO 1 % (0-1); LYMPHOCYTES ABSOLUTE AUTO 0.54 K/mm3 (0.84-5.20); LYMPHOCYTES PERCENT AUTO 7 % (21-46); MONOCYTES ABSOLUTE AUTO 0.51 K/mm3 (0.16-1.47); MONOCYTES PERCENT AUTO 6 % (4-13); Mean Corpuscular HGB 28.1 pg (26.0-34.0); Mean Corpuscular HGB Conc 28.9 g/dL (31.5-36.5); Mean Corpuscular Volume 97 fL (80-100); Mean Platelet Volume 10.6 fL (9.1-12.4); NEUTROPHILS ABSOLUTE AUTO 6.86 K/mm3 (1.96-9.15); NEUTROPHILS PERCENT AUTO 86 % (41-73); Platelet Count 219 K/mm3 (150-400); RDW Coefficient Variation 14.8 % (11.7-14.2); RDW Standard Deviation 52.6 fL (35.1-46.3); Red Blood Cell Count 3.56 M/mm3 (3.80-5.20); White Blood Cell Count 8.02 K/mm3 (4.00-11.30)
[2020-09-30 12:24] LABS: Troponin I <0.015 ng/mL (0.000-0.040)
[2020-09-30 12:26] LABS: Alanine Aminotransfer (ALT/SGP 424 U/L (12-78); Albumin, Blood 2.9 g/dL (3.4-5.0); Albumin/Globulin Ratio 0.6 (0.8-1.8); Alk Phos 150 U/L (50-136); Anion Gap 4 mmol/L (6-16); Aspartate Aminotrans (AST/SGOT 715 U/L (12-37); Bilirubin, Total 0.6 mg/dL (0.1-1.0); Blood Urea Nitrogen 118 mg/dL (8-24); Bun/Creatinine Ratio 40.7 (12.0-20.0); CO2, Blood 28 mmol/L (21-32); Calcium, Blood 8.6 mg/dL (8.5-10.1); Chloride, Blood 100 mmol/L (98-108); Globulin, Blood 4.9 g/dL (2.2-4.0); Glomerular Filtration Rate 17 (60-); Glucose, Blood 138 mg/dL (70-99); Potassium, Blood 7.8 mmol/L (3.5-5.5); Sodium, Blood 132 mmol/L (136-145); Total Protein, Blood 7.8 g/dL (6.4-8.2)
[2020-09-30 12:29] LABS: Base Excess Venous 0.8 mmol/L; Bicarbonate Venous 23.7 mmol/L (24.0-30.0); PCO2 Venous 73.2 mmHg (38-42); PO2 Venous 58.3 mmHg (38-42)
[2020-09-30 14:03] LABS: Adenovirus Not Detected (NOT DETECT); Bordetella pertussis Not Detected (NOT DETECT); Chlamydophila pneumoniae Not Detected (NOT DETECT); Coronavirus 229E Not Detected (NOT DETECT); Coronavirus HKU1 Not Detected (NOT DETECT); Coronavirus NL63 Not Detected (NOT DETECT); Coronavirus OC43 Not Detected (NOT DETECT); Human Metapneumovirus Not Detected (NOT DETECT); Human Rhinovirus/Enterovirus Not Detected (NOT DETECT); Influenza A/2009-H1 Not Detected (NOT DETECT); Influenza A/H1 Not Detected (NOT DETECT); Influenza A/H3 Not Detected (NOT DETECT); Influenza B Not Detected (NOT DETECT); Mycoplasma pneumoniae Not Detected (NOT DETECT); Parainfluenza Virus 1 Not Detected (NOT DETECT); Parainfluenza Virus 2 Not Detected (NOT DETECT); Parainfluenza Virus 3 Not Detected (NOT DETECT); Parainfluenza Virus 4 Not Detected (NOT DETECT); Respiratory Syncytial Virus Not Detected (NOT DETECT); SARS-Cov-2 (COVID-19), BioFire Not Detected (NOT DETECT)
--- NOTE | 2020-09-30 15:30 | NUR ---
ADMIT ASSESSMENT- PT ADMITTED TO ICU FROM ER ON [facility]. AWAKENS TO NAME, ABLE TO ANSWER SOME QUESTIONS AND FOLLOW DIRECTIONS, BACK TO SLEEP QUICKLY. BIPAP ON, TOLERATING BIPAP WITHOUT COMPLAINTS, LUNGS COARSE, DIMINISHED THROUGHOUT. OBESE, HEART DISTANT. SINUS PILAR, SBP 90'S. ABDOMEN LARGE VENTRAL HERNIA. BOWEL SOUNDS PRESENT. PANG IN PLACE, IRRIGATED WITH RETURN OF IRRIGANT. NO UO. SKIN POOR CONDITION. FEET SCALY, THICKENED SKIN. FOLDS UNDER BREASTS AND PANNUS REDDENED, PRESSURE SORE TO SACRUM-SEE PICTURES. 2 PIVS INTACT. SON HERE-ADMISSION HISTORY BEING DONE. STATES PT HAS STAYED WITH HIM LAST TWO WEEKS SINCE DISCHARGE, DID WELL FIRST WEEK BUT THEN HAS BEEN DECLINING-CAN HARDLY GET TO BATHROOM, VERY WEAK. LABS DRAWN
[2020-09-30 16:08] LABS: Albumin, Blood 2.8 g/dL (3.4-5.0); Anion Gap 6 mmol/L (6-16); Blood Urea Nitrogen 119 mg/dL (8-24); Bun/Creatinine Ratio 41.2 (12.0-20.0); CO2, Blood 26 mmol/L (21-32); Calcium, Blood 9.2 mg/dL (8.5-10.1); Chloride, Blood 102 mmol/L (98-108); Creatinine, Blood 2.89 mg/dL (0.40-1.00); Glomerular Filtration Rate 17 (60-); Glucose, Blood 106 mg/dL (70-99); Phosphorus, Blood 7.2 mg/dL (2.5-4.9); Sodium, Blood 134 mmol/L (136-145)
[2020-09-30 16:09] LABS: Potassium, Blood 7.5 mmol/L (3.5-5.5)
--- NOTE | 2020-09-30 16:50 | NUR ---
POTASSIUM RESULTS CALLED TO MAYO HALL AND DR. MCKEON. SEE ORDERS. UPDATED WITH MARGINAL BLOOD PRESSURES. D50 WITH INSULIN, NAHC03 GIVEN, CALCIUM IV STARTED. POOR IV ACCESS. PT HAS PERIODS WHERE SHE IS COMFORTABLE AND QUIET AND THEN BRIEF PERIODS OF RESTLESSNESS. BEDSIDE ULTRASOUND DONE-PANG IN BLADDER, SMALL AMOUNT URINE-SENT FOR LAB.
[2020-09-30 16:51] LABS: Source, Urine Clean Catch
[2020-09-30 16:57] LABS: Appearance, Urine Cloudy (Clear); Bilirubin, Urine Neg (Neg); Blood, Urine 5+ (Neg); Color, Urine Red (P-Yellow); Glucose Qualitative, Urine Neg (Neg); Ketones, Urine Neg (Neg); Leukocyte Esterase, Urine 3+ (Neg); Nitrite, Urine Neg (Neg); Protein, Urine 2+ (Neg); Specific Gravity, Urine 1.005 (1.003-1.022); Urobilinogen, Urine NORM (Normal); pH, Urine 6.5 (5.0-8.0)
[2020-09-30 17:08] LABS: Bacteria Few /hpf; Red Blood Cells, Urine TNTC /hpf (0-2); Squamous Epithelial Cells Few /hpf (Few)
--- NOTE | 2020-09-30 18:30 | NUR ---
BP IMPROVED, PICC LINE PLACED BY ARNALDO ENGLISH FOR ACCESS. PT TOLERATING BIPAP WITH TIDAL VOLUMES 400'S. MASK OFF BRIEFLY, ABLE TO TAKE SIPS WATER AND MEDICATIONS. SCANT UO.
--- NOTE | 2020-09-30 18:54 | NUR ---
HEARTRATE 38-40 NOW, HYPOTENSIVE. CALL TO DR. MCKEON. PT AWAKENS EASILY. TOLERATING BIPAP
--- NOTE | 2020-09-30 19:10 | NUR ---
DR. MCKEON CALLED-UPDATED. ORDERS FOR DOPAMINE-STARTED AT 5 MCG/KG/MIN. REPORT TO BRENDA ENGLISH
[2020-09-30 20:41] LABS: PCO2 Arterial 73.2 mmHg (35-45); pH Blood Arterial 7.22 (7.35-7.45)
--- NOTE | 2020-09-30 22:08 | NUR ---
ASSUMED PT CARE AT 1900 FROM TY RN PT SOMNOLENT WITH BIPAP MASK IN PLACE 14/6; FIO2 35%; PT RESPONDS TO VERBAL STIMULI; HOWEVER, NOT ALERT OR ORIENTED. HR LOW IN THE 30-40'S UPON ASSUMPTION OF CARE. BP EXTREMELY LOW WITH SBP <50. CALLED MIKE FOR DOPAMINE GTT, WHICH WAS INITIATED AT 5MCG/KG/MIN. HR AND BLOOD PRESSURE RESPONDED APPROPRIATELY. RT TO BEDSIDE TO ADJUST BIPAP SETTINGS TO 18/8; FIO2 40% DUE TO LOW TV. ALSO CALLED MIKE REGARDING CRITICAL POTASSIUM LEVEL OF 7.3 AND ASKED FOR ORDERS FOR STAT ABG D/T MENTATION AND BIPAP REQUIREMENTS. ORDERS OBTAINED TO ADMINISTER AN AMP OF BICARB, D50, AND 10 UNITS OF INSULIN, WELL TO DRAW A RENAL PANEL IN AN HOUR AND TO CALL WITH RESULTS. CALLED WITH RESULTS FROM RENAL PANEL SHOWING CRITICAL POTASSIUM OF 6.9, WELL LOW URINE OUTPUT OF ONLY 50CC AFTER 4MG OF BUMEX ADMINISTERED. NEW ORDERS TO GIVE ANOTHER AMP OF BICARB AND 10MG OF ZAROXOLYN. PT IS MORE ALERT AND ORIENTED AFTER ADJUSTMENT OF BIPAP SETTINGS. C/O RESTLESS LEGS; MEDICATED WITH SCHEDULED MIRAPEX; DENIES PAIN ELSEWHERE. CALL LIGHT WITHIN REACH; WILL CONTINUE TO MONITOR FOR CHANGES.
[2020-09-30 22:11] LABS: Albumin, Blood 2.9 g/dL (3.4-5.0); Anion Gap 0 mmol/L (6-16); Blood Urea Nitrogen 122 mg/dL (8-24); Bun/Creatinine Ratio 40.8 (12.0-20.0); CO2, Blood 33 mmol/L (21-32); Calcium, Blood 8.9 mg/dL (8.5-10.1); Chloride, Blood 102 mmol/L (98-108); Creatinine, Blood 2.99 mg/dL (0.40-1.00); Glomerular Filtration Rate 16 (60-); Glucose, Blood 75 mg/dL (70-99); Phosphorus, Blood 6.8 mg/dL (2.5-4.9); Potassium, Blood 6.9 mmol/L (3.5-5.5); Sodium, Blood 135 mmol/L (136-145)
--- NOTE | 2020-10-01 01:59 | NUR ---
DR. MCKEON PLACED CALL REGARDING CRITICAL POTASSIUM LEVEL OF 7.1. NEW ORDERS TO CHECK GLUCOSE AND CALL BACK WITH RESULTS. GLUCOSE CHECKED AT 81. NEW ORDERS FOR ANOTHER AMP OF D50, 10 UNITS OF INSULIN IV, 5MG OF BUMEX IV, AND TO CHANGE LOKELMA 10GM TO TID AND GIVE AN EXTRA DOSE NOW. PT WAS ONLY ABLE TO DRINK HALF OF THE LOKELMA. WILL ATTEMPT THE OTHER HALF IN A LITTLE WHILE. POTASSIUM IS TO BE RECHECKED IN TWO HOURS WITH A RETURN CALL MADE TO DR. MCKEON.
[2020-10-01 03:50] LABS: BASOPHILS ABSOLUTE AUTO 0.02 K/mm3 (0.00-0.23); BASOPHILS PERCENT AUTO 0 % (0-2); EOSINOPHILS ABSOLUTE AUTO 0.04 K/mm3 (0.00-0.68); EOSINOPHILS PERCENT AUTO 0 % (0-6); Hematocrit 33.3 % (33.0-51.0); Hemoglobin 9.7 g/dL (11.5-16.0); IMMATURE GRAN ABSOLUTE AUTO 0.06 K/mm3 (0.00-0.10); IMMATURE GRAN PERCENT AUTO 1 % (0-1); LYMPHOCYTES ABSOLUTE AUTO 0.69 K/mm3 (0.84-5.20); LYMPHOCYTES PERCENT AUTO 8 % (21-46); MONOCYTES ABSOLUTE AUTO 0.56 K/mm3 (0.16-1.47); MONOCYTES PERCENT AUTO 6 % (4-13); Mean Corpuscular HGB 28.1 pg (26.0-34.0); Mean Corpuscular HGB Conc 29.1 g/dL (31.5-36.5); Mean Corpuscular Volume 97 fL (80-100); Mean Platelet Volume 10.1 fL (9.1-12.4); NEUTROPHILS ABSOLUTE AUTO 7.87 K/mm3 (1.96-9.15); NEUTROPHILS PERCENT AUTO 85 % (41-73); Platelet Count 216 K/mm3 (150-400); RDW Coefficient Variation 14.7 % (11.7-14.2); RDW Standard Deviation 51.8 fL (35.1-46.3); Red Blood Cell Count 3.45 M/mm3 (3.80-5.20); White Blood Cell Count 9.24 K/mm3 (4.00-11.30)
[2020-10-01 04:07] LABS: Magnesium, Blood 2.2 mg/dL (1.6-2.4)
[2020-10-01 04:35] LABS: Albumin, Blood 2.9 g/dL (3.4-5.0); Albumin/Globulin Ratio 0.6 (0.8-1.8); Bilirubin, Total 0.4 mg/dL (0.1-1.0); Calcium, Blood 8.9 mg/dL (8.5-10.1); Creatinine, Blood 2.95 mg/dL (0.40-1.00); Globulin, Blood 4.6 g/dL (2.2-4.0); Phosphorus, Blood 6.7 mg/dL (2.5-4.9); Potassium, Blood 6.7 mmol/L (3.5-5.5); Total Protein, Blood 7.5 g/dL (6.4-8.2)
[2020-10-01 05:05] LABS: Base Excess Venous 4.2 mmol/L; Bicarbonate Venous 26.7 mmol/L (24.0-30.0); PCO2 Venous 72.9 mmHg (38-42); PO2 Venous 55.1 mmHg (38-42); pH Blood Venous 7.25 (7.34-7.37)
--- NOTE | 2020-10-01 06:27 | NUR ---
END OF SHIFT SUMMARY NO SIGNIFICANT CHANGES SINCE LAST ENTRY. POTASSIUM LEVEL REMAINS LOW REGARDLESS OF INTERVENTION. MORNING POTASSIUM WAS 6.7; THEREFORE, NEW ORDERS FROM DR. MCKEON TO GIVE ZAROXOLYN 10MG PO, 5MG BUMEX, AND START BUMEX GTT. PT REMAINS ALERT AND ORIENTED X4; ABLE TO MAKE NEEDS KNOWN. HAS REMAINED ON THE BIPAP T/O NIGHT; CURRENT SETTINGS 22/8; FIO2 45%. BREAKS FOR ORAL CARE PT HAS TOLERATED 5L VIA NC; STATES SHE WEARS 2.5L AT HOME. 425CC OF URINE OUTPUT; TEA COLORED WITH BLOOD TINGED AND MINIMAL CLOTS NOTED. PT HAS DOPAMINE GTT INFUSING AT 5MCG/KG/MIN, BUMEX GTT 1MG/HR, NS TKO, AND D5NS AT 50MLS/HR. DAUGHTER, NASIR, CALLED FOR AN UPDATE. SHE IS NOT LISTED ON THE RELEASE OF INFORMATION FORM; HOWEVER, PT GAVE VERBAL CONSENT THAT IT WAS OKAY. DAUGHTER UPDATED AND WAS ASKING APPROPRIATE QUESTIONS. CALL LIGHT WITHIN REACH; WILL CONTINUE TO MONITOR.
[2020-10-01 07:59] LABS: pH Blood Arterial 7.24 (7.35-7.45)
[2020-10-01 08:00] LABS: PCO2 Arterial 74.3 mmHg (35-45); PO2 Arterial 62.7 mmHg (80-100)
--- NOTE | 2020-10-01 08:00 | NUR ---
ASSUMED CARE FROM AMADOR THOMPSON. PT LAYING SUPINE ON BED. DOPAMINE GTT @ 5 mcg/kg/min & BUMEX GTT @ 1mg/hr. PT AWAKES EASILY TO VERBAL STIMULI, A&OX3, FOLLOWS COMMANDS. LS COARSE THROUGHOUT & DIMINISHED IN THE BASES. BiPAP IN PLACE 22/8, 45% FiO2. TACHYPNEIC @ 30 RR/MIN. SPEAKING IN 1-2 WORD SENTENCES. PT IS NPO D/T TACHYPNEA, HOWEVER PT CONTINUES TO REQUEST SODA & FOOD, REMINDED OF NPO STATUS & PT IS AGREEABLE. ABD OBESE, NONTENDER, BT HYPOACTIVE. NOTABLE DISTENTION FROM KNOWN ABDOMINAL HERNIA. SIGNIFICANT MOIST RASH TO ABD & PANNUS FOLDS. PANG PATENT & DRAINING DARK JULIA URINE W/ SEDIMENT TO GRAVITY. DEPENDENT EDEMA TO BLE. SKIN IS VERY DRY W/ SCATTERED ECCHYMOSIS. PCC TO LUE, INFUSING, DRESSING SOILED W/ DRIED BLOOD, WILL CHANGE THIS SHIFT. WILL CONTINUE TO MONITOR & REPORT APPROPRIATE.
[2020-10-01 12:30] LABS: Albumin, Blood 2.8 g/dL (3.4-5.0); Anion Gap 3 mmol/L (6-16); Blood Urea Nitrogen 124 mg/dL (8-24); Bun/Creatinine Ratio 43.7 (12.0-20.0); CO2, Blood 35 mmol/L (21-32); Calcium, Blood 8.7 mg/dL (8.5-10.1); Chloride, Blood 101 mmol/L (98-108); Creatinine, Blood 2.84 mg/dL (0.40-1.00); Glomerular Filtration Rate 17 (60-); Glucose, Blood 98 mg/dL (70-99); Phosphorus, Blood 6.4 mg/dL (2.5-4.9); Potassium, Blood 5.8 mmol/L (3.5-5.5); Sodium, Blood 139 mmol/L (136-145)
[2020-10-01 15:36] LABS: PCO2 Arterial 79.4 mmHg (35-45); PO2 Arterial 90.2 mmHg (80-100); pH Blood Arterial 7.23 (7.35-7.45)
--- NOTE | 2020-10-01 18:04 | NUR ---
SHIFT SUMMARY: PT TOLERATED BREAK FROM THE BiPAP & TOLERATING SIPS OF CLEAR LIQUIDS. HR MAINTAINING IN THE 50s, BP STABLE. DOPAMINE GTT @ 5mcg/min. INC URINE OUTPUT THIS SHIFT. INTAKE 1093 vs. 1675 OUTPUT. K+ IMPROVED, NOW 5.8. PT SON & DAUGHTER HAVE BOTH BEEN UPDATED ON PLAN OF CARE. WILL CONTINUE TO MONITOR UNTIL REPORT OFF TO ONCOMING RN.
[2020-10-01 20:32] LABS: Albumin, Blood 2.8 g/dL (3.4-5.0); Anion Gap 6 mmol/L (6-16); Blood Urea Nitrogen 128 mg/dL (8-24); Bun/Creatinine Ratio 45.9 (12.0-20.0); CO2, Blood 31 mmol/L (21-32); Calcium, Blood 8.8 mg/dL (8.5-10.1); Chloride, Blood 100 mmol/L (98-108); Creatinine, Blood 2.79 mg/dL (0.40-1.00); Glomerular Filtration Rate 18 (60-); Glucose, Blood 128 mg/dL (70-99); Phosphorus, Blood 6.3 mg/dL (2.5-4.9); Potassium, Blood 5.4 mmol/L (3.5-5.5); Sodium, Blood 137 mmol/L (136-145)
--- NOTE | 2020-10-01 21:00 | NUR ---
ASSUMED PT CARE AT 1900 FROM AMADOR OSBORNE PT UP IN BED GETTING PICC LINE DRESSING CHANGED TO LEFT UPPER ARM. PT ALERT AND RESPONDING TO QUESTIONS APPROPRIATELY; HOWEVER, SHE IS NOTED TO BECOME FORGETFUL AND CONFUSED AT TIMES. PT INCREASED FROM 2L TO 4L VIA NC. PER REPORT PT HAS BEEN ON AND OFF THE BIPAP T/O DAY AND THERE WAS NO SIGNIFICANT DIFFERENCE TO HER PCO2 ON OR OFF THE BIPAP; THEREFORE, PER PT REQUEST SHE WAS LEFT ON NC. PT REMAINS ON DOPAMINE GTT AT 5MCG/KG/HR, BUMEX GTT AT 1MG/HR, AND D5NS AT 50MLS/HR. HR 50-60'S; BP'S STABLE, SEE FLOWSHEET. PANG CATHETER IS PATENT AND DRAINING MODERATE AMOUNTS TO GRAVITY. CALL LIGHT WITHIN REACH; HOWEVER, PT UNABLE TO MAKE NEEDS KNOWN UNLESS DIRECTLY ASKED. WILL CONTINUE TO MONITOR.
[2020-10-02 03:31] LABS: Hematocrit 32.4 % (33.0-51.0); Hemoglobin 9.6 g/dL (11.5-16.0)
[2020-10-02 03:47] LABS: Albumin, Blood 2.7 g/dL (3.4-5.0); Anion Gap 3 mmol/L (6-16); Blood Urea Nitrogen 119 mg/dL (8-24); Bun/Creatinine Ratio 46.1 (12.0-20.0); CO2, Blood 36 mmol/L (21-32); Calcium, Blood 8.5 mg/dL (8.5-10.1); Chloride, Blood 99 mmol/L (98-108); Creatinine, Blood 2.58 mg/dL (0.40-1.00); Glomerular Filtration Rate 19 (60-); Glucose, Blood 122 mg/dL (70-99); Magnesium, Blood 2.2 mg/dL (1.6-2.4); Potassium, Blood 4.9 mmol/L (3.5-5.5); Sodium, Blood 138 mmol/L (136-145)
--- NOTE | 2020-10-02 04:45 | NUR ---
CHANGE PT CONVERTED TO AFIB WITH RVR; HR IN THE 170'S. BP 95/74 MAP 80. TURNED OFF DOPAMINE GTT AND CALLED DR. ESCOBEDO. NEW ORDERS FOR LOPRESSOR 5MG IV X ONE DOSE FOR RATE CONTROL.
--- NOTE | 2020-10-02 05:10 | NUR ---
DR. MCKEON CALLED TO UPDATE DR. MCKEON REGARDING LABS AND PT CONVERTING INTO AFIB WITH RVR; HR 170'S. ASKED IF HE WANTED TO INCREASE HER FLUIDS; HE STATED NO AND WOULD CONSIDER LATER WHEN HE CAME DOWN TO ASSESS HER. INFORMED HIM DR. ESCOBEOD GAVE ORDERS FOR LOPRESSOR 5MG IV X1 DOSE.
[2020-10-02 05:19] LABS: PCO2 Arterial 73.6 mmHg (35-45); PO2 Arterial 85.3 mmHg (80-100); pH Blood Arterial 7.29 (7.35-7.45)
--- NOTE | 2020-10-02 05:51 | NUR ---
END OF SHIFT SUMMARY PT REMAINED ON BIPAP T/O NIGHT; 21/06 WITH FIO2 CURRENTLY AT 45%. DOPAMINE GTT TURNED OFF THIS MORNING WHEN PT CONVERTED INTO AFIB WITH RVR WITH RATE 170'S. LOPRESSOR WAS UNEFFECTIVE AT MANAGING RATE; THEREFORE, CALLED DR. ESCOBEDO BACK WITH A NEW ORDER TO OBTAIN EKG AND IF QT WAS NOT PROLONGED, ADMINISTER 150MG BOLUS OF AMIODARONE. EKG PERFORMED WITH CONFIRMATION OF AFIB WITH RVR; QTC 459MS. BP'S STABLE AT THIS TIME; FLUCTUATING FROM SBP 70'S-120'S. PT IS ALERT AND ORIENTED TO SELF. BECOMES VERY CONFUSED AND FORGETFUL. CALLED SON AT ONE POINT IN THE NIGHT AND ASKED HIM TO COME PICK HER UP. PT REDIRECTED AND REORIENTED EASILY. 24 HOUR URINE COLLECTION STARTED AT 2114 ON 10/01/20. 2L OF OUTPUT NOTED SO FAR. URINE REMAINS ON ICE. BUMEX GTT CONTINUES AT 1MG/HR. D5NS AT 50MLS/HR. NS TKO. LUNG SOUNDS REMAIN CLEAR/DIM. TOLERATING BIPAP BREAKS FOR ORAL CARE WITH 4L OF OXYGEN VIA NC. WILL CONTINUE TO MONITOR UNTIL REPORT IS HANDED OFF TO ONCOMING RN.
--- NOTE | 2020-10-02 06:39 | NUR ---
DR. MCKEON AT BEDSIDE ORDERS TO DISCONTINUE BUMEX GTT
--- NOTE | 2020-10-02 07:15 | NUR ---
ASSUMED CARE FROM AMADOR GUTIERREZ. PT LAYING IN BED W/ BiPAP IN PLACE. 24/8 @ 30%. PT AWAKES EASILY TO VERBAL STIMULI. ORIENTED TO SELF & SITUATION. STS "THEY TELL ME I'M AT [facility] BUT I DON'T EVEN KNOW WHAT THIS PLACE IS". PT EASILY REORIENTED TO SITUATION. LS CLEAR THROUGHOUT, DIMINISHED IN THE BASES, HOWEVER ASSESSMENT DIFFICULT D/T LARGE BODY HABITUS. ABD DISTENDED, W/ KNOWN HERNIA TO RUQ, +BT x4. SIGNIFICANT RED, MOIST RASH TO FOLDS OF BREAST, PANNUS, ABD. PANG PATENT & DRAINING TO GRAVITY CLEAR YELLOW URINE. 24hr URINE COLLECTION CONTINUES UNTIL 2114 TONIGHT. SKIN VERY DRY W/ FLAKING TO BLE, SCATTERED BRUISING BUE. PICC TO LUE-INFUSING W/ DRESSING C/D/I. WILL CONTINUE TO MONITOR & REPORT APPROPRIATE.
--- NOTE | 2020-10-02 19:06 | NUR ---
SHIFT SUMMARY: PT ON BiPAP, 21/06 @ 30%. AMNIIDARONE GTT @1mg/min, PHENYLEPHRINE GTT@ 150mcg/min AWAKES EASILY TO VERBAL STIMULI, FOLLOWS COMMANDS. CONTINUES TO BE INTERMITTENTLY CONFUSED & EASILY REORIENTED. PT TOLERATES BREAKS FROM BiPAP WELL, WHILE USING NC @ 4LMIN. PT CONTINUES TO BE SINUS TACH IN THE 120s-130s. MOLLY NOW CONSULTED ON CASE. PLAN TO ADDRESS HR W/ AMNIO BOLUS & DRIP & HYPOTENSION W/ PHENYLEPHRINE. BP STABLE W/ SBP 115-100. 24URINE COLLECTION CONTINUES UNTIL 2114 TONIGHT. BED BATH COMPLETED THIS SHIFT.PT REFUSED ORAL CARE THIS SHIFT. TOLERATING LIQUIDS WELL. WILL CONTINUE TO MONITOR UNTIL REPORT OFF TO ONCOMING RN.
--- NOTE | 2020-10-02 19:15 | NUR ---
ASSUMED CARE OF PATIENT. REPORT RECEIVED FROM RENETTA. PT IS AWAKE AND ALERT, ANSWERRING QUESTIONS AND FOLLOWING COMMANDS APPROPRIATELY. PT IS ON BIPAP WITH FACE MASK 22/10 WITH FIO2 30%. PT MAY HAVE BREAKS WITH NC AT 4LPM. LEVOPHED HAS BEEN DC'D AND HENRY IS AT 150MCG/MIN. AMIODARONE AT 1MG/MIN. AF/AFLUTTER WITH RATES 100'S TO 120'S. BP STABLE, SEE FLOWSHEET. GOOD UO VIA PANG CATHETER TO GRAVITY.
[2020-10-03 04:26] LABS: BASOPHILS ABSOLUTE AUTO 0.07 K/mm3 (0.00-0.23); BASOPHILS PERCENT AUTO 1 % (0-2); EOSINOPHILS ABSOLUTE AUTO 0.24 K/mm3 (0.00-0.68); EOSINOPHILS PERCENT AUTO 2 % (0-6); Hematocrit 31.5 % (33.0-51.0); Hemoglobin 9.1 g/dL (11.5-16.0); IMMATURE GRAN ABSOLUTE AUTO 0.12 K/mm3 (0.00-0.10); IMMATURE GRAN PERCENT AUTO 1 % (0-1); LYMPHOCYTES PERCENT AUTO 12 % (21-46); MONOCYTES ABSOLUTE AUTO 0.85 K/mm3 (0.16-1.47); MONOCYTES PERCENT AUTO 8 % (4-13); Mean Corpuscular HGB 28.5 pg (26.0-34.0); Mean Corpuscular HGB Conc 28.9 g/dL (31.5-36.5); Mean Corpuscular Volume 99 fL (80-100); Mean Platelet Volume 9.8 fL (9.1-12.4); NEUTROPHILS ABSOLUTE AUTO 8.65 K/mm3 (1.96-9.15); NEUTROPHILS PERCENT AUTO 76 % (41-73); NRBC ABSOLUTE 0.04 K/mm3 (0.00-0.02); NRBC Auto 0.4 /100 WBC (0.0-0.2); Platelet Count 247 K/mm3 (150-400); RDW Coefficient Variation 15.3 % (11.7-14.2); RDW Standard Deviation 54.7 fL (35.1-46.3); Red Blood Cell Count 3.19 M/mm3 (3.80-5.20); White Blood Cell Count 11.33 K/mm3 (4.00-11.30)
[2020-10-03 04:36] LABS: Albumin, Blood 2.5 g/dL (3.4-5.0); Anion Gap 3 mmol/L (6-16); Blood Urea Nitrogen 105 mg/dL (8-24); Bun/Creatinine Ratio 48.4 (12.0-20.0); CO2, Blood 37 mmol/L (21-32); Calcium, Blood 8.2 mg/dL (8.5-10.1); Chloride, Blood 100 mmol/L (98-108); Creatinine, Blood 2.17 mg/dL (0.40-1.00); Glomerular Filtration Rate 24 (60-); Glucose, Blood 136 mg/dL (70-99); Phosphorus, Blood 5.4 mg/dL (2.5-4.9); Potassium, Blood 3.6 mmol/L (3.5-5.5); Sodium, Blood 140 mmol/L (136-145)
--- NOTE | 2020-10-03 05:48 | NUR ---
RHYTHM CHANGE PT CONVERTED TO PILAR WITH HR 30-40'S; AMIODARONE GTT PLACED ON STANDBY UNTIL DR. BARNES COULD BE CONTACTED. BP'S DROPPED TO SYSTOLIC 70'S; THEREFORE, INCREASED PHENYLEPHRINE TO 150MCG/MIN WITH GOOD EFFECT. DR. BARNES CONTACTED WITH ORDERS TO DISCONTINUE AMIODARONE GTT; CONTINUE PHENYLEPHRINE GTT AND DR. GUY CAN DETERMINE THIS MORNING IF CARDIOLOGY SHALL BE CONSULTED.
--- NOTE | 2020-10-03 06:25 | NUR ---
END OF SHIFT SUMMARY SEE LAST ENTRY FOR RHYTHM CHANGE NOTE. PT CURRENTLY IS ON PHENYLEPHRINE AT 100MCG/MIN. AMIO GTT REMAINS OFF. NS AT TKO. CLINIMIX AT 85MLS/HR. HR REMAINS IN THE 30-40'S. BP'S STABLE, SEE FLOWSHEET. PT REMAINS ON BIPAP MOST OF SHIFT; /; FIO2 30%. PT IS ALERT AND ORIENTED; HOWEVER, BECOMES CONFUSED AND FORGETFUL AT NIGHT. EASILY REDIRECTABLE AND REORIENTED. PT IS VERY PLEASANT WITH CARES. PANG CATH REMAINS PATENT AND DRAINING CLEAR, YELLOW URINE TO GRAVITY. WILL CONTINUE TO MONITOR UNTIL REPORT IS HANDED OFF TO ONCOMING RN.
[2020-10-03 08:13] LABS: Bicarbonate Venous 31.1 mmol/L (24.0-30.0); PCO2 Venous 67.8 mmHg (38-42); PO2 Venous 52.6 mmHg (38-42); pH Blood Venous 7.32 (7.34-7.37)
--- NOTE | 2020-10-03 09:11 | NUR ---
Echocardiogram using 0.50ml of Definity contrast performed.
--- NOTE | 2020-10-03 09:30 | NUR ---
ASSUMED CARE OF PT AT 0700. REPORT FROM BRENDA/SAMREEN RN. PT RESTING IN BED. BIPAP ON AT START OF SHIFT, 21/08/%. CHANGED TO 4L VIA NC. O2 SATS MID 90'S. PT ANSWERING QUESTIONS APPROPRIATELY, A&OX 3. PT GETS INTERMITTANTLY CONFUSED DURING CONVERSATION, ASKS WHEN MY KIDS ARE GOING TO BE HERE, BUT REORIENTS EASILY. ALSO REPORTS VISUAL HALLUCINATION, STATES SHE SEES THINGS ON THE WALL THAT ARE NOT THERE. SPEAKING IN FULL SENTANCES, DYPSNEA c EXERTION. LUNGS DIMINISHED THROUGHOUT. ENCOURAGED PO INTAKE. PT UP TO CHAIR c LIFE. TOLERATED WELL. ABD ROUND, SOFT, NON TENDER, HERNIA NOTED. PT OBESE. WRINKLING NOTED TO BILATERAL LOWER EXTREMITES, CURRENTLY BEING DIURESED. PANG PATENT, DRAINING CLEAR YELLOW URINE TO GRAVITY. PICC TO LUE, DRESSING C/D/I. PHENYLEPHRINE GTT AT 100 MCG/MIN FOR MAP>65. AFTER DR GUY ROUNDED, PLAN TO TRANSITION TO LEVOPHED. CLINIMIX PLACED ON STANDBY. INCREASED BUMEX TO BID. SB ON MONITOR, RATE 40'S. WILL CONTINUE TO MONITOR.
--- NOTE | 2020-10-03 18:04 | NUR ---
SHIFT SUMMARY PT MORE ALERT THIS SHIFT. UP TO CHAIR FOR BREAKFAST, LUNCH AND REMAINED IN CHAIR UNTIL DINNER. ON 4L VIA NC CURRENTLY AND WHILE UP IN CHAIR. TOLERATED WELL. O2 SATS REMAINED MID 90'S. LUNGS DIMINISHED THROUGHOUT. PHENYLEPHRINE GTT D/C'D THIS SHIFT, LEVOPHED 3 MCG/MIN INFUSING AT THIS TIME. MAP>65. HR REMAINED SB RATE 40'S ENTIRE SHIFT. CLINIMIX D/C'D. ENCOURAGED PO INTAKE, MET c SCANNING CLERK TODAY. BUMEX INCREASED TO BID. 450 ML URINE OUTPUT THIS SHIFT. PANG PATENT, DRAINING YELLOW URINE c SEDIMENT TO GRAVITY. SKIN FOLDS RED, MOIST. POWDER APPLIED. ECHO COMPLETED THIS SHIFT. WILL CONTINUE TO MONITOR UNTIL REPORT TO ONCOMING NURSE.
--- NOTE | 2020-10-03 21:45 | NUR ---
PT IS TURNED AND BACK WASHED WHILE ON NC @4LPM. ACTIVITY WAS VERY BRIEF, BUT PATIENT TOLERATED THIS POORLY AND BECAME VERY DYSPNEIC WITH SPO2 DROPING TO THE 70'S. PT IS RETURNED TO HOB 30 DEGREES AND BIPAP. SHE RECOVERED QUICKLY.
--- NOTE | 2020-10-03 23:43 | NUR ---
ASSUMED CARE OF PATIENT. REPORT RECEIVED FROM AMADOR RUSH. PT IS AWAKE AND ALERT, WISHES TO USE HER PHONE TO CALL HER FAMILY.
--- NOTE | 2020-10-04 01:09 | NUR ---
PT STATES SHE CAN'T SLEEP SO SHE WISHES TO TAKE A BREAK FROM BIPAP AND EAT SOME ICE CHIPS.
[2020-10-04 04:19] LABS: BASOPHILS ABSOLUTE AUTO 0.03 K/mm3 (0.00-0.23); BASOPHILS PERCENT AUTO 0 % (0-2); EOSINOPHILS ABSOLUTE AUTO 0.23 K/mm3 (0.00-0.68); EOSINOPHILS PERCENT AUTO 3 % (0-6); Hemoglobin 8.7 g/dL (11.5-16.0); IMMATURE GRAN ABSOLUTE AUTO 0.03 K/mm3 (0.00-0.10); IMMATURE GRAN PERCENT AUTO 0 % (0-1); LYMPHOCYTES ABSOLUTE AUTO 1.24 K/mm3 (0.84-5.20); LYMPHOCYTES PERCENT AUTO 15 % (21-46); MONOCYTES ABSOLUTE AUTO 0.68 K/mm3 (0.16-1.47); MONOCYTES PERCENT AUTO 8 % (4-13); Mean Corpuscular HGB 28.2 pg (26.0-34.0); Mean Corpuscular Volume 97 fL (80-100); Mean Platelet Volume 9.7 fL (9.1-12.4); NEUTROPHILS ABSOLUTE AUTO 5.99 K/mm3 (1.96-9.15); NEUTROPHILS PERCENT AUTO 73 % (41-73); Platelet Count 157 K/mm3 (150-400); RDW Coefficient Variation 15.3 % (11.7-14.2); RDW Standard Deviation 53.3 fL (35.1-46.3); Red Blood Cell Count 3.08 M/mm3 (3.80-5.20)
[2020-10-04 04:36] LABS: Albumin, Blood 2.7 g/dL (3.4-5.0); Anion Gap 3 mmol/L (6-16); Blood Urea Nitrogen 107 mg/dL (8-24); CO2, Blood 37 mmol/L (21-32); Calcium, Blood 8.4 mg/dL (8.5-10.1); Chloride, Blood 99 mmol/L (98-108); Creatinine, Blood 2.14 mg/dL (0.40-1.00); Glomerular Filtration Rate 24 (60-); Glucose, Blood 157 mg/dL (70-99); Magnesium, Blood 2.1 mg/dL (1.6-2.4); Phosphorus, Blood 4.9 mg/dL (2.5-4.9); Potassium, Blood 3.7 mmol/L (3.5-5.5); Sodium, Blood 139 mmol/L (136-145)
--- NOTE | 2020-10-04 06:35 | NUR ---
SHIFT SUMMARY- PT REMAINS ALERT AND ORIENTED THROUGHOUT THE NIGHT, SLEEPING RESTLESSLY. SHE TAKES FREQUENT BREAKS OFF BIPAP WITH NC @4LPM AND TRIES SEVERAL TIMES TO HAVE A BM WITH NO SUCCESS. LEVOPHED IS TITRATED DOWN TO 1MCG/MIN. MONITOR SHOWS SINUS PILAR IN THE 40'S -50'S. DR. MCKEON WAS IN TO SEE PATIENT AND ADDS MIDODRINE TO HER MEDICATIONS. WILL REPORT TO ONCOMING SHIFT.
--- NOTE | 2020-10-04 09:43 | NUR ---
AM NOTE.... ASSUMED CARE OF PT APROX 0700, PT IS A&Ox4 WITH MOMENTS OF FORGETFULLNESS BUT EASILY REORIENTED. PT IS ON BIPAP AT 22/10 AND 30% WITH O2 SATS>90%, WHEN NOT ON BIPAP THE PT IS ON 4L NC, L/S DIM T/O, RR IN THE 20'S. PT IS IN SB IN THE 40'S-50'S, PT IS NOT CURRENTLY SYMPTOMATIC WITH THESE RATES. PT IS ON LEVOPHED GTT RUNNING AT 1MCG/KG TO KEEP MAP>60, PT WAS STARTED ON MIDODRINE THIS AM. PT HAS 2+ PITTING EDEMA TO HER BLE, 1+ TO HER BUE. BT PRESENT AND HYPOACTIVE, ABD IS LARGE, PT STATES NORMAL, ABD IS SLIGHTLY TENDER TO PALP, LARGE VENTRAL HERNIA IS PRESENT. PT WAS STARTED ON BOWEL CARE D/T NO BM SINCE 09/29, PT HAS BEEN ON THE BED [place]O MULTIPLE TIMES THIS AM WITH NO RESULTS. PT HAS HAD POOR APPITITE EATING ONLY A CUP OF PEACHES AND SOME BITES OF COTTAGE CHEESE. AT 0930 DR. GUY AT THE BEDSIDE FOR ASSESSMENT. NC WAS DECREASED FROM 4L TO 1L WITH VERBAL ORDERS TO KEEP O2 SATS>88% APROX 5 MINS LATER PT'S SATS DROPPED TO 83%, NC WAS INCREASED TO 2L WITH O2 SATS CURRENTLY >88%. LEVOPHED WAS ALSO STOPPED AT THIS TIME. WILL CONTINUE TO MONITOR.
--- NOTE | 2020-10-04 10:54 | NUR ---
PT UPDATE... THIS RN WAS IN THE ROOM WITH THE PT WHEN SHE ASKED IF HER HEART RATE "JUST SHOT UP." WHEN LOOKING AT THE MANAGER INTER[employer]ATIONAL PT'S HR INCREASED FROM THE 40'S UP TO THE 110'S-120'S. PT DENIES ANY CHEST PAIN/PRESSURE OR INCREASED SOB AT THIS TIME. PT'S BP IS CURRENTLY 140/82. DR. GUY NOTIFIED. WILL CONTINUE TO MONITOR.
--- NOTE | 2020-10-04 18:25 | NUR ---
SHIFT SUMMARY... PT CONVERTED FROM SINUS PILAR TO AFIB RVR AT APROX 1045, PT CONTINUES TO BE IN AFIB RVR WITH RATES 90'S-120'S. PT'S VS STABLE T/O SHIFT. LEVOPHED GTT STOPPED AT 0930 THIS AM. PT WORKED WITH PT THIS AFTERNOON AND SAT AT THE EDGE OF THE BED FOR APROX 1.5 HOURS BEFORE LAYING BACK DOWN. PT'S SON AT THE BEDSIDE THIS AFTERNOON, HE ALSO BROUGHT IN HER HOME BIPAP, RT AWARE AND WILL SET IT UP FOR THE PT. PT IS CURRENTLY PCU STATUS. PANG PATENT AND DRAINING CLEAR YELLOW URINE TO GRAVITY. PT HAS NOT HAD A BM THIS SHIFT, BOWEL CARE WAS GIVEN THIS AM, PT HAD PRUNE JUICE WITH DINNER. PT WAS ALSO STARTED ON A 1000 MLS FLUID RESTRICTION. CALL LIGHT IN REACH WILL CONTINUE TO MONITOR UNTIL REPORT IS GIVEN TO ONCOMING RN.
--- NOTE | 2020-10-04 19:00 | NUR ---
ASSUMED CARE OF PATIENT. SHE IS AWAKE AND ALERT AND NOW PCU STATUS. SHE STATES SHE IS FEELING BETTER TODAY AND HOPING TO SLEEP BETTER WITH HER HOME BIPAP MACHINE.
[2020-10-04 20:49] LABS: Bun/Creatinine Ratio 54.2 (12.0-20.0); Calcium, Blood 8.6 mg/dL (8.5-10.1); Creatinine, Blood 1.9 mg/dL (0.40-1.00); Potassium, Blood 3.5 mmol/L (3.5-5.5)
[2020-10-05 04:15] LABS: BASOPHILS ABSOLUTE AUTO 0.03 K/mm3 (0.00-0.23); BASOPHILS PERCENT AUTO 0 % (0-2); EOSINOPHILS ABSOLUTE AUTO 0.21 K/mm3 (0.00-0.68); EOSINOPHILS PERCENT AUTO 3 % (0-6); IMMATURE GRAN ABSOLUTE AUTO 0.04 K/mm3 (0.00-0.10); IMMATURE GRAN PERCENT AUTO 1 % (0-1); LYMPHOCYTES ABSOLUTE AUTO 1.04 K/mm3 (0.84-5.20); LYMPHOCYTES PERCENT AUTO 13 % (21-46); MONOCYTES ABSOLUTE AUTO 0.57 K/mm3 (0.16-1.47); MONOCYTES PERCENT AUTO 7 % (4-13); Mean Corpuscular Volume 96 fL (80-100); Mean Platelet Volume 9.7 fL (9.1-12.4); NEUTROPHILS ABSOLUTE AUTO 5.85 K/mm3 (1.96-9.15); NEUTROPHILS PERCENT AUTO 76 % (41-73); Platelet Count 154 K/mm3 (150-400); RDW Coefficient Variation 15.2 % (11.7-14.2); RDW Standard Deviation 52.3 fL (35.1-46.3); Red Blood Cell Count 3.22 M/mm3 (3.80-5.20); White Blood Cell Count 7.74 K/mm3 (4.00-11.30)
[2020-10-05 04:35] LABS: Bun/Creatinine Ratio 54.9 (12.0-20.0); Calcium, Blood 8.9 mg/dL (8.5-10.1); Creatinine, Blood 1.73 mg/dL (0.40-1.00); Phosphorus, Blood 4.1 mg/dL (2.5-4.9); Potassium, Blood 3.4 mmol/L (3.5-5.5)
--- NOTE | 2020-10-05 06:26 | NUR ---
SHIFT SUMMARY- PT SLEPT MUCH MORE COMFORTABLY ON HER HOME BIPAP MACHINE. HER RLS CONTINUES TO BE A NUISANCE FOR HER AND SHE REQUIRES FREQUENT REPOSITIONING FOR COMFORT. INCREASED BUMEX DOSING RESULTS IN 2850 UO AND PATIENT HAS PO FLUID RESTRICTION OF 1000ML/DAY. AM LABS ARE REVIEWED BY DR MCKEON WHO ORDERS PO KCL NOW AND DAILY.
--- NOTE | 2020-10-05 10:36 | NUR ---
AM NOTE... ASSUMED CARE OF PT APROX 0700 PT IS A&Ox4 WITH MOMENTS OF FORGETFULNESS. PT IS CURRENTLY ON HER HOME BIPAP WITH O2 SATS>88%. L/S CLEAR AND DIM T/O. PT IS IN AFIB IN THE 100'S-120'S. PT HAS 2+ PITTING EDEMA TO HER BLE AND TRACE GENERALIZED EDEMA. THIS IS AN IMPROVEMENT FROM YESTERDAY. PT HAS PICC LINE IN HER ED THAT FUSHES AND DRAWS WELL. PT IS ON A 1000 MLS FLUID RESTRICTION. CALL LIGHT IN REACH WILL CONTINUE TO MONITOR.
--- NOTE | 2020-10-05 10:48 | NUR ---
will follow up with son regarding polst and AD
--- NOTE | 2020-10-05 16:11 | NUR ---
PT TRANSFER TO PCU... NO ACUTE NEGATIVE CHANGES NOTED THIS SHIFT. PT'S VS HAVE BEEN STABLE. PT HAS BEEN USING HOME BIPAP PRN NAPS AND WHILE SLEEPING AND HAS BEEN ON RA TO 2L NC WHEN OFF THE BIPAP. PT'S EDEMA CONTINUES TO IMPROVE T/O SHIFT. PICC LINE DRESSING WAS CHANGED THIS SHIFT. PT'S DAUGHTER AT THE BEDSIDE, SHE WAS UPDATED ON PT'S CONDITION, PLAN OF CARE AND PLANS FOR TRANSFER TO PCU. REPORT WAS GIVEN TO JUAN ANTONIO RN IN PCU, ALL OF PT'S BELONGINGS WERE PACKED AND SENT WITH THE PT TO HER NEW ROOM.
--- NOTE | 2020-10-05 17:05 | NUR ---
PT ARRIVED IN THE UNIT FROM ICU, REPORT RECEIVED FROM ALVARO ENGLISH. PT IS ALERT AND ORIENTED X3, AT BASELINE, DAUGHTER AT BEDSIDE. PT ON 1L OF O2 VIA NASAL CANNULA SATS ABOVE 92%, HOME BIPAP TRILOGY AT BEDSIDE. PT HAS 2+ PITTING EDEMA BLE, REDNESS ON PANUS UNDER BREASTS AND FOLDS. HRR AFIB 90'S-110'S, BP SYSTOLIC 140'S, AFEBRILE. PT HAS PANG DRAINING PATENT VIA GRAVITY, URINE DARK YELLOW IN COLOR. PT IN BED EATING DINNER AT THIS TIME WITH NO COMPLAINS, ABLE TO MAKE NEEDS KNOWN CALL LIGHTS IN REACH WILL MONITOR TO UPCOMING SHIFT.
--- NOTE | 2020-10-06 04:59 | NUR ---
SHIFT SUMMARY PT UNABLE TO SLEEP T/O SHIFT. PT ALTERNATED BETWEEN WEARING CPAP AND NC WITH 2-3 L BLEED IN T/O SHIFT. OXYGEN SATURATION MAINTAINED ABOVE 90%. HR TACHYCARDIC AT TIMES. PT HYPOTENSIVE AT TIMES. MAP REMAINED ABOVE 70. HYPERTENSIVE MEDICATIONS AND DIURETIC HELD. MOBILITY ARCHITECT MANAGER NOTIFIED. 0600 DIURETIC GIVEN D/T INCREASE IN BP. PT REFUSED Q 2 TURNS AT TIMES. PANG PATENT AND DRAINING TO GRAVITY. WILL CONTINUE TO MONITOR UNTIL REPORT GIVEN TO DAYSHIFT RN.
[2020-10-06 06:05] LABS: BASOPHILS ABSOLUTE AUTO 0.04 K/mm3 (0.00-0.23); BASOPHILS PERCENT AUTO 1 % (0-2); EOSINOPHILS ABSOLUTE AUTO 0.23 K/mm3 (0.00-0.68); EOSINOPHILS PERCENT AUTO 3 % (0-6); Hematocrit 32.9 % (33.0-51.0); Hemoglobin 9.5 g/dL (11.5-16.0); IMMATURE GRAN ABSOLUTE AUTO 0.04 K/mm3 (0.00-0.10); IMMATURE GRAN PERCENT AUTO 1 % (0-1); LYMPHOCYTES ABSOLUTE AUTO 1.12 K/mm3 (0.84-5.20); LYMPHOCYTES PERCENT AUTO 13 % (21-46); MONOCYTES ABSOLUTE AUTO 0.74 K/mm3 (0.16-1.47); MONOCYTES PERCENT AUTO 9 % (4-13); Mean Corpuscular HGB Conc 28.9 g/dL (31.5-36.5); Mean Corpuscular Volume 97 fL (80-100); Mean Platelet Volume 9.8 fL (9.1-12.4); NEUTROPHILS PERCENT AUTO 75 % (41-73); Platelet Count 164 K/mm3 (150-400); RDW Coefficient Variation 15.7 % (11.7-14.2); RDW Standard Deviation 55.2 fL (35.1-46.3); Red Blood Cell Count 3.39 M/mm3 (3.80-5.20); White Blood Cell Count 8.57 K/mm3 (4.00-11.30)
[2020-10-06 06:25] LABS: Albumin, Blood 2.6 g/dL (3.4-5.0); Anion Gap 3 mmol/L (6-16); Blood Urea Nitrogen 78 mg/dL (8-24); Bun/Creatinine Ratio 58.6 (12.0-20.0); CO2, Blood 44 mmol/L (21-32); Calcium, Blood 9.1 mg/dL (8.5-10.1); Chloride, Blood 97 mmol/L (98-108); Creatinine, Blood 1.33 mg/dL (0.40-1.00); Glomerular Filtration Rate 42 (60-); Glucose, Blood 108 mg/dL (70-99); Magnesium, Blood 1.9 mg/dL (1.6-2.4); Phosphorus, Blood 2.6 mg/dL (2.5-4.9); Potassium, Blood 3.4 mmol/L (3.5-5.5); Sodium, Blood 144 mmol/L (136-145)
[2020-10-06 08:09] LABS: ANTIGLOMERULAR BM AB 9 units (0-20)
--- NOTE | 2020-10-06 09:58 | NUR ---
PT WAS UP IN THE RECLINER AT THIS TIME TRANSFERRED VIA CEILING LIFT. REFUSED TO GET REPOSITIONED IN BED OFFERED TO GET UP IN THE RECLINER INSTEAD PT AGREED. PT COMPLIANT WITH FLUID RESTRICTION. VITALS HRR AFIB 110'S, BP SYSTOLIC 120'S, SATS ABOVE 95% ON 1L OF O2 HAS MILD SOB EARLIER THIS AM O2 TURNED UP TO 2L AND PT WAS RELIEVED REFUSED OFFERED BREATHING TX. NO COMPLAINS AT THIS TIME, ABLE TO MAKE NEEDS KNOWN, CALL LIGHTS IN REACH WILL MONITOR
[2020-10-06 14:08] LABS: M-SPIKE, % Not Observed % (Not Observed); PROTEIN,TOTAL,URINE 7.3 mg/dL (Not Estab.)
--- NOTE | 2020-10-06 18:43 | NUR ---
PT SUMMARY: NO ACUTE CHANGE FOR THE SHIFT, PT PLAN TO DC TOMORROW PER DR KWAN IF PT IS STABLE, SON IS AWARE WOULD LIKE TO SPEAK TO VICE PRESIDENT TAX IN AM BEFORE DISCHARGE. VITALS HAS BEEN STABLE, PT REMIANED ON 1L OF O2 ALL THROUGHTOUT THE SHIFT SATS ABOVE 92%. PT HAS BEEN UP IN THE RECLINER ALL SHIFT, PT WORKED WITH PT/OT RECOMMENDED SNF FOR REHAB FOR PT, PT DECLINES. PT REMAINED ON 1L FLUID RESTRICTION. PT DENIES ANY PAIN, NAUSEA/DIZZINESS. ABLE TO MAKE NEEDS KNOWN, WILL REPORT TO ONCOMING SHIFT
[2020-10-07 05:39] LABS: BASOPHILS ABSOLUTE AUTO 0.03 K/mm3 (0.00-0.23); BASOPHILS PERCENT AUTO 0 % (0-2); EOSINOPHILS ABSOLUTE AUTO 0.22 K/mm3 (0.00-0.68); EOSINOPHILS PERCENT AUTO 3 % (0-6); Hematocrit 33.5 % (33.0-51.0); Hemoglobin 9.4 g/dL (11.5-16.0); IMMATURE GRAN ABSOLUTE AUTO 0.03 K/mm3 (0.00-0.10); IMMATURE GRAN PERCENT AUTO 0 % (0-1); LYMPHOCYTES ABSOLUTE AUTO 1.11 K/mm3 (0.84-5.20); LYMPHOCYTES PERCENT AUTO 14 % (21-46); MONOCYTES ABSOLUTE AUTO 0.66 K/mm3 (0.16-1.47); MONOCYTES PERCENT AUTO 8 % (4-13); Mean Corpuscular HGB 27.6 pg (26.0-34.0); Mean Corpuscular HGB Conc 28.1 g/dL (31.5-36.5); Mean Corpuscular Volume 99 fL (80-100); Mean Platelet Volume 9.7 fL (9.1-12.4); NEUTROPHILS ABSOLUTE AUTO 6.06 K/mm3 (1.96-9.15); NEUTROPHILS PERCENT AUTO 75 % (41-73); Platelet Count 152 K/mm3 (150-400); RDW Coefficient Variation 15.7 % (11.7-14.2); RDW Standard Deviation 56.4 fL (35.1-46.3); White Blood Cell Count 8.11 K/mm3 (4.00-11.30)
--- NOTE | 2020-10-07 05:53 | NUR ---
SHIFT SUMMARY PT ALERT AND ORIENTED X 4. PT ABLE TO ASSIST IN TURNS NEEDED. PT REFUSES Q 2 TURNS AT TIMES. PANG TO GRAVITY DRAIN. HR STABLE. BP STABLE. PT REPORTS NO CP OR PRESSURE. PT WORE OXYGEN AT 1 L AND CPAP AT 3 L BLEED IN T/O SHIFT. OXYGEN SATURATION ABOVE 92%. WILL CONTINUE TO MONITOR UNTIL REPORT GIVEN TO DAYSHIFT RN.
[2020-10-07 05:56] LABS: Albumin, Blood 2.6 g/dL (3.4-5.0); Blood Urea Nitrogen 66 mg/dL (8-24); Calcium, Blood 9.3 mg/dL (8.5-10.1); Chloride, Blood 94 mmol/L (98-108); Glomerular Filtration Rate 47 (60-); Glucose, Blood 100 mg/dL (70-99); Magnesium, Blood 1.8 mg/dL (1.6-2.4); Phosphorus, Blood 2.4 mg/dL (2.5-4.9); Potassium, Blood 3.2 mmol/L (3.5-5.5); Sodium, Blood 142 mmol/L (136-145)
[2020-10-07 06:06] LABS: Anion Gap Unable to Calculate mmol/L (6-16)
[2020-10-07 06:07] LABS: CO2, Blood >45 mmol/L (21-32)
[2020-10-07 06:46] LABS: PO2 Arterial 70.3 mmHg (80-100); pH Blood Arterial 7.45 (7.35-7.45)
[2020-10-07 06:47] LABS: PCO2 Arterial 71.1 mmHg (35-45)
[2020-10-07 07:09] LABS: A/G RATIO 0.8 (0.7-1.7); ALBUMIN 2.9 g/dL (2.9-4.4); ALPHA-1-GLOBULIN 0.3 g/dL (0.0-0.4); ALPHA-2-GLOBULIN 0.6 g/dL (0.4-1.0); BETA GLOBULIN 0.9 g/dL (0.7-1.3); GAMMA GLOBULIN 2.1 g/dL (0.4-1.8); GLOBULIN, TOTAL 3.8 g/dL (2.2-3.9); IMMUNOGLOBULIN A, QN, SERUM 451 mg/dL (64-422); IMMUNOGLOBULIN G, QN, SERUM 1695 mg/dL (586-1602); IMMUNOGLOBULIN M, QN, SERUM 605 mg/dL (26-217); M-SPIKE Not Observed g/dL (Not Observed); PROTEIN, TOTAL, SERUM 6.7 g/dL (6.0-8.5)
[2020-10-07] MEDS ORDERED: ACET325 PO (11:41)
[2020-10-07] MEDS ORDERED: AZIT500 PO (11:42)
[2020-10-07] MEDS ORDERED: CRANBERRY500 M1 PO (11:44)
[2020-10-07] MEDS ORDERED: DOCU100 PO (11:45)
[2020-10-07] MEDS ORDERED: ANTIFUNGAL POWD71 GM TOP (11:46)
[2020-10-07] MEDS ORDERED: ONDA4 PO (11:47)
--- NOTE | 2020-10-07 13:10 | NUR ---
PATIENT AND PATIENT'S SON PROVIDED DISCHARGE INFO REGARDING FOLLOW UP PLANS AND APPOINTMENTS, REASONS TO RETURN TO THE HOSPITAL, MEDICATION INFO, AND LIFESTYLE/DIET RESTRICTIONS AND RECOMMENDATIONS REGARDING CARDIAC DIET AND RENAL CONSIDERATIONS. VERBALIZED UNDERSTANDING. SPOKE WITH PATIENT'S SON OVER PHONE EXTENSIVELY REGARDING DISCHARGE PLANS TO HOME WITH HOME HEALTH, BOTH PATIENT AND SON STATED THAT THEY WERE EQUIPPED AND ABLE TO HAVE PATIENT RETURN TO HOME SAFELY. NO SIGNS OF ACUTE DISTRESS, WCTM.
[2020-10-08 12:10] LABS: ANA DIRECT Negative (Negative); ANTIMYELOPEROXIDASE (MPO) ABS <9.0 U/mL (0.0-9.0); ANTIPROTEINASE 3 (PR-3) ABS <3.5 U/mL (0.0-3.5); ATYPICAL PANCA <1:20 titer (Neg:<1:20); CYTOPLASMIC (C-ANCA) <1:20 titer (Neg:<1:20); PERINUCLEAR (P-ANCA) <1:20 titer (Neg:<1:20)
== END 2020-10-07 14:46 | disposition home health service (06) | DRG 291 ==
LOC: ER 11:14 → ICUW 13:50 → PCU 10-05 15:53 → ENPENDDIS 10-07 09:51 → PCU 10-07 14:46
PROVIDERS: Emergency Medicine; Family Medicine; Internal Medicine; Internal Medicine Critical Care Medicine; Internal Medicine Nephrology; Nurse Practitioner Acute Care; ADMIT Internal Medicine
PROC: 5A09457 Assistance with Respiratory Ventilation, 24-96 Consecutive Hours, Continuous Positive Airway Pressure (ICD-10-PCS; principal; 2020-09-30)
PROC: 02HV33Z Insertion of Infusion Device into Superior Vena Cava, Percutaneous Approach (ICD-10-PCS; 2020-09-30)
PROC: 4A02X4A Measurement of Cardiac Electrical Activity, Guidance, External Approach (ICD-10-PCS; 2020-09-30)
PROC: 3E043XZ Introduction of Vasopressor into Central Vein, Percutaneous Approach (ICD-10-PCS; 2020-10-02)
DX: I13.0 Hypertensive heart and chronic kidney disease with heart failure and stage 1 through stage 4 chronic kidney disease, or unspecified chronic kidney disease (principal); J96.22 Acute and chronic respiratory failure with hypercapnia; G92 Toxic encephalopathy; I50.33 Acute on chronic diastolic (congestive) heart failure; J96.21 Acute and chronic respiratory failure with hypoxia; E87.4 Mixed disorder of acid-base balance; N17.9 Acute kidney failure, unspecified; E66.2 Morbid (severe) obesity with alveolar hypoventilation; Z68.44 Body mass index [BMI] 60.0-69.9, adult; I48.20 Chronic atrial fibrillation, unspecified; N25.81 Secondary hyperparathyroidism of renal origin; E87.1 Hypo-osmolality and hyponatremia; Z20.828 Contact with and (suspected) exposure to other viral communicable diseases; E87.5 Hyperkalemia; E87.70 Fluid overload, unspecified; N18.30 Chronic kidney disease, stage 3 unspecified; E11.22 Type 2 diabetes mellitus with diabetic chronic kidney disease; D64.9 Anemia, unspecified; G25.81 Restless legs syndrome; K21.9 Gastro-esophageal reflux disease without esophagitis; K43.9 Ventral hernia without obstruction or gangrene; F41.9 Anxiety disorder, unspecified; R74.01 Elevation of levels of liver transaminase levels; E03.9 Hypothyroidism, unspecified; E83.39 Other disorders of phosphorus metabolism; I27.23 Pulmonary hypertension due to lung diseases and hypoxia; E87.6 Hypokalemia; I95.9 Hypotension, unspecified; R00.1 Bradycardia, unspecified; Z99.81 Dependence on supplemental oxygen; Z79.899 Other long term (current) drug therapy; Z86.73 Personal history of transient ischemic attack (TIA), and cerebral infarction without residual deficits; Z79.01 Long term (current) use of anticoagulants
CPT/HCPCS: 0202U; 36415; 36569; 36600; 51702; 71045; 71046; 76770; 80048; 80053; 80069; 81001; 81050; 82330; 82533; 82784; 82803; 82947; 83516; 83520; 83735; 83880; 84100; 84132; 84145; 84156; 84165; 84166; 84484; 85014; 85018; 85025; 86038; 86256; 86334; 86335; 87086; 93005; 93010; 94644; 94660; 94664; 94667; 94760; 94762; 96365-59; 96375-59; 97110; 97162; 97166; 97530; 98960; 99285-25; A9270; A9270-GY; C1751; C8929; J0282; J0456; J0610; J0696; J0881; J1265; J1815; J2370; J2405; J3480; J7040; J7042; J7050; J7060; P9046; Q9957

== ENCOUNTER → 2020-10-14 | Outpatient (CLI) | payer MEDICARE ==
[~2020-10-14] MED LIST changes: +ACET325 PO; +ANTIFUNGAL POWD71 GM TOP; +BACTRIM DS TAB1 EAC1 PO; +CEPH500 PO; +CRANBERRY500 M1 PO; +DOCU100 PO; +ONDA4 PO
[2020-10-14 18:51] LABS: Appearance, Urine Clear (Clear); Bilirubin, Urine Neg (Neg); Blood, Urine Neg (Neg); Color, Urine Yellow (P-Yellow); Glucose Qualitative, Urine Neg (Neg); Ketones, Urine Neg (Neg); Leukocyte Esterase, Urine Neg (Neg); Nitrite, Urine Neg (Neg); Protein, Urine Neg (Neg); Urobilinogen, Urine NORM (Normal)
== END | disposition home or self-care (01) ==
LOC: LAB 17:30
PROVIDERS: Internal Medicine
DX: N39.0 Urinary tract infection, site not specified (principal)
CPT/HCPCS: 81003

== ENCOUNTER → 2020-10-20 | Outpatient (CLI) | payer MEDICARE, OTHER ==
[2020-10-20 19:26] LABS: Albumin, Blood 3.2 g/dL (3.4-5.0); Anion Gap 9 mmol/L (6-16); Blood Urea Nitrogen 57 mg/dL (8-24); CO2, Blood 32 mmol/L (21-32); Calcium, Blood 9.1 mg/dL (8.5-10.1); Chloride, Blood 97 mmol/L (98-108); Creatinine, Blood 1.63 mg/dL (0.40-1.00); Glomerular Filtration Rate 33 (60-); Glucose, Blood 127 mg/dL (70-99); Phosphorus, Blood 3.4 mg/dL (2.5-4.9); Potassium, Blood 3.6 mmol/L (3.5-5.5); Sodium, Blood 138 mmol/L (136-145)
[2020-10-21 09:10] LABS: COMPLEMENT C3, SERUM 117 mg/dL (82-167); COMPLEMENT C4, SERUM 11 mg/dL (12-38)
[2020-10-22 19:06] LABS: ANTI-DSDNA ANTIBODIES 6 IU/mL (0-9); SMITH ANTIBODIES <0.2 AI (0.0-0.9)
== END | disposition home or self-care (01) ==
LOC: LAB SHORT 15:20
PROVIDERS: Internal Medicine Nephrology
DX: N18.30 Chronic kidney disease, stage 3 unspecified (principal); D63.1 Anemia in chronic kidney disease; R76.9 Abnormal immunological finding in serum, unspecified; R94.5 Abnormal results of liver function studies; R94.6 Abnormal results of thyroid function studies
CPT/HCPCS: 80069; 85018; 86160; 86225; 86235

== ENCOUNTER 2020-11-26 19:41 | Emergency (ER) | payer MEDICARE, SELFPAY ==
[~2020-11-26] VITALS: Ht 152.4 cm; Wt 117.9 kg
[~2020-11-26 19:41] MED LIST changes: -BACTRIM DS TAB1 EAC1 PO; -CEPH500 PO
[2020-11-26 20:33] LABS: BASOPHILS ABSOLUTE AUTO 0.03 K/mm3 (0.00-0.23); BASOPHILS PERCENT AUTO 0 % (0-2); EOSINOPHILS ABSOLUTE AUTO 0.03 K/mm3 (0.00-0.68); EOSINOPHILS PERCENT AUTO 0 % (0-6); Hematocrit 42.4 % (33.0-51.0); Hemoglobin 12.8 g/dL (11.5-16.0); IMMATURE GRAN ABSOLUTE AUTO 0.05 K/mm3 (0.00-0.10); IMMATURE GRAN PERCENT AUTO 0 % (0-1); LYMPHOCYTES ABSOLUTE AUTO 1.43 K/mm3 (0.84-5.20); LYMPHOCYTES PERCENT AUTO 12 % (21-46); MONOCYTES ABSOLUTE AUTO 0.71 K/mm3 (0.16-1.47); MONOCYTES PERCENT AUTO 6 % (4-13); Mean Corpuscular HGB 26.1 pg (26.0-34.0); Mean Corpuscular HGB Conc 30.2 g/dL (31.5-36.5); Mean Corpuscular Volume 87 fL (80-100); Mean Platelet Volume 9.3 fL (9.1-12.4); NEUTROPHILS ABSOLUTE AUTO 9.88 K/mm3 (1.96-9.15); NEUTROPHILS PERCENT AUTO 82 % (41-73); Platelet Count 309 K/mm3 (150-400); RDW Coefficient Variation 14.9 % (11.7-14.2); RDW Standard Deviation 47.5 fL (35.1-46.3); White Blood Cell Count 12.13 K/mm3 (4.00-11.30)
[2020-11-26 20:54] LABS: Alanine Aminotransfer (ALT/SGP 11 U/L (12-78); Albumin/Globulin Ratio 0.4 (0.8-1.8); Alk Phos 94 U/L (50-136); Anion Gap 11 mmol/L (6-16); Aspartate Aminotrans (AST/SGOT 12 U/L (12-37); Bilirubin, Total 0.4 mg/dL (0.1-1.0); Blood Urea Nitrogen 138 mg/dL (8-24); Bun/Creatinine Ratio 73.8 (12.0-20.0); CO2, Blood 30 mmol/L (21-32); Calcium, Blood 10.5 mg/dL (8.5-10.1); Chloride, Blood 93 mmol/L (98-108); Creatinine, Blood 1.87 mg/dL (0.40-1.00); Globulin, Blood 6.7 g/dL (2.2-4.0); Glomerular Filtration Rate 28 (60-); Glucose, Blood 173 mg/dL (70-99); Potassium, Blood 3.4 mmol/L (3.5-5.5); Sodium, Blood 134 mmol/L (136-145); Total Protein, Blood 9.7 g/dL (6.4-8.2); Troponin I <0.015 ng/mL (0.000-0.040)
[2020-12-11] MEDS ORDERED: BACTRIM DS TAB1 EAC1 PO (16:12)
[2020-12-11] MEDS ORDERED: CEPH500 PO (16:12)
== END 2020-11-26 22:40 | disposition home or self-care (01) ==
LOC: ER 19:41
PROVIDERS: Physician Assistant
DX: I48.91 Unspecified atrial fibrillation (principal); M54.2 Cervicalgia; J44.9 Chronic obstructive pulmonary disease, unspecified; N18.30 Chronic kidney disease, stage 3 unspecified; E11.22 Type 2 diabetes mellitus with diabetic chronic kidney disease; I50.32 Chronic diastolic (congestive) heart failure; K21.9 Gastro-esophageal reflux disease without esophagitis; Z79.899 Other long term (current) drug therapy; Z79.01 Long term (current) use of anticoagulants
CPT/HCPCS: 36415; 71260; 80053; 83880; 84484; 85025; 93005; 93010; 99284-25; Q9967

== ENCOUNTER 2020-12-14 10:54 | Inpatient (IN) | payer MEDICARE, SELFPAY ==
[~2020-12-14] VITALS: Ht 152.4 cm; Wt 125.3 kg
[~2020-12-14 10:54] MED LIST changes: +BACTRIM DS TAB1 EAC1 PO; +CEPH500 PO
[2020-12-14 11:33] LABS: Source, Urine Catheter
[2020-12-14 11:46] LABS: Appearance, Urine Hazy (Clear); Blood, Urine Neg (Neg); Color, Urine Yellow (P-Yellow); Glucose Qualitative, Urine Neg (Neg); Ketones, Urine Neg (Neg); Leukocyte Esterase, Urine 1+ (Neg); Nitrite, Urine Neg (Neg); Protein, Urine 1+ (Neg); Urobilinogen, Urine 1+ (Normal)
[2020-12-14 11:52] LABS: BASOPHILS ABSOLUTE AUTO 0.03 K/mm3 (0.00-0.23); BASOPHILS PERCENT AUTO 0 % (0-2); EOSINOPHILS PERCENT AUTO 1 % (0-6); Hematocrit 35.6 % (33.0-51.0); Hemoglobin 10.8 g/dL (11.5-16.0); IMMATURE GRAN ABSOLUTE AUTO 0.04 K/mm3 (0.00-0.10); IMMATURE GRAN PERCENT AUTO 0 % (0-1); LYMPHOCYTES ABSOLUTE AUTO 0.31 K/mm3 (0.84-5.20); LYMPHOCYTES PERCENT AUTO 3 % (21-46); MONOCYTES ABSOLUTE AUTO 0.36 K/mm3 (0.16-1.47); MONOCYTES PERCENT AUTO 4 % (4-13); Mean Corpuscular HGB 26.2 pg (26.0-34.0); Mean Corpuscular HGB Conc 30.3 g/dL (31.5-36.5); Mean Corpuscular Volume 86 fL (80-100); Mean Platelet Volume 9.2 fL (9.1-12.4); NEUTROPHILS ABSOLUTE AUTO 8.58 K/mm3 (1.96-9.15); NEUTROPHILS PERCENT AUTO 91 % (41-73); Platelet Count 254 K/mm3 (150-400); RDW Coefficient Variation 15.8 % (11.7-14.2); RDW Standard Deviation 49.6 fL (35.1-46.3); Red Blood Cell Count 4.12 M/mm3 (3.80-5.20); White Blood Cell Count 9.42 K/mm3 (4.00-11.30)
[2020-12-14 12:00] LABS: Alanine Aminotransfer (ALT/SGP 14 U/L (12-78); Albumin, Blood 2.3 g/dL (3.4-5.0); Albumin/Globulin Ratio 0.4 (0.8-1.8); Alk Phos 107 U/L (50-136); Anion Gap 11 mmol/L (6-16); Aspartate Aminotrans (AST/SGOT 18 U/L (12-37); Bilirubin, Total 0.3 mg/dL (0.1-1.0); Blood Urea Nitrogen 145 mg/dL (8-24); Bun/Creatinine Ratio 33.9 (12.0-20.0); CO2, Blood 25 mmol/L (21-32); Calcium, Blood 8.8 mg/dL (8.5-10.1); Chloride, Blood 92 mmol/L (98-108); Creatinine, Blood 4.28 mg/dL (0.40-1.00); Globulin, Blood 5.5 g/dL (2.2-4.0); Glomerular Filtration Rate 11 (60-); Glucose, Blood 158 mg/dL (70-99); Magnesium, Blood 2.2 mg/dL (1.6-2.4); Potassium, Blood 4.3 mmol/L (3.5-5.5); Sodium, Blood 128 mmol/L (136-145); Total Protein, Blood 7.8 g/dL (6.4-8.2); Troponin I <0.015 ng/mL (0.000-0.040)
[2020-12-14 12:07] LABS: Bilirubin, Urine 3+ (Neg); Red Blood Cells, Urine 0-2 /hpf (0-2)
[2020-12-14 12:08] LABS: Amorphous Heavy (0-Heavy); Bacteria Few /hpf; Squamous Epithelial Cells Many /hpf (Few); Transitional Epithelial Cells Few /hpf (0-Rare)
--- NOTE | 2020-12-14 16:30 | NUR ---
ASSUMED CARE: PT ARRIVED TO UNIT WITH HR IN 120S AND SBP IN 90S, MAP 70S. INSTRUCTED BY DR STANLEY TO FINISH THIS BOLUS AND RECHECK BP AND CALL WITH RESULTS. PT AFIB ON TELE. PT'S SON AT BEDSIDE AND ANSWERS RN'S ADMISSION QUESTIONS. PT NOTED TO HAVE REDNESS TO RIGHT INDEX JOINT AND LEFT ELBOW WITH UNKNOWN CAUSE BUT LINES DRAWN AROUND REDNESS. DR STANLEY STATES SHE SPOKE WITH DR MCKEON REGARDING PT.
--- NOTE | 2020-12-14 17:00 | NUR ---
CALL TO DR STANLEY REGARDING REPEAT BP AFTER BOLUS. INSTRUCTED BY DR STANLEY TO FINISH CURRENT BAG AND GIVE 500 MORE MLS. SEE VITALS
--- NOTE | 2020-12-14 17:30 | NUR ---
CALL TO DR STANLEY WITH LATEST VITAL SIGNS. ORDER TO GIVE ONE TIME DOSE OF IV METOPROLOL AND TO GET FLUID ORDERS PER DR MCKEON. CALL TO DR MCKEON AND RECIEVED FLUID ORDERS AFTER REVIEWING LABS. PT AGREEABLE TO CURRENT PLAN AND DENIES NEEDS AT THIS TIME.
[2020-12-15 00:41] LABS: Source, Urine Catheter
[2020-12-15 00:45] LABS: Blood, Urine Neg (Neg); Glucose Qualitative, Urine Neg (Neg); Ketones, Urine Neg (Neg); Leukocyte Esterase, Urine 1+ (Neg); Nitrite, Urine Neg (Neg); Protein, Urine 1+ (Neg); Specific Gravity, Urine 1.015 (1.003-1.022); Urobilinogen, Urine NORM (Normal)
[2020-12-15 00:48] LABS: Appearance, Urine Clear (Clear); Bilirubin, Urine 2+ (Neg); Color, Urine Yellow (P-Yellow)
[2020-12-15 00:55] LABS: Amorphous Light (0-Heavy); Bacteria Few /hpf; Granular Casts 0-2 /lpf (0); Mucus Light (0-Heavy); Red Blood Cells, Urine Not Seen /hpf (0-2); Squamous Epithelial Cells Few /hpf (Few); White Blood Cells, Urine 0-2 /hpf (0-5)
[2020-12-15 04:42] LABS: BASOPHILS ABSOLUTE AUTO 0.02 K/mm3 (0.00-0.23); BASOPHILS PERCENT AUTO 0 % (0-2); EOSINOPHILS ABSOLUTE AUTO 0.12 K/mm3 (0.00-0.68); EOSINOPHILS PERCENT AUTO 2 % (0-6); Hemoglobin 10.3 g/dL (11.5-16.0); IMMATURE GRAN ABSOLUTE AUTO 0.03 K/mm3 (0.00-0.10); IMMATURE GRAN PERCENT AUTO 0 % (0-1); LYMPHOCYTES ABSOLUTE AUTO 0.46 K/mm3 (0.84-5.20); LYMPHOCYTES PERCENT AUTO 6 % (21-46); MONOCYTES ABSOLUTE AUTO 0.35 K/mm3 (0.16-1.47); MONOCYTES PERCENT AUTO 5 % (4-13); Mean Corpuscular HGB 26.1 pg (26.0-34.0); Mean Corpuscular HGB Conc 30.3 g/dL (31.5-36.5); Mean Corpuscular Volume 86 fL (80-100); Mean Platelet Volume 9.3 fL (9.1-12.4); NEUTROPHILS ABSOLUTE AUTO 6.51 K/mm3 (1.96-9.15); NEUTROPHILS PERCENT AUTO 87 % (41-73); Platelet Count 254 K/mm3 (150-400); RDW Coefficient Variation 15.8 % (11.7-14.2); RDW Standard Deviation 49.6 fL (35.1-46.3); Red Blood Cell Count 3.94 M/mm3 (3.80-5.20); White Blood Cell Count 7.49 K/mm3 (4.00-11.30)
[2020-12-15 05:01] LABS: Albumin, Blood 2.2 g/dL (3.4-5.0); Anion Gap 9 mmol/L (6-16); Blood Urea Nitrogen 135 mg/dL (8-24); Bun/Creatinine Ratio 37.3 (12.0-20.0); CO2, Blood 24 mmol/L (21-32); Calcium, Blood 8.5 mg/dL (8.5-10.1); Chloride, Blood 98 mmol/L (98-108); Creatinine, Blood 3.62 mg/dL (0.40-1.00); Glomerular Filtration Rate 13 (60-); Glucose, Blood 124 mg/dL (70-99); Magnesium, Blood 2.1 mg/dL (1.6-2.4); Phosphorus, Blood 4.6 mg/dL (2.5-4.9); Potassium, Blood 4.5 mmol/L (3.5-5.5); Sodium, Blood 131 mmol/L (136-145)
--- NOTE | 2020-12-15 08:01 | NUR ---
SHIFT SUMMARY PATIENT IS ALERT, ORIENTED, AND COOPERATIVE WITH CARE. 1 PERSON ASSITS WITH Q2H TURNS AND TOILETING. BLADDER SCAN DONE PATIENT RETAINING 374, DR CALLED AND PANG CATHETER INSERTED. HR A.FIB 100-120s AND WOULD INCREASE WITH ACTIVITY. 02 SATS >90% ON RA AT BEGINNING OF SHIFT, PATIENT STARTED TO FALL ASLEEP AND NEEDED 1L VIA NC. PATIENT WAS THEN SWITCHED TO CPAP AND WORE IS THE REST OF THE SHIFT WHILE SLEEPING. CALL LIGHT IN REACH.
--- NOTE | 2020-12-15 12:20 | NUR ---
Upon receiving an admit referral for spiritual care, I visit patient. Patient is sitting up in bed and alert. Patient tells me about the reason for hospitalization. Then she talks about how she is not presybeterian at all but finds her strength and motivation from her grandchildren and family. She explains that she has 4 of her grown children living with her and that she has much support at home. I normalize patient's experience and provide a calming presence and therapeutic listening. Patient responds well and shows signs of an elevated mood.
--- NOTE | 2020-12-15 18:30 | NUR ---
SHIFT SUMMARY: PT CONTINUES A&O, USING CALL LIGHT APPROPRIATELY, MAINTAINING O2 SATS >92% WHILE ON O2 VIA NC AT 1 L/MIN, AFIB CONTINUES ON MONITOR, RATE APPROX 85-120. MAINTENANCE FLUIDS CONTINUE, PT'S BP HAS MAINTAINED >100 SYSTOLIC. INDWELLING PANG CONTINUES TO DRAIN DARK YELLOW URINE, PT C/O CONSTIPATION THIS AFTERNOON, MEDICATED PER EMAR WITH PRN MEDS. WILL CONTINUE TO MONITOR AND TREAT ACCORDINGLY UNTIL CHANGE OF SHIFT.
[2020-12-16 04:19] LABS: BASOPHILS ABSOLUTE AUTO 0.01 K/mm3 (0.00-0.23); BASOPHILS PERCENT AUTO 0 % (0-2); EOSINOPHILS ABSOLUTE AUTO 0.11 K/mm3 (0.00-0.68); EOSINOPHILS PERCENT AUTO 2 % (0-6); Hematocrit 32.6 % (33.0-51.0); Hemoglobin 9.9 g/dL (11.5-16.0); IMMATURE GRAN ABSOLUTE AUTO 0.03 K/mm3 (0.00-0.10); IMMATURE GRAN PERCENT AUTO 1 % (0-1); LYMPHOCYTES PERCENT AUTO 10 % (21-46); MONOCYTES ABSOLUTE AUTO 0.37 K/mm3 (0.16-1.47); MONOCYTES PERCENT AUTO 6 % (4-13); Mean Corpuscular HGB 26.3 pg (26.0-34.0); Mean Corpuscular HGB Conc 30.4 g/dL (31.5-36.5); Mean Corpuscular Volume 87 fL (80-100); Mean Platelet Volume 9.4 fL (9.1-12.4); NEUTROPHILS ABSOLUTE AUTO 4.77 K/mm3 (1.96-9.15); NEUTROPHILS PERCENT AUTO 81 % (41-73); Platelet Count 234 K/mm3 (150-400); RDW Coefficient Variation 15.9 % (11.7-14.2); RDW Standard Deviation 49.7 fL (35.1-46.3); Red Blood Cell Count 3.77 M/mm3 (3.80-5.20); White Blood Cell Count 5.89 K/mm3 (4.00-11.30)
[2020-12-16 04:40] LABS: Albumin, Blood 2.2 g/dL (3.4-5.0); Anion Gap 10 mmol/L (6-16); Blood Urea Nitrogen 120 mg/dL (8-24); Bun/Creatinine Ratio 44.9 (12.0-20.0); CO2, Blood 22 mmol/L (21-32); Calcium, Blood 8.4 mg/dL (8.5-10.1); Chloride, Blood 101 mmol/L (98-108); Creatinine, Blood 2.67 mg/dL (0.40-1.00); Glomerular Filtration Rate 19 (60-); Glucose, Blood 85 mg/dL (70-99); Magnesium, Blood 2.1 mg/dL (1.6-2.4); Phosphorus, Blood 3.5 mg/dL (2.5-4.9); Sodium, Blood 133 mmol/L (136-145)
--- NOTE | 2020-12-16 04:50 | NUR ---
SHIFT SUMMARY PATIENT IS ALERT, ORIENTED AND COOPERATIVE WITH CARE. USES BEDPAN APPROPRIATELY. POLY BUTLER. Q2 HOUR REPOSITIONING. TALKED WITH PATIENTS SON MICHELLE, HE WAS CONCERNED ABOUT HER NOT USING HER CPAP ENOUGH. TALKED WITH PATIENT AND SHE AGREED TO PUT HER CPAP ON AND WORE IT THROUGH THE NIGHT. BP IMPROVING, LAST SYSTOLIC OF 117. 02 SATS >90% ON CPAP WITH 1L 02. HR IS A.FIB 100s-120s, INCREASES WITH ACTIVITY. CALL LIGHT IN REACH.
--- NOTE | 2020-12-16 18:07 | NUR ---
SHIFT SUMMARY: PT CONTINUES A&OX4 T/OUT SHIFT, C/O INTERMITTENT DIZZINESS AND MEDICATED PER EMAR. PT ON ROOM AIR MOST OF THE SHIFT, WAS PLACED ON 1 L/MIN VIA NC FOR C/O FEELING SOB, PT CHANGED POSITION TO SITTING AT BEDSIDE AND REPORTED IMPROVEMENT OF SOB, O2 REMOVED AND PT MAINTAINING SATS >91% ON ROOM AIR. AFIB CONTINUES WITH RATE RANGING 90-115 BPM WHILE AT REST. NO WORSENING OF REDNESS OR SWELLING NOTED TO L ELBOW AND R KNUCKLE. INDWELLING PANG CONTINUES, DRAINING TO GRAVITY. PT PENDING TRANSFER TO MEDICAL DEPT, WILL CONTINUE TO MONITOR AND TREAT ACCORDINGLY UNTIL CHANGE OF SHIFT.
--- NOTE | 2020-12-16 19:38 | NUR ---
ASSUMPTION OF CARE. PATIENT ARRIVED TO ROOM EARLIER, HELPED TO GET HER TRANSFERRED TO THE BED. REPOSITIONED, BOOSTED UP. OXYGEN WAS PLACED. SOB WITH EXERTION MORE THEN HER USUAL. NO CHEST PAIN. HR AFIB, IRREGULAR. NO CP, OR PALPITATIONS. ABDOMINAL HERNIA PROTRUDING, ROUND ABDOMIN, STATES IS HER NORM. HYPOACTIVE. GOOD APPETITE. DENIES ANY PAIN OR DISCOMFORT. SKIN PWD. LEFT ELBOW AND RIGHT THUMB ARE MARKED BUT REDNESS IS ALMOST GONE, NORMAL SKIN TEMP, MINIMAL PAIN SHE STATES. CALL LIGHT IS IN REACH AND USED APPROPRIATLY.
[2020-12-17 04:59] LABS: BASOPHILS ABSOLUTE AUTO 0.01 K/mm3 (0.00-0.23); BASOPHILS PERCENT AUTO 0 % (0-2); EOSINOPHILS ABSOLUTE AUTO 0.06 K/mm3 (0.00-0.68); EOSINOPHILS PERCENT AUTO 1 % (0-6); Hematocrit 34.5 % (33.0-51.0); Hemoglobin 10.5 g/dL (11.5-16.0); IMMATURE GRAN ABSOLUTE AUTO 0.02 K/mm3 (0.00-0.10); IMMATURE GRAN PERCENT AUTO 0 % (0-1); LYMPHOCYTES ABSOLUTE AUTO 0.81 K/mm3 (0.84-5.20); LYMPHOCYTES PERCENT AUTO 13 % (21-46); MONOCYTES ABSOLUTE AUTO 0.38 K/mm3 (0.16-1.47); MONOCYTES PERCENT AUTO 6 % (4-13); Mean Corpuscular HGB 26.5 pg (26.0-34.0); Mean Corpuscular HGB Conc 30.4 g/dL (31.5-36.5); Mean Corpuscular Volume 87 fL (80-100); Mean Platelet Volume 9.3 fL (9.1-12.4); NEUTROPHILS PERCENT AUTO 79 % (41-73); Platelet Count 247 K/mm3 (150-400); RDW Coefficient Variation 15.9 % (11.7-14.2); RDW Standard Deviation 49.6 fL (35.1-46.3); Red Blood Cell Count 3.96 M/mm3 (3.80-5.20); White Blood Cell Count 6.08 K/mm3 (4.00-11.30)
[2020-12-17 05:23] LABS: Albumin, Blood 2.4 g/dL (3.4-5.0); Anion Gap 5 mmol/L (6-16); Blood Urea Nitrogen 97 mg/dL (8-24); Bun/Creatinine Ratio 55.4 (12.0-20.0); CO2, Blood 29 mmol/L (21-32); Calcium, Blood 8.7 mg/dL (8.5-10.1); Chloride, Blood 104 mmol/L (98-108); Creatinine, Blood 1.75 mg/dL (0.40-1.00); Glomerular Filtration Rate 30 (60-); Glucose, Blood 99 mg/dL (70-99); Magnesium, Blood 2.1 mg/dL (1.6-2.4); Phosphorus, Blood 2.8 mg/dL (2.5-4.9); Sodium, Blood 138 mmol/L (136-145)
--- NOTE | 2020-12-17 06:32 | NUR ---
SHIFT SUMMARY: VS SHOWED TACHYCARDIA RUNNING IN THE 110'S WHICH TELE CONFIRMED. NO CHEST PAIN OR PALPITATIONS THIS SHIFT. CELLULITIS OF THE ELBOW AND HAND IMPROVING, REDNESS ALMOST GONE. MILD REDNESS TO BLE. BLOOD SUGARS BELOW 150, NO COVERAGE. DIZZY THIS AM, GAVE PRN MECLAZINE. WORE CPAP LAST NIGHT FOR SLEEPING. HOPES TO GO HOME TODAY. CALL LIGHT IN REACH.
--- NOTE | 2020-12-17 17:50 | NUR ---
PT QUITE PLEASANT TODAY. NO C/O PAIN. GOING TO GET MRI THIS VALERIE TO SEE WHAT MIGHT BE CAUSE OF DIZZINESS. PT DAUGHTER IN THIS AFT. NO OTHER CONCERNS TODAY. BED IN LOW POSITION, CALLLITE IN REACH, CQLLS APPROP
[2020-12-18 05:13] LABS: Hematocrit 37.3 % (33.0-51.0)
[2020-12-18 05:36] LABS: Albumin, Blood 2.3 g/dL (3.4-5.0); Anion Gap 5 mmol/L (6-16); Blood Urea Nitrogen 71 mg/dL (8-24); Bun/Creatinine Ratio 61.7 (12.0-20.0); CO2, Blood 29 mmol/L (21-32); Calcium, Blood 9.3 mg/dL (8.5-10.1); Chloride, Blood 106 mmol/L (98-108); Creatinine, Blood 1.15 mg/dL (0.40-1.00); Glomerular Filtration Rate 49 (60-); Glucose, Blood 99 mg/dL (70-99); Magnesium, Blood 2.3 mg/dL (1.6-2.4); Phosphorus, Blood 2.3 mg/dL (2.5-4.9); Potassium, Blood 3.8 mmol/L (3.5-5.5); Sodium, Blood 140 mmol/L (136-145)
--- NOTE | 2020-12-18 06:24 | NUR ---
SHIFT SUMMARY PT IS A 75 Y/O FEMALE, ADMITTED FOR RAPID AFIB. PT IS A&O X 4, 1-2PA TO BSC. PANG IN PLACE FOR RETENTION, DRAINING CLEAR YELLOW URINE. NO C/O PAIN, NAUSEA OR SOB. VITAL SIGN STABLE. PT SLEPT WELL THROUGH THE NIGHT. NO ACUTE CHANGES IN PT CONDITION NOTED. WILL CONTINUE TO MONITOR AND TREAT PER EMAR UNTIL HAND OFF TO DAY SHIFT RN.
--- NOTE | 2020-12-18 15:07 | NUR ---
DISCHARGE SUMMARY PATIENT DISCHARGED TO HOME WITH HOME HEALTH. PATIENT ALERT AND ORIENTED THIS SHIFT. PATIENT DENIES PAIN THROUGHOUT THIS SHIFT. PATIENT DRESSED FOR DISCHARGE WHILE WORKING WITH PHYSICAL THERAPY. IV REMOVED PRIOR TO DISCHARGE. PATIENT STATES UNDERSTANDING OF DISCHARGE AND MEDICATION INSTRUCTIONS. PATIENT TRANSFERED TO WHEELCHAIR INDEPENDENTLY FOR DISCHARGE. PATIENT TO VEHICLE WITH LACEY Quesada CNA.
== END 2020-12-18 15:14 | disposition home health service (06) | DRG 312 ==
LOC: ER 10:54 → ERHOLD 13:11 → PCU 13:11 → MEDS 13:11 → PCU 16:14 → MEDS 12-16 19:03
PROVIDERS: Emergency Medicine; Internal Medicine Nephrology; ADMIT Family Medicine
PROC: 5A09357 Assistance with Respiratory Ventilation, Less than 24 Consecutive Hours, Continuous Positive Airway Pressure (ICD-10-PCS; principal; 2020-12-14)
DX: I95.2 Hypotension due to drugs (principal); I50.32 Chronic diastolic (congestive) heart failure; Z68.43 Body mass index [BMI] 50.0-59.9, adult; L03.115 Cellulitis of right lower limb; E87.1 Hypo-osmolality and hyponatremia; N17.9 Acute kidney failure, unspecified; E86.0 Dehydration; J44.9 Chronic obstructive pulmonary disease, unspecified; I27.20 Pulmonary hypertension, unspecified; N18.30 Chronic kidney disease, stage 3 unspecified; E03.9 Hypothyroidism, unspecified; E88.09 Other disorders of plasma-protein metabolism, not elsewhere classified; G47.30 Sleep apnea, unspecified; E66.01 Morbid (severe) obesity due to excess calories; L27.0 Generalized skin eruption due to drugs and medicaments taken internally; T36.8X5A Adverse effect of other systemic antibiotics, initial encounter; Y92.9 Unspecified place or not applicable; T50.2X5A Adverse effect of carbonic-anhydrase inhibitors, benzothiadiazides and other diuretics, initial encounter
CPT/HCPCS: 36415; 51702; 70551; 71045; 76770; 80053; 80069; 81001; 82947; 83605; 83735; 83880; 84145; 84484; 85014; 85018; 85025; 87040; 87086; 93005; 93010; 94762; 96361; 96365; 96374; 96375; 97110; 97116; 97161; 97165; 97530; 99284-25; 99285-25; A9270; J0690; J0881; J1815; J3480; J7030; J7060; P9612

== ENCOUNTER → 2020-12-23 | Outpatient (CLI) | payer MEDICARE ==
[2020-12-23 13:50] LABS: Albumin, Blood 2.6 g/dL (3.4-5.0); Anion Gap 7 mmol/L (6-16); Blood Urea Nitrogen 69 mg/dL (8-24); Bun/Creatinine Ratio 34.5 (12.0-20.0); CO2, Blood 29 mmol/L (21-32); Chloride, Blood 101 mmol/L (98-108); Glomerular Filtration Rate 26 (60-); Glucose, Blood 121 mg/dL (70-99); Phosphorus, Blood 3.6 mg/dL (2.5-4.9); Potassium, Blood 4.2 mmol/L (3.5-5.5); Sodium, Blood 137 mmol/L (136-145); Uric Acid, Blood 11.9 mg/dL (2.6-6.0)
== END | disposition home or self-care (01) ==
LOC: LAB SHORT 11:10 → LAB SRC 11:10
PROVIDERS: Internal Medicine Nephrology
DX: N18.30 Chronic kidney disease, stage 3 unspecified (principal); D63.1 Anemia in chronic kidney disease; N25.81 Secondary hyperparathyroidism of renal origin; E55.9 Vitamin D deficiency, unspecified; R76.9 Abnormal immunological finding in serum, unspecified; R94.5 Abnormal results of liver function studies; R94.6 Abnormal results of thyroid function studies
CPT/HCPCS: 36415; 80069; 84443; 84550; 85018

== ENCOUNTER → 2021-01-01 | Outpatient (CLI) | payer MEDICARE ==
[2021-01-01 16:43] LABS: Albumin, Blood 3.1 g/dL (3.4-5.0); Anion Gap 7 mmol/L (6-16); Blood Urea Nitrogen 97 mg/dL (8-24); Bun/Creatinine Ratio 59.5 (12.0-20.0); CO2, Blood 33 mmol/L (21-32); Calcium, Blood 9.6 mg/dL (8.5-10.1); Chloride, Blood 92 mmol/L (98-108); Creatinine, Blood 1.63 mg/dL (0.40-1.00); Glomerular Filtration Rate 33 (60-); Glucose, Blood 183 mg/dL (70-99); Magnesium, Blood 1.8 mg/dL (1.6-2.4); Phosphorus, Blood 3.8 mg/dL (2.5-4.9); Potassium, Blood 3.5 mmol/L (3.5-5.5); Sodium, Blood 132 mmol/L (136-145)
== END | disposition home or self-care (01) ==
LOC: LAB 15:01 → LAB SHORT 15:01
PROVIDERS: Internal Medicine Nephrology
DX: N18.4 Chronic kidney disease, stage 4 (severe) (principal); D63.1 Anemia in chronic kidney disease
CPT/HCPCS: 80069; 83735; 85018

== ENCOUNTER 2021-06-27 00:49 | Inpatient (IN) | payer MEDICARE ==
[~2021-06-27] VITALS: Ht 160 cm; Wt 126.0 kg
[2021-06-27 01:16] LABS: BASOPHILS ABSOLUTE AUTO 0.02 K/mm3 (0.00-0.23); BASOPHILS PERCENT AUTO 0 % (0-2); EOSINOPHILS ABSOLUTE AUTO 0.03 K/mm3 (0.00-0.68); EOSINOPHILS PERCENT AUTO 1 % (0-6); Hematocrit 38.5 % (33.0-51.0); Hemoglobin 11.2 g/dL (11.5-16.0); IMMATURE GRAN ABSOLUTE AUTO 0.06 K/mm3 (0.00-0.10); IMMATURE GRAN PERCENT AUTO 1 % (0-1); LYMPHOCYTES ABSOLUTE AUTO 0.38 K/mm3 (0.84-5.20); LYMPHOCYTES PERCENT AUTO 6 % (21-46); MONOCYTES ABSOLUTE AUTO 0.36 K/mm3 (0.16-1.47); MONOCYTES PERCENT AUTO 6 % (4-13); Mean Corpuscular HGB 27.9 pg (26.0-34.0); Mean Corpuscular HGB Conc 29.1 g/dL (31.5-36.5); Mean Corpuscular Volume 96 fL (80-100); Mean Platelet Volume 10.4 fL (9.1-12.4); NEUTROPHILS ABSOLUTE AUTO 5.37 K/mm3 (1.96-9.15); NEUTROPHILS PERCENT AUTO 86 % (41-73); Platelet Count 154 K/mm3 (150-400); RDW Coefficient Variation 16.8 % (11.7-14.2); RDW Standard Deviation 59.4 fL (35.1-46.3); Red Blood Cell Count 4.02 M/mm3 (3.80-5.20); White Blood Cell Count 6.22 K/mm3 (4.00-11.30)
[2021-06-27 01:36] LABS: Albumin, Blood 3.1 g/dL (3.4-5.0); Albumin/Globulin Ratio 0.6 (0.8-1.8); Bilirubin, Total 0.4 mg/dL (0.1-1.0); Calcium, Blood 8.9 mg/dL (8.5-10.1); Creatinine, Blood 2.23 mg/dL (0.40-1.00); Globulin, Blood 5.6 g/dL (2.2-4.0); Potassium, Blood 4.9 mmol/L (3.5-5.5); Total Protein, Blood 8.7 g/dL (6.4-8.2)
[2021-06-27 05:07] LABS: Source, Urine Catheter
[2021-06-27 05:09] LABS: Bilirubin, Urine Neg (Neg); Blood, Urine Neg (Neg); Glucose Qualitative, Urine Neg (Neg); Ketones, Urine Neg (Neg); Leukocyte Esterase, Urine 2+ (Neg); Nitrite, Urine Neg (Neg); Protein, Urine 1+ (Neg); Urobilinogen, Urine NORM (Normal)
[2021-06-27 05:21] LABS: PCO2 Arterial > 105 mmHg (35-45); PO2 Arterial 70.1 mmHg (80-100); pH Blood Arterial 7.15 (7.35-7.45)
[2021-06-27 05:23] LABS: Appearance, Urine Hazy (Clear); Bacteria Mod /hpf; Color, Urine Yellow (P-Yellow); Red Blood Cells, Urine 0-2 /hpf (0-2); Squamous Epithelial Cells Few /hpf (Few); White Blood Cells, Urine 50-100 /hpf (0-5)
[2021-06-27 06:51] LABS: U Amphetamine Screen Not Detected; U Barbituate Screen Not Detected; U Benzodiazapine Screen Not Detected; U Cannabinoids Screen Not Detected; U Cocaine Screen Not Detected; U Methadone Screen Not Detected; U Methamphetamine Screen Not Detected; U Opiates Screen Not Detected; U Phencyclidine Screen Not Detected
[2021-06-27 06:52] LABS: U Buprenorphine Screen Not Detected; U Oxycodone Screen Not Detected; U Propoxyphene Screen Not Detected
[2021-06-27 07:27] LABS: SARS-Cov-2 (COVID-19) PCR, MMC POSITIVE (NEGATIVE)
[2021-06-27 07:42] LABS: Free Thyroxine 0.99 ng/dL (0.70-1.60); Thyroid Stimulating Hormone 4.15 uIU/mL (0.360-4.800)
--- NOTE | 2021-06-27 10:46 | NUR ---
pt on bipap holding her own alert wants coffee. edema 3 plus. discussion with son advised him we will certified caregiver her all the treatment we can and respect her dnr status advised him that if she declines we will need to place her on comfort measures so they can be wih her and she does not suffer. son was understanding of that plan. this copywriter has spoke with this pt on previous admits and she would not want to suffer and be away from her wonderful family.
[2021-06-27 13:17] LABS: BASOPHILS ABSOLUTE AUTO 0.01 K/mm3 (0.00-0.23); BASOPHILS PERCENT AUTO 0 % (0-2); EOSINOPHILS PERCENT AUTO 0 % (0-6); Hematocrit 36.2 % (33.0-51.0); Hemoglobin 10.4 g/dL (11.5-16.0); IMMATURE GRAN ABSOLUTE AUTO 0.05 K/mm3 (0.00-0.10); IMMATURE GRAN PERCENT AUTO 1 % (0-1); LYMPHOCYTES ABSOLUTE AUTO 0.24 K/mm3 (0.84-5.20); LYMPHOCYTES PERCENT AUTO 5 % (21-46); MONOCYTES ABSOLUTE AUTO 0.11 K/mm3 (0.16-1.47); MONOCYTES PERCENT AUTO 2 % (4-13); Mean Corpuscular HGB Conc 28.7 g/dL (31.5-36.5); Mean Corpuscular Volume 97 fL (80-100); NEUTROPHILS ABSOLUTE AUTO 4.56 K/mm3 (1.96-9.15); NEUTROPHILS PERCENT AUTO 92 % (41-73); Platelet Count 127 K/mm3 (150-400); RDW Coefficient Variation 16.8 % (11.7-14.2); RDW Standard Deviation 59.7 fL (35.1-46.3); Red Blood Cell Count 3.72 M/mm3 (3.80-5.20); White Blood Cell Count 4.97 K/mm3 (4.00-11.30)
[2021-06-27 13:36] LABS: Albumin, Blood 2.8 g/dL (3.4-5.0); Albumin/Globulin Ratio 0.6 (0.8-1.8); Bilirubin, Total 0.5 mg/dL (0.1-1.0); Bun/Creatinine Ratio 43.3 (12.0-20.0); Calcium, Blood 8.3 mg/dL (8.5-10.1); Creatinine, Blood 2.24 mg/dL (0.40-1.00); Globulin, Blood 4.8 g/dL (2.2-4.0); Potassium, Blood 4.7 mmol/L (3.5-5.5); Total Protein, Blood 7.6 g/dL (6.4-8.2)
[2021-06-27 16:59] LABS: PCO2 Arterial 79.2 mmHg (35-45); PO2 Arterial 73.2 mmHg (80-100); pH Blood Arterial 7.27 (7.35-7.45)
--- NOTE | 2021-06-27 18:17 | NUR ---
pt getting sicker review of plan of care with intesivist. Will continue to folllow. No plans to escalte care will transition to comfort is gets significantly worse.
--- NOTE | 2021-06-27 18:29 | NUR ---
PT IS AN ER ADMIT FROM THIS AFTERNOON. PT ON BIPAP O2 SATURATION MID 90'S. CT WAS DONE ON PT, FINDINGS REPORTED TO PROVIDER. DEEP SUCTIONS PEFORMED BY RESPIRATORY THERAPY AND SOME SERECTIONS REMOVED. WHEN PT CAME TO FLOOR SHE WAS ABLE TO ANSWER QUESTIONS AND MAKE NEEDS KNOWN. PT COMPLAINED OF RESTLESS LEG, RUBBED PT LEGS AND PT STATED THAT IT HELPED. PALLIATIVE CARE NOTIFED OF CHEST CT FINDINGS. PT STABLE AND WILL CONTINUE TO MONITOR UNTIL SHIFT CHANGE.
--- NOTE | 2021-06-28 01:04 | NUR ---
PATIENTS DAUGHTER TERE CALLED. OBTAINED CONSENT FROM PATIENT TO SPEAK TO HER. UPDATED TERE ON PATIENTS CONDITION TONMELVA.
[2021-06-28 05:52] LABS: BASOPHILS ABSOLUTE AUTO 0.01 K/mm3 (0.00-0.23); BASOPHILS PERCENT AUTO 0 % (0-2); EOSINOPHILS PERCENT AUTO 0 % (0-6); Hematocrit 33.6 % (33.0-51.0); Hemoglobin 9.9 g/dL (11.5-16.0); IMMATURE GRAN ABSOLUTE AUTO 0.03 K/mm3 (0.00-0.10); IMMATURE GRAN PERCENT AUTO 1 % (0-1); LYMPHOCYTES ABSOLUTE AUTO 0.31 K/mm3 (0.84-5.20); LYMPHOCYTES PERCENT AUTO 5 % (21-46); MONOCYTES ABSOLUTE AUTO 0.35 K/mm3 (0.16-1.47); MONOCYTES PERCENT AUTO 6 % (4-13); Mean Corpuscular HGB 27.7 pg (26.0-34.0); Mean Corpuscular HGB Conc 29.5 g/dL (31.5-36.5); Mean Corpuscular Volume 94 fL (80-100); Mean Platelet Volume 10.4 fL (9.1-12.4); NEUTROPHILS PERCENT AUTO 88 % (41-73); Platelet Count 133 K/mm3 (150-400); RDW Coefficient Variation 16.6 % (11.7-14.2); RDW Standard Deviation 57.4 fL (35.1-46.3); Red Blood Cell Count 3.58 M/mm3 (3.80-5.20)
--- NOTE | 2021-06-28 06:15 | NUR ---
ASSUMED CARE OF PATIENT AT 1900. PATIENT IS A/Ox4, BUT SLEEPY. +2 BLE PITTING EDEMA WITH STASIS DRYIING OF THE LOWER LEGS. PATIENT WAS GIVEN A BED BATH, ALL FOLDS ARE VERY RED WITH SOME WEEPING SEROUS FLUID. COARSE BREATH SOUNDS THROUGH OUT. SATTING AT 96% WITH 50% FIO2 WITH A NONPRODUCTIVE COUGH. AFIB AVERAGING 116 PER TELEMETRY. PAIN IN R KNEE/THIGH AREA RELATED TO OLD INJURY REPAIR. K-PAD APPLIED. SKIN TEARS IN ASSESSMENTS AND PHOTOS AND CONSENT RECEIVED. PATIENT GAVE CONSENT FOR DAUGHTER TERE TO RECEIVE INFORMATION. CALLED TERE BACK AND UPDATED. WILL REPORT TO ONCOMING NURSE.
[2021-06-28 06:24] LABS: Anion Gap 7 mmol/L (6-16); Blood Urea Nitrogen 101 mg/dL (8-24); Bun/Creatinine Ratio 46.5 (12.0-20.0); CO2, Blood 35 mmol/L (21-32); Calcium, Blood 7.9 mg/dL (8.5-10.1); Chloride, Blood 93 mmol/L (98-108); Creatinine, Blood 2.17 mg/dL (0.40-1.00); Glomerular Filtration Rate 22 (60-); Glucose, Blood 81 mg/dL (70-99); Potassium, Blood 4.3 mmol/L (3.5-5.5); Sodium, Blood 135 mmol/L (136-145); Vancomycin, Random 9.3 ug/mL
--- NOTE | 2021-06-28 19:16 | NUR ---
END OF SHIFT SUMMARY: PATIENT DENIED PAIN THROUGHOUT THE SHIFT. PATIENT CONTINUES TO REQUIRE BIPAP. ORAL CARE PERFORMED FREQUENTLY. BY THE END OF THE SHIFT, NO THICK SECRETIONS NOTED IN HER MOUTH. PATIENT TOLERATED ORAL CARE WELL AND RECOVERED QUICKLY FROM ANY DESATURATION. PATIENT FOLLOWING DIRECTIONS. PATIENT IS VERY FATIGUED AND FALLS ASLEEP QUICKLY WITH STAFF IN THE ROOM. PATIENT RESPONSIVE TO HER NAME. PATIENT NODS HER HEAD TO YES/NO QUESTIONS. PATIENT TOLERATED BEING TURNED FROM SIDE TO SIDE THROUGHOUT THE DAY.
--- NOTE | 2021-06-29 04:51 | NUR ---
ASSUMED CARE OF PATIENT AT 1900. PATIENT CAN ANSWER QUESTIONS APPROPROATELY, BUT IS LETHARGIC. CAN GET CONFUSED AT TIMES. COARSE LUNG SOUNDS THROUGHOUT, BUT SOME IMPROVEMENT IN THE RIGHT SIDE. BIPAP 95% ON 50% FIO2, 20/10 WITH A NONPRODUCTIVE COUGH. ORAL CARE PERFORMED Q4, PATIENT TOLERATED BEING OFF BIPAP TO DO SO. AFIB AVERAGING 110 PER TELEMETRY. BLE PITTING EDEMA SAME AT +2. PATIENT IS STILL NPO. PATIENT HAS MULTIPLE SKIN TEARS ( DOCUMENTED) WELL RASHES IN ANY FOLDS. PATIENT REPORTED BUTTOCK PAIN, WHEN ASKED IF SHE WANTED TYLENOL SHE SAID IT WOULDN'T HELP. DOCTOR ORDERED PRN OXYCODONE AND WHEN TRYING TO GIVE TO PATIENT, SHE REFUSED AND SAID THAT ACTUALLY TYLENOL DOES HELP. PATIENT IN LOW POSITION, CALL LIGHT WITHIN REACH. WILL REPORT TO ONCOMING NURSE.
--- NOTE | 2021-06-29 17:41 | NUR ---
SHIFT SUMMARY PT ALERT AND ORIENTED. ANSWERING QUESTIONS APPROPRIATELY. O2 SATS HAVE REMAINED ABOVE 90% ON BIPAP 20/10 AND 11L BLEED IN. PT DID TOLERATE SHORT BREAKS FOR ORAL CARE AND TO DRINK ON 15L OXYMIZER. PT STATES SHE GETS TOO TIRED TO STAY ON OXYMIZER FOR VERY LONG. BP STABLE. HR HAS BEEN AFIB 100'S. PT DENIES ANY PAIN. PT REPOSITIONED Q2H. PT DID HAVE INCONTINENT BM THIS SHIFT. PANG PATENT AND DRAINING. DAUGHTER TERE CALLED AND UPDATED THIS SHIFT REQAUESTED. WILL CONTINUE TO MONITOR AND REPORT TO ONCOMING RN.
--- NOTE | 2021-06-29 21:09 | NUR ---
PT IS ALERT AND ORIENTED, REPOSITIONED FOR COMFORT IN BED. PT DENIES ANY HEADACHE, CHEST PAIN, OR NAUSEA. PT'S IV TO LEFT FA FLUSHED WITHOUT DIFFICULTY, IV RIGHT NEXT TO RFA SKIN TEAR - DRESSING TO LEFT SKIN TEAR - NON SKIN DRESSING. PT HAS A MEPILEX TO HER COCCYX. BIPAP IN PLACE, SATS WNL. CALL LIGHT WITHIN REACH. BED IN LOW POSITION. FLUIDS AT BEDSIDE.
[2021-06-30 03:16] LABS: PCO2 Arterial 83.6 mmHg (35-45); PO2 Arterial 64.6 mmHg (80-100); pH Blood Arterial 7.26 (7.35-7.45)
[2021-06-30 05:09] LABS: BASOPHILS PERCENT AUTO 0 % (0-2); EOSINOPHILS PERCENT AUTO 0 % (0-6); Hematocrit 35.7 % (33.0-51.0); Hemoglobin 10.5 g/dL (11.5-16.0); IMMATURE GRAN ABSOLUTE AUTO 0.06 K/mm3 (0.00-0.10); IMMATURE GRAN PERCENT AUTO 1 % (0-1); LYMPHOCYTES ABSOLUTE AUTO 0.18 K/mm3 (0.84-5.20); LYMPHOCYTES PERCENT AUTO 2 % (21-46); MONOCYTES ABSOLUTE AUTO 0.25 K/mm3 (0.16-1.47); MONOCYTES PERCENT AUTO 3 % (4-13); Mean Corpuscular HGB 28.1 pg (26.0-34.0); Mean Corpuscular HGB Conc 29.4 g/dL (31.5-36.5); Mean Corpuscular Volume 96 fL (80-100); Mean Platelet Volume 10.5 fL (9.1-12.4); NEUTROPHILS ABSOLUTE AUTO 7.13 K/mm3 (1.96-9.15); NEUTROPHILS PERCENT AUTO 94 % (41-73); NRBC ABSOLUTE 0.02 K/mm3 (0.00-0.02); NRBC Auto 0.3 /100 WBC (0.0-0.2); Platelet Count 125 K/mm3 (150-400); RDW Standard Deviation 59.2 fL (35.1-46.3); Red Blood Cell Count 3.74 M/mm3 (3.80-5.20); White Blood Cell Count 7.62 K/mm3 (4.00-11.30)
[2021-06-30 05:36] LABS: Bun/Creatinine Ratio 51.1 (12.0-20.0); Calcium, Blood 8.4 mg/dL (8.5-10.1); Creatinine, Blood 2.33 mg/dL (0.40-1.00); Potassium, Blood 4.2 mmol/L (3.5-5.5)
--- NOTE | 2021-06-30 06:04 | NUR ---
SHIFT SUMMARY - PT REPORTED SOB WITH ACTIVITY IN BED, AND WITH REPOSITIONING. THE CURRENT MASK FOR THE BIPAP HAS NEEDED ADJUSTING FOR PT COMFORT. SATS HAVE REMAINED WNL THROUGHOUT THE NIGHT, EXCEPT WITH REPOSITIONING OF MASK, AND REPOSITIONING IN BED. PT RECOVERS WITHIN 1 MINUTE OF THESE ADJUSTMENTS OF REPOSITIONING, MASK ADJUSTMENT. PT TOLERATED PO FLUIDS, WHILE IN HIGH SEMI FOWLERS POSITION IN BED. PT HAS BEEN ALERT, AND RESPONDING APPROPRIATELY THROUGHOUT THE NIGHT. PT HAS BEEN VERY APPRECIATIVE WITH CARE. CALL LIGHT WITHIN REACH. BED IN LOW POSITION.
--- NOTE | 2021-06-30 15:45 | NUR ---
UPDATE O2 SATURATION DECREASED TO 60'S. THIS RN ENTERS ROOM TO FIND PATIENT ON BIPAP WITH RR IN THE 40'S. NO LEAKS IN THE BIPAP AT 20/10 AND 15L BLEED IN. RT CALLED FOR ASSITANCE. DEEP SUCTIOING DONE AND PT PLACED ON VISION BIPAP WITH 20/10 AND 70% FIO2. O2 SATS UP TO 90% AFTER ABOUT [address] SANTOS NOTIFIED AND FAMILY CALLED AND UPDATED. PALLIATIVE CARE NOTIFIED WELL. FAMILY DISCUSSING COMFORT CARE AT THIS TIME. WILL CONTINUE TO MONITOR CLOSELY
--- NOTE | 2021-06-30 18:24 | NUR ---
SHIFT SUMMARY PT ALERT AND ORIENTED. O2 SATS HAVE REMAINED ABOVE 90% ON BIPAP 20/10 AND 70% FIO2. RR 20-30 AT THIS TIME. PT USING ACCESSORY MUSCLES. BP STABLE. HR AFIB 100'S. PT DENIES ANY PAIN. WOUND DEVELOPING TO BRIDGE OF NOSE DUE TO BIPAP. PT HAD FULL FACE MASK ON MOST OF SHIFT, BUT HAS BEEN TRANSITIONED BACK TO REGULAR MASK DUE TO LEAKS. GEL PAD PLACED TO NOSE. PANG PATENT AND DRAINING. PT HAD AN INCONTINENT BM THIS SHIFT. WILL CONTINUE TO MONITOR AND REPORT TO ONCOMING RN.
--- NOTE | 2021-06-30 19:01 | NUR ---
Notified by nursing pt repitory drive has declined. and had to increase bipap support. Notified doctor Akhil of change in pt due to fact she know her well from years of treating her in her office. Review with nursing and doctor Akhil that prgnosis is poor kps score is 20%. Had nursing call pt daughter since they spoke with her earlier and had rapport. family advised of change and increased frailty. Called daughter this evening and updated her. advised she is working a little hard but holding her own. Advised that if she declines further tonight they will call and we will need to make her comfort care and have family come in. Advised if she is worse tomorrow they need to come in goal is reduce sffering and get her some family time before she declines further.
--- NOTE | 2021-06-30 21:30 | NUR ---
ANALILIA WAS FEELING ANXIOUS ABOUT HER BREATHING, COLETTE CHANGED SOME OF HER SETTINGS ON BIPAP / 65%, SHE ASKED FOR YOGURT, WAS UNABLE TO FIND ANY SO WE GOT HER SOME JELLO, SHE ATE ABOUT HALF. SHE ALSO TOOK IN A FEW SIPS OF RICHIE ENSURE AND WATER. SHE REMAINS IN A TACHY ATRIAL FIB RATE 110'S, SHE CONTINUES TO COMPLAIN OF AIR HUNGER, SHE HAS BEEN REPOSITIONED AND GIVEN BREAKS FROM THE BIPAP PER HER REQUEST. SHE ASKED TO NOT SPEAK WITH HER NIECE WHO HAD CALLED TO TALK, SHE WASN'T FEELING ABLE TO TALK. LEFT FOREARM CONTINUES WITH SKIN TEARS UNDER SOME TELFA DRESSING, MESH COVERING IN PLACE OVER IV AND SKIN TEARS. SHE ASKED ABOUT DR. MCKEON SEEING HER HE HASN'T BEEN IN YET.
--- NOTE | 2021-07-01 03:18 | NUR ---
ANALILIA CONTINUES TO FEEL LIKE SHE ISN'T GETTING ENOUGH AIR, COLETTE R/T CHANGED HER TO ON THE BIPAP, SATS 95%. NO FURTHER CHANGES.
[2021-07-01 04:55] LABS: BASOPHILS ABSOLUTE AUTO 0.01 K/mm3 (0.00-0.23); BASOPHILS PERCENT AUTO 0 % (0-2); EOSINOPHILS PERCENT AUTO 0 % (0-6); Hematocrit 34.9 % (33.0-51.0); Hemoglobin 10.3 g/dL (11.5-16.0); IMMATURE GRAN ABSOLUTE AUTO 0.07 K/mm3 (0.00-0.10); IMMATURE GRAN PERCENT AUTO 1 % (0-1); LYMPHOCYTES ABSOLUTE AUTO 0.15 K/mm3 (0.84-5.20); LYMPHOCYTES PERCENT AUTO 2 % (21-46); MONOCYTES ABSOLUTE AUTO 0.21 K/mm3 (0.16-1.47); MONOCYTES PERCENT AUTO 2 % (4-13); Mean Corpuscular HGB 28.1 pg (26.0-34.0); Mean Corpuscular HGB Conc 29.5 g/dL (31.5-36.5); Mean Corpuscular Volume 95 fL (80-100); NEUTROPHILS ABSOLUTE AUTO 9.15 K/mm3 (1.96-9.15); NEUTROPHILS PERCENT AUTO 95 % (41-73); Platelet Count 124 K/mm3 (150-400); RDW Standard Deviation 59.7 fL (35.1-46.3); Red Blood Cell Count 3.67 M/mm3 (3.80-5.20); White Blood Cell Count 9.59 K/mm3 (4.00-11.30)
[2021-07-01 05:13] LABS: Creatinine, Blood 2.54 mg/dL (0.40-1.00); Potassium, Blood 4.2 mmol/L (3.5-5.5)
--- NOTE | 2021-07-01 05:50 | NUR ---
ANALILIA HAS BEEN FEELING UNABLE TO BREATHE THE ENTIRE SHIFT, HER BIPAP HAS BEEN ADJUSTED TWICE THIS SHIFT FROM 20/10 70% TO 24/ 65% TO /16 65%, HER SATS ARE 95% WHEN SHE IS ABLE TO KEEP HER MACHINE CIRCUIT ATTACHED, IT HAS COME APART 3 TIMES THIS SHIFT. SHE WAS LESS ALERT THROUGHOUT THE NIGHT, BELIEVED TO BE CONNECTED TO HER SLEEPING. SHE ORIENTED WELL WITH ENCOURAGEMENT, SHE CONTINUED TO ASK FOR DRINK OFTEN, GIVEN WATER SEVERAL TIMES T/O THE SHIFT. SHE HAS BEEN ROTATED/REPOSITIONED Q2, PANG WITH MINIMAL OUTPUT, ONLY 100ML THIS SHIFT. AM LABS WERE ESSENTIALLY UNCHANGED FROM THE PREVIOUS DAY.
[2021-07-01 13:00] LABS: PO2 Arterial 69.7 mmHg (80-100)
[2021-07-01 13:01] LABS: PCO2 Arterial 77 mmHg (35-45); pH Blood Arterial 7.28 (7.35-7.45)
--- NOTE | 2021-07-01 17:48 | NUR ---
PT SUMMARY: PT FAMILY TO COME IN TO DISCUSS COMFORT CARE WITH THE PT. DR SANTOS CALLED AND UPDATED FAMILY ABOUT PT'S CURRENT SITUATION, PALLIATIVE CARE NURSE NEEMA ALSO CALLED FAMILY TO DISCUSS COMFORT CARE. PT HAS BEEN ON BIPAP MAX ON PRESSURES 26/16 65% FIO2, ABG DONE TODAY NO IMPROVEMENT FROM LAST ABG PER DR SANTOS. BP SYSTOLIC 120-130'S, HRR AFIB 110'S, AFEBRILE. RR 20-30'S SATS 88-93%. PT TOLERATING TURNING AND MOVING IN BED DESATS TO LOW 80'S TAKES TIME TO RECOVER. PT HAS BEEN NPO ALL SHIFT TAKES SIPS OF WATER WHEN TAKING BREAKS FROM BIPAP. DR MCKEON WENT AND SAW PT TODAY STARTED WITH BUMEX AND NA HCO3 AT 50MLS/HR. PT ONLY HAD 100MLS URINE OUTPUT FOR THE SHIFT. PT HAS BEEN REPOSITIONED IN BED, ORAL CARE ALSO PROVIDED. WILL REPORT TO ONCOMING SHIFT.
--- NOTE | 2021-07-01 20:08 | NUR ---
Multiple vists today and review of pt with dr ruiz. Called daughter to have family visit. pt kps score is 30%. reccomend comfort care to family.
[2021-07-02 05:27] LABS: Hematocrit 37.2 % (33.0-51.0); Hemoglobin 10.9 g/dL (11.5-16.0); Mean Corpuscular HGB 27.9 pg (26.0-34.0); Mean Corpuscular HGB Conc 29.3 g/dL (31.5-36.5); Mean Corpuscular Volume 95 fL (80-100); Mean Platelet Volume 10.7 fL (9.1-12.4); NRBC ABSOLUTE 0.02 K/mm3 (0.00-0.02); NRBC Auto 0.2 /100 WBC (0.0-0.2); Platelet Count 110 K/mm3 (150-400); RDW Coefficient Variation 17.2 % (11.7-14.2); RDW Standard Deviation 60.1 fL (35.1-46.3); White Blood Cell Count 10.66 K/mm3 (4.00-11.30)
--- NOTE | 2021-07-02 05:46 | NUR ---
ANALILIA CONTINUES ON THE BIPAP SETTINGS, 65%. HER MENTAL STATE HAS DECLINED THROUGHOUT THIS SHIFT. SHE BEGAN THE SHIFT VERY ALERT AND COOPERATIVE. HER FAMILY CAME IN TO DISCUSS COMFORT CARE WITH HER, STAYING FOR ABOUT 2 HOURS. AFTERWHICH HER ABILITY TO SWALLOW MEDS AND SIP WATER DECLINED FROM THE START. SHE ASKED THIS NURSE IF SHE WAS GOING TO TONIGHT, ADVISED THAT IT IS UNKNOWN FOR CERTAIN BUT THAT SHE IS VERY CRITICAL IN THAT HER TREATMENT IS MAXED OUT FOR HER BREATHING. SHE ASKED THAT SHE RECEIVE MEDICATION TO HELP HER, AN ORDER WAS OBTAINED FROM FOR MORPHINE. GIVEN. SHE WAS TURNED AND CHANGED AND CLEANED UP AROUND 0400. SHE NO LONGER IS OPENING HER EYES AND SPEAKING TO STAFF. HER SATS REMAIN >92% WITH HER HEART RATE VARYING FROM 110'S TO 140'S. WILL PHONE HER DAUGHTER WITH THE UPDATE BEFORE REPORT GIVEN.
[2021-07-02 05:56] LABS: Albumin, Blood 2.3 g/dL (3.4-5.0); Albumin/Globulin Ratio 0.4 (0.8-1.8); Bilirubin, Total 0.5 mg/dL (0.1-1.0); Bun/Creatinine Ratio 41.7 (12.0-20.0); Calcium, Blood 8.3 mg/dL (8.5-10.1); Creatinine, Blood 3.02 mg/dL (0.40-1.00); Globulin, Blood 5.6 g/dL (2.2-4.0); Magnesium, Blood 2.8 mg/dL (1.6-2.4); Phosphorus, Blood 4.6 mg/dL (2.5-4.9); Potassium, Blood 4.3 mmol/L (3.5-5.5); Total Protein, Blood 7.9 g/dL (6.4-8.2)
[2021-07-02 06:22] LABS: PCO2 Arterial 81.1 mmHg (35-45); PO2 Arterial 64.9 mmHg (80-100); pH Blood Arterial 7.26 (7.35-7.45)
[2021-07-02 07:00] LABS: BAND PERCENT MAN 1 % (0-8); BASOPHILS PERCENT MAN 0 % (0-2); EOSINOPHILS PERCENT MAN 0 % (0-6); LYMPHOCYTES PERCENT MAN 1 % (21-46); MONOCYTES ABSOLUTE MAN 0.21 K/mm3 (0.16-1.47); MONOCYTES PERCENT MAN 2 % (4-13); NEUTROPHILS ABSOLUTE MAN 10.34 K/mm3 (1.96-9.15); SEG NEUTROPHILS PERCENT MAN 96 % (41-73); TOTAL CELLS COUNTED 100
--- NOTE | 2021-07-02 14:48 | NUR ---
Ethics consult order processed. Concerns expressed regarding the installation of a temporary dialysis port in the instance of the principal. Case details, medical history and prognosis reviewed with the interventionalist post-proceduraly. Advance care planning instrument discussed with the daughter. I explained that the device stipulates limited, basic and non-invasive treatment only, and that renal therapy is not quantifiable in those terms. I also discouraged her from pursuing a permanent catheter arrangement, as this would circumvent her moms expressed wishes, and be an affront to her dignity of choice and prerefence. Thank you for this consult. Jack Perera ThD
--- NOTE | 2021-07-02 18:37 | NUR ---
PT SUMMARY: PT HAD DIALYSIS TODAY GOT 500MLS OUT PER DIALYSIS NURSE, PT NOT TOLERATING HR GOES UP TO 140-150'S, DR MCKEON MADE AWARE WILL TRY DIALYSIS AGAIN TOMORROW. WILL CONTINUE BUMEX 5MG BID. PT ONLY HAD 150MLS URINE OUTPUT, URINE BROWN YELLOW IN COLOR. VITALS BP SYSTOLIC 100-120'S, HRR 110-140'S NO TELE ORDER AT THIS TIME. AFEBRILE. BIPAP SETTINGS 26/16 70% FIO2 SATS 88-92% DESATS TO LOW 80'S WITH EXERTION. IJ PLACED FOR TEMPORARY DIALYSIS ACCESS ON RIGHT SIDE OF NECK CXR CONFIRMS PLACEMENT. CONTACTED FAMILY PRIOR TO PROCEEDING DIALYSIS PALLIATIVE CARE NURSE AND ETHICS CONSULT INVOLVE FAMILY STILL PROCEEDED TRYING DIALYSIS TREATMENT. PT IS NOW WORN OUT POST DIALYSIS VITALS HRR 120'S, BP SYSTOLIC 120'S UNABLE TO TAKE PO MEDS, BARELY RESPONDING, ONLY OPENS EYES WHEN RESPONDING. DAUGHTER TERE UPDATED REGARDING PT CURRENT STATUS. PT HAS BEEN REPOSITIONED IN BED ORAL CARE PROVIDED. CALL LIGHTS WITHIN REACH WILL MONITOR
[2021-07-03 04:21] LABS: PO2 Arterial 56.6 mmHg (80-100)
[2021-07-03 04:22] LABS: PCO2 Arterial 91.7 mmHg (35-45); pH Blood Arterial 7.23 (7.35-7.45)
--- NOTE | 2021-07-03 06:39 | NUR ---
PT. PROGRESS NOTE PT. CONTINOUS TO DETERIORATE. PT. IS NON VERBAL AT THE TIME, UNABLE TO SWALLOW WATER OR MEDICATION. PT. REPOSITINED Q2HRS, AND TRIED TO MAINTAIN COMFORTABLE POSSIBLE. ALLEVYN REPLACED ON SKIN TEARS AND SEEMS COMFERTABLE AT THE TIME. ABG'S WERE DRAWN THIS MORNING BECOMING MORE CRITICAL PT. IS A DNR/DNI DR. MCKEON IS AWARE AND STATED PT. WILL GO TO DIALYSIS TODAY. SINCE PT. UNABLE TO SWALLOW PILLS WANTS THE PT. TO BE ON SOME TYPE OF CARDIAC MEDICATION WILL RELAY INFORMATION TO DAY RN.
[2021-07-03 06:46] LABS: Hemoglobin 10.4 g/dL (11.5-16.0); Mean Corpuscular HGB Conc 28.9 g/dL (31.5-36.5); Mean Corpuscular Volume 97 fL (80-100); Mean Platelet Volume 9.9 fL (9.1-12.4); NRBC ABSOLUTE 0.03 K/mm3 (0.00-0.02); NRBC Auto 0.3 /100 WBC (0.0-0.2); Platelet Count 97 K/mm3 (150-400); RDW Coefficient Variation 17.1 % (11.7-14.2); RDW Standard Deviation 61.5 fL (35.1-46.3); Red Blood Cell Count 3.72 M/mm3 (3.80-5.20); White Blood Cell Count 10.58 K/mm3 (4.00-11.30)
[2021-07-03 07:18] LABS: Albumin, Blood 2.8 g/dL (3.4-5.0); Anion Gap 4 mmol/L (6-16); Blood Urea Nitrogen 95 mg/dL (8-24); Bun/Creatinine Ratio 34.4 (12.0-20.0); CO2, Blood 37 mmol/L (21-32); Calcium, Blood 8.4 mg/dL (8.5-10.1); Chloride, Blood 96 mmol/L (98-108); Creatinine, Blood 2.76 mg/dL (0.40-1.00); Glomerular Filtration Rate 17 (60-); Glucose, Blood 151 mg/dL (70-99); Magnesium, Blood 2.5 mg/dL (1.6-2.4); Phosphorus, Blood 4.2 mg/dL (2.5-4.9); Potassium, Blood 3.9 mmol/L (3.5-5.5); Sodium, Blood 137 mmol/L (136-145)
--- NOTE | 2021-07-03 10:36 | NUR ---
Call to Dr. Franklin regarding the elevated heart rate, and pt's inability to take oral medications. Oral meds will be changed as appropriate to non-oral routes.
--- NOTE | 2021-07-03 12:19 | NUR ---
Palliative care called and spoke with daughter, who was going then to talk with her own siblings and call us back. There was no call back, so at this time I called and spoke with Lili to see if they had reached a decision. She said she had called and asked for an update from the nurse. I explained that I am the nurse, and I gave her an update on her mom's condition. Explained that she is not doing well, max bipap settings, 90% oxygen delivery, and barely maintaining spo2 90% at complete bedrest; fluid overloaded, but did not tolerate the dialysis well yesterday either. Lili said that she was going to call her siblings and give us a call back at [phone].
--- NOTE | 2021-07-03 13:43 | NUR ---
Pt's heart rate remains elevated,noted new order andfollowed administration of cardizem IV . Pt was repositioned, oral care done. She denies pain, but she is breathing with her mouth wide open on high bipap pressures and high oxygen flow. Mouth appears very dry. Often her lower lip falls out below the mask as she drops her jaw Pillows repositioned to no avail. IV sodium bicarb continues to infuse at 50 cc/hour as ordered. LUng sounds are very coarse, and edema of hands noted, pitting edema also of pretibial areas. Pt continues to be lethargic, opens eyes only when a speak to her loudly, shakes her head no when asked if she is having pain.
--- NOTE | 2021-07-03 14:48 | NUR ---
Multiple calls to family about pt prognosis. they are questioning weathe further dialysis will help. review of pt lack of tolerance with dialysis staff. Family speaking with nephrology. pt kps score 20% approching 10% sats in 80s. will continue to help family reach acceptance.
--- NOTE | 2021-07-03 15:24 | NUR ---
Pt remains on bipap, pressures 26/16, fiO2 100%, maintaining spO2 82-86%. Occasionally she has had fecal incontinence, and the repositioning during care causes desaturation into 78-79% range. Heart rate 109-133 bpm, pulses strong but irregular. RR 21-25/min on the bipap. Oral care and repositioning for comfort done at this time. No return phone calls to PCU from any family members. Noted another order for ethics consult was put in today, Jack Perera note from yesterday noted as well.
--- NOTE | 2021-07-03 18:59 | NUR ---
Marjan has her eyes closed, appears relaxed. RR 23 settings 27/16 on bipap 100% fiO2. Right arm elevated on blanket as the right hand appears increasingly swollen. NO movement of her extremities. Opens her eyes with stimulation.
--- NOTE | 2021-07-03 19:02 | NUR ---
Ethics consult requested for physican and staff support for pt with suffering from COVID 19 and multiple comorbid conditions. [facility] directive 55 applies to pt in offering pt and family appropriate oppertunities to prepare for . Family was notified three times of declining conditions and oxygen saturation. Attemtpted to discuss and support family in decion making. Was advised they would discuss as family and contact patients boiling off winder. Further apttemtps were made to contact family to come in and be with pt and no reponse. pt has old polst on file that stated limited treatment and on this admission deescated her care options by making herself a DNR. [place] directive 57 supports the persons right to express their decision to forgo extrodinary or disporportional means to preserve life. Patients physiologic intolerance of ultra filtration and dialysis should be considred in pt exprssions of care and burden of suffering. Will attempt contact again with family. Will get two physicans to review and support patients expressed documents, wishes and orders. Will review pt clinical diagnositce with physicians for comprahensive prognositication. Khadar attempt family meeting with chaplian and physican for holistic and compassionte interation to address familyies moral distress and grief.
--- NOTE | 2021-07-03 19:39 | NUR ---
summary Marjan is still very lethargic, only responding to verbal stimulation; otherwise she keeps her eyes closed, only opening them when we are doing care or talking to her. She has shaken her head no in response to questions, but otherwise is not engaging in conversation this evening. bipap settings remain as before. Heart rate 110-125, blood pressure somewhat stable. Urine output 50 cc total this shift. spo2 is remaining 86-88% on 100% fio2. No return phone calls from any family members this shift. Report was given to AMADOR Freitas.
--- NOTE | 2021-07-03 23:15 | NUR ---
PATIENT WAS MAINTING OXYGEN SATURATIONS OF 77%-82%. ALL INTERVENTION WAS DONE WITH NO MAJOR INPROVEMENT. DR MCKEON WAS CALLED TO OBTAIN ORDERS AND IF HE WANTED PATIENT TO CONTINUE HER FLUIDS. STATED HE WANTED HER TO CONTINUE THE FLUIDS AND HE ALSO GAVE ORDERS FOR A TELE ORDER TO MONITOR HER HEART RATE TO BE ABLE TO GIVE HER METROPLOL TO LOWER HER HEART RATE WHICH WAS BETWEEN 90-155 BE MAINTINING THE 130S 140S. A ONE TIME ORDER FOR SOLUMEDRO WAS GIVEN. NO ADDITIONAL ORDER WAS GIVEN. WILL CONTINUE TO MONITOR PATIENT.
[2021-07-04 03:42] LABS: Hematocrit 44.2 % (33.0-51.0); Hemoglobin 12.1 g/dL (11.5-16.0)
[2021-07-04 03:54] LABS: Albumin, Blood 2.7 g/dL (3.4-5.0); Anion Gap 4 mmol/L (6-16); Blood Urea Nitrogen 110 mg/dL (8-24); Bun/Creatinine Ratio 29.7 (12.0-20.0); CO2, Blood 38 mmol/L (21-32); Calcium, Blood 8.6 mg/dL (8.5-10.1); Chloride, Blood 94 mmol/L (98-108); Glomerular Filtration Rate 12 (60-); Glucose, Blood 184 mg/dL (70-99); Potassium, Blood 4.7 mmol/L (3.5-5.5); Sodium, Blood 136 mmol/L (136-145)
[2021-07-04 04:10] LABS: Phosphorus, Blood 7.4 mg/dL (2.5-4.9)
--- NOTE | 2021-07-04 06:39 | NUR ---
DR TRAN WAS NOTIFED OF THE PATIENT'S URINE OUTPUT OF 20ML FOR THE WHOLE SHIFT AND INFORMED THE MD SHE WAS ALSO ON FLUIDS. MD STATED TO KEEP THINGS THEY ARE.
--- NOTE | 2021-07-04 06:40 | NUR ---
SHIFT SUMMARY THE PATIENT IS UNABLE TO VERBALLY STATE HER NEEDS. THE PATIENT RESPONDES TO RN SHAKING HER BY OPENING HER EYES THEN SHE CLOSES HER EYES BACK. PATIENT IS MAXED OUT ON BIPAP AT 24/16 AND ON 100 FIO2 AND SATURATIING IN THE MID 80S AT 86%. PATIENT WAS FREQUENTLY CHECKED ON. MD WAS CALLED DURING THE SHIFT SEE RN NOTE. PATIENT IS AFIB RVR AND GOT PRN LOPRESSOR SEE EMAR WHICH HELP REDUCE THE WORK LOAD. CALL LIGHT IS IN REACH. MD WAS CONTACTED IN THE MORNING FOR URINE OUTPUT SEE RN NOTES. WILL CONTINUE TO MONITOR PATIENT. TEMP AND BLOOD PRESSURE WERE STABLE. PATIENT'S EDEMA ALSO GOT WORSE DURING THE SHIFT AND MD NOTIFED. WILL CONTINUE TO MONITOR.
--- NOTE | 2021-07-04 11:49 | NUR ---
SPOKE WITH DR. CAPPS ABOUT PT RECEIVING DIALYSIS. DR. CAPPS STATED THAT DIALYSIS SHOULD BE HELD UNTIL THE PT'S FAMILY IS ABLE TO BE CONTACTED DUE TO HER FRAGILE CONDITION. PT SATTING IN THE LOW 80'S AND HR IN THE 130'S. DR. CAPPS FEELS IT IS APPROPRIATE TO CONFIRM THE FAMILY'S WISHES BEFORE PROCEDING WITH THE PROCEDURE DUE TO THE POTENTIAL RISKS. WILL CONTACT PALLIATIVE CARE IN ORDER TO GET IN TOUCH WITH FAMILY. RELAYED THIS INFORMATION TO RELAY ADJUSTER.
--- NOTE | 2021-07-04 12:59 | NUR ---
Introduction; PT refered Syed Franklin MD Assessment: PT presented lying in bed, minimal response to voice and shoulder touch. PT was moving her head, in what appeared to be a manner to get comfortable. PT family was not present. Intervention: Offered PT prayer. Offered PT scripture reading. Outcome: PT received prayer. PT received scripture reading. Follow-Up: As needed or requested.
--- NOTE | 2021-07-04 15:35 | NUR ---
PT O2 CONSISTENTLY 79-80% MAXED OUT ON BIPAP. PT ALSO TACHYCARDIC AND AVERAGING IN THE 130'S. DR. CAPPS AWARE AND MEETING WITH PT'S FAMILY.
--- NOTE | 2021-07-04 15:51 | NUR ---
FAMILY TO BEDSIDE.
--- NOTE | 2021-07-04 16:20 | NUR ---
Pt's family met with Dr. Franklin today to go over last minute questions. They have decided on comfort care for patient, and the entire family is agreeable. Dr. Franklin notified, and comfort care orders placed, including comfort medications. Bedside nurse is aware, and will reach out if requires assistance. Family is taking turns visiting pt prior to withdrawing care.
--- NOTE | 2021-07-04 16:24 | NUR ---
PT MADE COMFORT CARE AT THIS TIME.
--- NOTE | 2021-07-04 17:51 | NUR ---
PT MADE COMFORT CARE AND FAMILY MADE DECISION TO HAVE BIPAP REMOVED FOR COMFORT. MEDICATED FOR COMFORT AND BIPAP REMOVED AT 1718 AND SWITCHED TO NON-REBREATHER AT 15 LITERS. PATIENT PASSED AND TIME OF IS 1742.
--- NOTE | 2021-07-04 18:18 | NUR ---
SHIFT SUMMARY PT AT 0133. FAMILY AT THE BEDSIDE WITH PATIENT.
--- NOTE | 2021-07-04 20:12 | NUR ---
THE HOME CAME TO ON CALL THE PATIENT 07/04/21 AT 195. 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
== END 2021-07-04 19:58 | DRG 177 ==
LOC: ER 00:49 → SURS 05:03 → ERHOLD 05:03 → SURS 05:23 → ER 05:23 → ERHOLD 12:07 → SURS 12:07
PROVIDERS: Emergency Medicine; Internal Medicine; Internal Medicine Nephrology; Pharmacist; ADMIT Internal Medicine
PROC: 5A09557 Assistance with Respiratory Ventilation, Greater than 96 Consecutive Hours, Continuous Positive Airway Pressure (ICD-10-PCS; principal; 2021-06-27)
PROC: 3E0333Z Introduction of Anti-inflammatory into Peripheral Vein, Percutaneous Approach (ICD-10-PCS; 2021-06-27)
PROC: 8E0ZXY6 Isolation (ICD-10-PCS; 2021-06-27)
PROC: 02HV33Z Insertion of Infusion Device into Superior Vena Cava, Percutaneous Approach (ICD-10-PCS; 2021-07-02)
PROC: 5A1D70Z Performance of Urinary Filtration, Intermittent, Less than 6 Hours Per Day (ICD-10-PCS; 2021-07-02)
DX: U07.1 COVID-19 (principal); J96.21 Acute and chronic respiratory failure with hypoxia; J96.22 Acute and chronic respiratory failure with hypercapnia; J12.82 Pneumonia due to coronavirus disease 2019; Q79.1 Other congenital malformations of diaphragm; I50.33 Acute on chronic diastolic (congestive) heart failure; N17.9 Acute kidney failure, unspecified; N18.4 Chronic kidney disease, stage 4 (severe); J44.0 Chronic obstructive pulmonary disease with (acute) lower respiratory infection; Z68.41 Body mass index [BMI] 40.0-44.9, adult; E87.2 Acidosis; I48.20 Chronic atrial fibrillation, unspecified; G93.49 Other encephalopathy; E66.2 Morbid (severe) obesity with alveolar hypoventilation; Z66 Do not resuscitate; Z51.5 Encounter for palliative care; E11.22 Type 2 diabetes mellitus with diabetic chronic kidney disease; E03.9 Hypothyroidism, unspecified; G25.81 Restless legs syndrome; E66.01 Morbid (severe) obesity due to excess calories; J44.9 Chronic obstructive pulmonary disease, unspecified; I27.20 Pulmonary hypertension, unspecified; Z79.899 Other long term (current) drug therapy; Z88.8 Allergy status to other drugs, medicaments and biological substances; Z90.49 Acquired absence of other specified parts of digestive tract; Z90.710 Acquired absence of both cervix and uterus; Z98.890 Other specified postprocedural states; E86.0 Dehydration; G47.33 Obstructive sleep apnea (adult) (pediatric); K21.9 Gastro-esophageal reflux disease without esophagitis; F41.9 Anxiety disorder, unspecified; K43.9 Ventral hernia without obstruction or gangrene; Z79.01 Long term (current) use of anticoagulants; D63.1 Anemia in chronic kidney disease; Z99.81 Dependence on supplemental oxygen; R74.01 Elevation of levels of liver transaminase levels; J98.09 Other diseases of bronchus, not elsewhere classified
CPT/HCPCS: 31720; 36415; 36600; 51702; 70450; 71045; 71250; 76770; 80048; 80053; 80069; 80202; 81001; 82728; 82803; 82947; 83615; 83735; 83880; 84100; 84145; 84439; 84443; 85014; 85018; 85025; 85027; 87086; 93005; 93010; 94660; 94667; 94668; 94762; 96365-59; 96366-59; 96372-59; 96375-59; 99285-25; A9270; J1100; J1644; J1650; J1940; J2060; J2270; J2310; J2543; J2930; J3370; J7030; J7070; P9041; P9046; U0004